=== PATIENT | female | born 1990 | race Caucasian/White ===

== ENCOUNTER 2021-12-22 11:47 | Outpatient (CLI) | payer BC, SELFPAY ==
[2021-12-22 20:16] LABS: Lab Add On Test New Spec Needed
[2021-12-23 14:28] LABS: Strep B DNA Probe NEGATIVE (Negative)
--- OUTSIDE RECORDS SUMMARY | 2021-12-29 21:56 | XMS_ITS | Encounter Summary ---
:1990 Author Organization [facility] Address [address] [place] [address] Care Team Providers Name Role Phone Unassigned, Pcp Primary Care Provider Unavailable Encounter Details Date Type Department Care Team Description 06/11/2021 Silent Schedule Department of Moni Gross Encounter For Obstetrics and E MIvory Supervision Of Other Gynecology in [address] Normal [place], [place] Unspecified Trimester [address] [address] [place], [place] [phone] (Work) [phone] Social History Tobacco Use Types Packs/Day Years Used Date Smoking Tobacco: Never Smokeless Tobacco: Never Alcohol Use Standard Drinks/Week Comments Not Currently 0 (1 standard drink = 0.6 oz pure alcoho l) Alcohol Habits Answer Date Recorded How often do you have a drink containing alcohol? Never 05/22/2021 How many drinks containing alcohol do you have on a typical Not asked day when you are drinking? How often do you have six or more drinks on one occasion? No t asked Comment: Not asked Social Isolation Answer Date Recorded In a typical week, how many times do you More than three marianne es a week 05/22/2021 talk on the phone with family, friends, or neighbors? How often do you get together with friends Twice a week 05/22/2021 or relatives? How often do you attend christian or Never 2020 druze services? Do you belong to any clubs or No 05/22/2021 organizations such as christian groups, unions, fraternal or athletic groups, or school groups? How often do you attend meetings of the Never 05/22/2021 clubs or organizations you belong to? Are you now , , , Never 05/22/2021 , never or living with a partner? Physical Activity Answer Date Recorded On average, how many days per week do you engage in moderate to 6 days 05/22/2021 strenuous exercise (like walking fast, running, jogging, dancing, swimming, biking, or other activities that cause a light or heavy sweat)? On average, how many minutes do you engage in exercise at th is 50 min 05/22/2021 level? Stress Answer Date Recorded Do you feel stress - tense, restless, nervous, or Only a lit tle 05/22/2021 anxious, or unable to sleep at night because your mind is troubled all the time - these days? Financial Resource Strain Answer Date Recorded How hard is it for you to pay for the very basics like Not h ernesto at all 05/22/2021 food, housing, medical care, and heating? Intimate Partner Violence Answer Date Recorded Within the last year, have you been afraid of your partner o r No 05/22/2021 ex-partner? Within the last year, have you been humiliated or emotionall y No 05/22/2021 abused in other ways by your partner or ex-partner? Within the last year, have you been kicked, hit, slapped, or No 05/22/2021 otherwise physically hurt by your partner or ex-partner? Within the last year, have you been raped or forced to have any No 05/22/2021 kind of sexual activity by your partner or ex-partner? Food Insecurity Answer Date Recorded Within the past 12 months, you worried that your food would Never true 05/22/2021 run out before you got money to buy more. Within the past 12 months, the food you bought just didn't N ever true 05/22/2021 last and you didn't have money to get more. Transportation Needs Answer Date Recorded In the past 12 months, has lack of transportation kept you f rom No 05/22/2021 medical appointments or from getting medications? In the past 12 months, has lack of transportation kept you f rom No 05/22/2021 meetings, work, or getting things needed for daily living? Housing Stability Answer Date Recorded In the last 12 months, was there a time when you were not ab le No 05/22/2021 to pay the mortgage or rent on time? In the last 12 months, how many places have you lived? 1 05/22/2021 In the last 12 months, was there a time when you did not hav e a No 05/22/[address] to sleep or slept in a [facility] (including now)? Education Answer Date Recorded What is the highest level of school Bachelor's degree (e.g., BA, AB, 05/22/2021 you have completed or the highest BS) degree you have received? Sex Assigned at Date Recorded Female 05/18/2021 7:19 PM OVERHEAD CRANE TECHNICIAN documented as of this encounter Plan of Treatment Not on filedocumented as of this encounter Procedures Procedure Name Priority Date/Time Associated Comments Diagnosis US OB FIRST RAD - Routine 06/11/2021 9:19 Encounter For Results fo r this TRIMESTER (most inpatients AM OVERHEAD CRANE TECHNICIAN Supervision Of procedure are in and all Other Normal the results outpatients) section. Unspecified Trimester documented in this encounter Results US OB First Trimester (06/11/2021 9:19 AM OVERHEAD CRANE TECHNICIAN) Anatomical Region Laterality Modality Body, Ultrasound OB RST LOS, Ultrasound ARZ LOS N/A Ultrasound Specimen (Source) Anatomical Collection Method Collection Time Re ceived Time Location / / Volume Laterality 06/11/2021 10:09 AM OVERHEAD CRANE TECHNICIAN Impressions 06/11/2021 10:11 AM OVERHEAD CRANE TECHNICIAN Single, viable, intrauterine with ultrasound derived estimated due date consistent with prior LMP dating. ??Subchorionic hemorrhage present. In general, it is reasonable to use the sonographically derived EDWARD if it differs from that calculated using the last menstrual period (LMP) by more than seven days in the fir st trimester and by more than 10 days in the second trimester. In the third trimester, a three-week discrepancy between LMP dating and ultra sound dating is allowed before changing EDWARD. [facility] in [place] ARMORED SERVICE TECHNICIAN Dept. [phone] Narrative 06/11/2021 10:11 AM OVERHEAD CRANE TECHNICIAN First Trimester Ultrasound EXAM: US OB FIRST TRIMESTER HEALTH CARE PROVIDER: Dr. Gross COMPARISON: N/A RELEVANT CLINICAL INFORMATION/INDICATION : dating Estimated Date of Delivery (EDWARD) by LMP: 01/20/2022. Gestational age by LMP: 8 weeks 1 day FINDINGS: Gestational Sac: single, intrauterine Yolk Sac: 3.5 mm. heart rate: 161 beats per minute. [place] Rump Length: 19 mm. Age and EDWARD by current ultrasound measur ements: ??8 weeks 3 days, EDWARD 01/18/2022. Right ovary: normal Left ovary: normal Adnexa: normal Uterus: 2.2 x 1.4 x 1.1 cm subchorionic hemorrhage Uterine position: anteverted Cul-de-sac: normal Procedure Note Neelam Wagner M.D. - 06/11/2021Form atting of this note might be different from the original. First Trimester Ultrasound EXAM: US OB FIRST TRIMESTER HEALTH CARE PROVIDER: Dr. Gross COMPARISON: N/A RELEVANT CLINICAL INFORMATION/INDICATION : dating Estimated Date of Delivery (EDWARD) by LMP: 01/20/2022. Gestational age by LMP: 8 weeks 1 day FINDINGS: Gestational Sac: single, intrauterine Yolk Sac: 3.5 mm. heart rate: 161 beats per minute. [place] Rump Length: 19 mm. Age and EDWARD by current ultrasound measur ements: 8 weeks 3 days, EDWARD 01/18/2022. Right ovary: normal Left ovary: normal Adnexa: normal Uterus: 2.2 x 1.4 x 1.1 cm subchorionic hemorrhage Uterine position: anteverted Cul-de-sac: normal IMPRESSION: Single, viable, intrauterine w ith ultrasound derived estimated due date consistent with prior LMP dating. Subchorionic hemorrhage present. In general, it is reasonable to use the sonographically derived EDWARD if it differs from that calculated using the last menstrual period (LMP) by more than seven days in the fir st trimester and by more than 10 days in the second trimester. In the third trimester, a three-week discrepancy between LMP dating and ultra sound dating is allowed before changing EDWARD. [facility] in [place] ARMORED SERVICE TECHNICIAN Dept. [phone] Moni Gross M.D. IMG OB US PROCEDURES documented in this encounter Visit Diagnoses Diagnosis Encounter For Supervision Of Other Veronica l Unspecified Trimester (HCC) documented in this encounter Additional Health Concerns Assessment Noted Time PHQ-9 Depression Total Score: 1 06/11/2021 10:22 AM CS T documented as of this encounter Care Teams Detective Chief Relationship Specialty Start Date End Date Unassigned, Pcp PCP - General Family Medicine 06/11/21 documented as of this encounter
--- OUTSIDE RECORDS SUMMARY | 2021-12-29 21:56 | XMS_ITS | Encounter Summary ---
:1990 Author Organization [facility] Address [address] [place] [address] Care Team Providers Name Role Phone Unassigned, Pcp Primary Care Provider Unavailable Encounter Details Date Type Department Care Team Description 06/11/2021 Hospital Encounter Department of Moni Gross For Laboratory Medicine Liz Barr Supervision Of Other in [place], [address] Normal [place], [place] Unspecified [address] [address] Trimester [place], [place] [phone] (Work) [phone] Social History Tobacco Use Types Packs/Day Years [...] or relatives? How often do you attend judaism or Never 2020 mormon services? Do you belong to any clubs or No 05/22/2021 organizations such as judaism groups, unions, fraternal or athletic groups, or [...] place to sleep or slept in a long-term (including now)? Education Answer Date Recorded What is the highest level of school Bachelor's degree (e.g., BA, AB, 05/22/2021 you have completed or the highest BS) degree you have received? Sex Assigned at Date Recorded Female 05/18/2021 7:19 PM HOT SAW HELPER documented as of this encounter Medications at Time of Discharge Medication Sig Dispensed Refills Start Date End Date vits96/iron Take 2 tablets by 0 fum/folic ( mouth daily. vitamin-ferrous fumarate-FA) 27 mg iron- 800 mcg per tablet documented as of this encounter Plan of Treatment Not on filedocumented as of this encounter Procedures Procedure Name Priority Date/Time Associated Diagnosis Comme nts HIV-1/-2 AG AND AB Routine 06/11/2021 9:02 AM Encounter For Re sults for this SCRN, HOT SAW HELPER Supervision Of Other proce dure are in PLASMA Normal the results Unspecified section. Trimester SYPHILIS TOTAL AB Routine 06/11/2021 9:02 AM Encounter For Res ults for this W/ REFLEX S HOT SAW HELPER Supervision Of Other procedu re are in Normal the results Unspecified section. Trimester HBS ANTIGEN Routine 06/11/2021 9:02 AM Encounter For Results for this , S HOT SAW HELPER Supervision Of Other procedu re are in Normal the results Unspecified section. Trimester ABORH, RBC Routine 06/11/2021 9:02 AM Encounter For Results for this HOT SAW HELPER Supervision Of Other procedu re are in Normal the results Unspecified section. Trimester RUBELLA ANTIBODIES, Routine 06/11/2021 9:02 AM Encounter For R esults for this IGG HOT SAW HELPER Supervision Of Other procedu re are in Normal the results Unspecified section. Trimester CBC WITHOUT Routine 06/11/2021 9:02 AM Encounter For Results for this DIFFERENTIAL, B HOT SAW HELPER Supervision Of Other proc edure are in Normal the results Unspecified section. Trimester ANTIBODY SCREEN, B Routine 06/11/2021 9:02 AM Encounter For Re sults for this HOT SAW HELPER Supervision Of Other procedu re are in Normal the results Unspecified section. Trimester documented in this encounter Results Syphilis Total Ab w/ Reflex, Serum (06/11/2021 9:02 AM HOT SAW HELPER) [facility] gist Method Time Signature Syphilis Nonreactive Nonreactive 06/14/2021 [facility] Total Ab w/ 3:47 PM HOT SAW HELPER Reflex Comment: No serologic evidence of infection with T. pallidum (syphilis). ??Repeat testing may be cons idered in patients with suspected acute or primary syphilis in 2-4 weeks. For additional information on interpreta tion of the syphilis reverse algorithm and resul ts, see: [email or web address] df Specimen Anatomical Collection Method Collection Time Receive d Time (Source) Location / / Volume Laterality Blood (Blood, 06/11/2021 9:02 AM 06/14/19 1:54 Venous) HOT SAW HELPER PM HOT SAW HELPER Moni Gross M.D. LAB BLOOD ADD-ON Performing Organization Address City/State/[facility] Phon e Number [facility] [address] [place] [address] SUPPORT CENTER [facility] [place] [address] Laboratory Medicine and Pathology [address] [place] Rubella Antibodies, IgG (06/11/2021 9:02 AM HOT SAW HELPER) athologist Signature Rubella Ab, Positive 06/12/2021 [facility] IgG, S 9:27 PM HOT SAW HELPER Comment: Results suggest response to immunization or prior exposure to the virus. ----REFERENCE VALUE---- Vaccinated: Positive (>=1.0 AI) Unvaccinated: Negative (<=0.7 AI) Rubella IgG Antibody Index 1.9 06/12/2021 9: 27 PM HOT SAW HELPER [facility] Specimen Anatomical Collection Method Collection Time Receive d Time (Source) Location / / Volume Laterality Blood (Blood, 06/11/2021 9:02 AM 06/11/19 3:36 Venous) HOT SAW HELPER PM HOT SAW HELPER Moni Gross M.D. LAB MICROBIOLOGY - BLOOD ORD ERABLES Performing Organization Address City/State/ZIP Code Phon e Number [phone] [place] [address] System [address] HIV-1/-2 Ag and Ab Scrn, Plasma (06/11/2021 9:02 AM HOT SAW HELPER) athologist Signature HIV Ag/Ab Negative Negative 06/12/2021 [facility] Scrn, 9:27 PM HOT SAW HELPER P Comment: Negative result does not rule out HIV in fection. If exposure to HIV infection occurred <14 d ays ago, contact the laboratory to request additi on of HIV-1 RNA detection / quantification test. HIV-1 p24 Ag Scrn, P Negative Negative 06/12/2021 9:27 PM HOT SAW HELPER [facility] Comment: Negative result does not rule out HIV in fection. If exposure to HIV infection occurred <14 d ays ago, contact the laboratory to request additi on of HIV-1 RNA detection / quantification test. HIV-1 Ab Scrn, P Negative Negative 06/12/2021 9:2 7 PM HOT SAW HELPER [facility] Comment: Negative result does not rule out HIV in fection. If exposure to HIV infection occurred <14 d ays ago, contact the laboratory to request additi on of HIV-1 RNA detection / quantification test. HIV-2 Ab Scrn, P Negative Negative 06/12/2021 9:2 7 PM HOT SAW HELPER [facility] Comment: Negative result does not rule out HIV in fection. If exposure to HIV infection occurred <14 d ays ago, contact the laboratory to request additi on of HIV-1 RNA detection / quantification test. Specimen Anatomical Collection Method Collection Time Receive d Time (Source) Location / / Volume Laterality Blood (Blood, 06/11/2021 9:02 AM 06/11/19 3:36 Venous) HOT SAW HELPER PM HOT SAW HELPER Moni Gross M.D. LAB MICROBIOLOGY - BLOOD ORD ERABLES Performing Organization Address City/State/ZIP Code Phon e Number [phone] [place] [address] System in [address] HBs Antigen , Serum (06/11/2021 9:02 AM HOT SAW HELPER) athologist Signature HBs Antigen Negative Negative 06/12/2021 [facility] , S 9:26 AM HOT SAW HELPER Specimen Anatomical Collection Method Collection Time Receive d Time (Source) Location / / Volume Laterality Blood (Blood, 06/11/2021 9:02 AM 06/12/19 7:17 Venous) HOT SAW HELPER AM HOT SAW HELPER Moni Gross M.D. LAB MICROBIOLOGY - BLOOD ORD ERABLES Performing Organization Address City/[facility]/ZIP Code Phon e Number [facility] [address] [place], [place] [address] SUPPORT CENTER [facility] [place] [address] Laboratory Medicine and Pathology [address] [place] CBC without Differential (06/11/2021 9:02 AM HOT SAW HELPER) P athologist Signature Hemoglobin 13.4 11.6 - 06/11/2021 [facility] 15.0 g/dL 9:11 AM HOT SAW HELPER Hematocrit 39.4 35.5 - 06/11/2021 [facility] 44.9 % 9:11 AM HOT SAW HELPER Erythrocytes 4.40 3.92 - 06/11/2021 [facility] 5.13 9:11 AM HOT SAW HELPER x10(12)/L MCV 89.5 78.2 - 06/11/2021 [facility] 97.9 fL 9:11 AM HOT SAW HELPER RBC Distrib Width 12.7 12.2 - 06/11/2021 [facility] 16.1 % 9:11 AM HOT SAW HELPER Platelet Count 163 157 - 371 06/11/2021 [facility] x10(9)/L 9:11 AM HOT SAW HELPER Leukocytes 5.7 3.4 - 9.6 06/11/2021 [facility] x10(9)/L 9:11 AM HOT SAW HELPER Specimen Anatomical Collection Method Collection Time Receive d Time (Source) Location / / Volume Laterality Blood (Blood, 06/11/2021 9:02 AM 06/11/19 9:03 Venous) HOT SAW HELPER AM HOT SAW HELPER Moni Gross M.D. LAB BLOOD ADD-ON Performing Organization Address City/State/ZIP Code Phon e Number [facility]- [address] [place] [address] [place] [address] System in [place] [address] Antibody Screen, RBC (with reflex Antibody ID) (06/11/2021 9:02 AM HOT SAW HELPER) athologist Signature Antibody Screen NEG 06/11/2021 A[facility] 6:18 PM HOT SAW HELPER Specimen Anatomical Collection Method Collection Time Receive d Time (Source) Location / / Volume Laterality Blood (Blood, 06/11/2021 9:02 AM 06/11/19 3:04 Venous) HOT SAW HELPER PM HOT SAW HELPER Moni Gross M.D. LAB BLOOD BANK TEST ORDERABL ES Performing Organization Address City/State/ZIP Code Phon e Number [facility]- [address] [place] [address] [place] [place], [place] [id number] [place] [address] ABORh, RBC (06/11/2021 9:02 AM HOT SAW HELPER) athologist Signature ABO Group A 06/11/2021 6:18 AUST PM HOT SAW HELPER Rh Type POS 06/11/2021 6:18 AUST PM HOT SAW HELPER Specimen Anatomical Collection Method Collection Time Receive d Time (Source) Location / / Volume Laterality Blood (Blood, 06/11/2021 9:02 AM 06/11/19 3:04 Venous) HOT SAW HELPER PM HOT SAW HELPER Moni Gross M.D. LAB BLOOD BANK TEST ORDERABL ES Performing Organization Address City/[facility]/ZIP Code Phon e Number [facility]- [address] [place] [address] [place] [facility] [place], [place] [id number] [place] [address] [address] [facility] documented in this encounter Visit Diagnoses Diagnosis Encounter For Supervision Of Other Veronica l Unspecified Trimester (HCC) documented in this encounter Additional Health Concerns Assessment Noted Time PHQ-9 Depression Total Score: 1 06/11/2021 10:22 AM CS T documented as of this encounter Care Teams Treater Relationship Specialty Start Date End Date Unassigned, Pcp PCP - General Family Medicine 06/11/21 documented as of this encounter
--- OUTSIDE RECORDS SUMMARY | 2021-12-29 21:56 | XMS_ITS | Encounter Summary ---
:1990 Author Organization [facility] Address [address] [place] [address] Care Team Providers Name Role Phone Unassigned, Pcp Primary Care Provider Unavailable Reason for Referral Outpatient (Routine) - Closed Specialty Diagnoses / Procedures Referred By Contact Refer red To Contact Family Medicine Moni Gross M. D. [facility] Region [address] [place] [address] Referral ID Status Reason Start Date Expiration Date Visits Requ ested Visits Authorized [id number] Closed 06/11/2021 06/11/2022 1 1 SORTER Reason for Visit Reason Comments Initial Visit Ultrasound Results Outpatient (Routine) - Closed Specialty Diagnoses / Procedures Referred By Contact Refer red To Contact Family Medicine Diagnoses Encounter For Supervision Of Other Normal Unspecified Trimester ([facility]) Moni Gross M.D. [facility] Region [address] [place] [address] Referral ID Status Reason Start Date Expiration Date Visits Requ ested Visits Authorized [id number] Closed 05/18/2021 05/18/2022 1 1 Encounter Details Date Type Department Care Team Description 06/11/2021 Routine Department of Moni Wallis For MedicineAria M.D. Supervision Of Other Clinic, in [facility] [address] [place], [place] Unspecified Trimester [address] [address] MADELYN RHODES [phone] (Work) [phone] Social History Tobacco Use Types Packs/Day Years [...] or relatives? How often do you attend yarsanism or Never 2020 judaism services? Do you belong to any clubs or No 05/22/2021 organizations such as yarsanism groups, unions, fraternal or athletic groups, or [...] place to sleep or slept in a care home (including now)? Education Answer Date Recorded What is the highest level of school Bachelor's degree (e.g., BA, AB, 05/22/2021 you have completed or the highest BS) degree you have received? Sex Assigned at Date Recorded Female 05/18/2021 7:19 PM SPUD SORTER documented as of this encounter Last Filed Vital Signs Vital Sign Reading Time Taken Comments Blood Pressure 108/70 06/11/2021 10:22 AM SPUD SORTER Pulse - - Temperature - - Respiratory Rate - - Oxygen Saturation - - Inhaled Oxygen Concentration - - Weight 80.8 kg (178 lb 2.1 oz) 06/11/2021 10:22 AM SPUD SORTER Height - - Body Mass Index - - documented in this encounter H&P Notes Moni Gross M.D. - 06/11/2021 10:15 AM CST SUBJECTIVE CHIEF COMPLAINT/REASON FOR VISIT Initial OB visit. HISTORY OF PRESENT ILLNESS Shaye Choe is a 30 y.o. female who presents to the clinic today for her first OB visit. Her last menstrual cycle was on 04/15/2021 putting her at 8w1d gestation with Estimated Date of Delivery: 01/20/22. Patient reports having nausea all day. We discussed small frequent meals. At this point, fatigue hasnot been too bad. For the most part, the patient says she is feeling ok. We went over all counseling and answered all questions. The patient has completed her lab work. I also discussed screening options. There are no concerns at this time. REVIEW OF SYSTEMS Please see HPI for pertinent positives, otherwise rest of ROS negative. CURRENT MEDICATIONS Current Outpatient Medications Medication Sig Dispense Refill ??? vits96/iron fum/folic ( vitamin-ferrous fumarate-FA) 27 mg iron- 800 mcg per tablet Take 2 tablets by mouth daily. No current facility-administered medications for this visit. ALLERGIES/CONTRAINDICATIONS Allergies Allergen Reactions ??? Neomycin-Polymyxin B-Dexameth Edema, Other (see comments) and Itching MEDICAL HISTORY Past Medical History: Diagnosis Date ??? Dysmenorrhea ??? Varicella SURGICAL HISTORY No past surgical history on file. SOCIAL HISTORY Social History Socioeconomic History ??? Marital status: Single ??? Number of children: 1 ??? Highest education level: Bachelor's degree (e.g., BA, AB, BS) Tobacco Use ??? Smoking status: Never Smoker ??? Smokeless tobacco: Never Used Vaping Use ??? Vaping Use: never used Substance and Sexual Activity ??? Alcohol use: Not Currently ??? Drug use: Never Social Determinants of Health Financial Resource Strain: Low Risk ??? Difficulty of Paying Living Expenses: Not hard at all Food Insecurity: No Food Insecurity ??? Worried About Running Out of Food in the Last Year: Never true ??? Ran Out of Food in the Last Year: Never true Transportation Needs: No Transportation Needs ??? Lack of Transportation (Medical): No ??? Lack of Transportation (Non-Medical): No Physical Activity: Sufficiently Active ??? Days of Exercise per Week: 6 days ??? Minutes of Exercise per Session: 50 min Stress: No Stress Concern Present ??? Feeling of Stress : Only a little Social Connections: Socially Isolated ??? Frequency of Communication with Friends and Family: More than three times a week ??? Frequency of Social Gatherings with Friends and Family: Twice a week ??? Attends Mandaeism Services: Never ??? Active Member of Clubs or Organizations: No ??? Attends Club or Organization Meetings: Never ??? Marital Status: Never Intimate Partner Violence: Not At Risk ??? Fear of Current or Ex-Partner: No ??? Emotionally Abused: No ??? Physically Abused: No ??? Sexually Abused: No Housing Stability: Low Risk ??? Unable to Pay for Housing in the Last Year: No ??? Number of Places Lived in the Last Year: 1 ??? Unstable Housing in the Last Year: No Social History Substance and Sexual Activity Drug Use Never Social History Substance and Sexual Activity Alcohol Use Not Currently FAMILY HISTORY Family History Problem Relation Age of Onset ??? Miscarriages / Stillbirths Mother ??? Learning disabilities Brother ??? ADD / ADHD Brother ??? Eczema Son ??? Rashes / Skin problems Son OBJECTIVE VITAL SIGNS Vitals: 06/11/21 1022 BP: 108/70 Weight: 80.8 kg There is no height or weight on file to calculate BMI. PHYSICAL EXAMINATION General: Pleasant female in no distress. HENT: TMs are normal. Mouth is moist. Pharynx is normal. Neck: Neck is supple. Heart: S1, S2 regular rate and rhythm without murmurs or rubs. Lungs: Clear to auscultation. No wheezing, rales, or rhonchi. Abdomen: Soft. I was unable to detect heart tones at this time. Pelvis: Deferred. US done for dating. Extremities: No pitting edema, clubbing, or cyanosis. Neuro: Otherwise intact. ASSESSMENT / PLAN Supervision of normal single intrauterine at 8w1d gestation Estimated Date of Delivery: 01/20/22 by LMP of 04/15/2021, Rubella immune, syphilis negative. PLAN: All labs were completed, and she has already met with Tanya Mora. Early screen was discussed. Routine counseling is given today. We reviewed her ultrasound and discussed her subchorionic hemorrhage. I explained what it was and what to be on the look out for. Patient will continue routine care. She will followup in 4 weeks for her next OB visit. She will call with any questions or concerns. This document serves as a record of services personally performed by Moni Gross M.D.. It was created on their behalf by Monique Esposito, a trained medical and scientific illustrator. The creation of this record isbased on the scribe remotely listening to the visit and the provider's statements to them. This document has been checked and approved by the attending provider. Answers for HPI/ROS submitted by the patient on 05/22/2021 Fatigue: Yes No general issues: Yes No eye issues: Yes No ENT issues: Yes No heart issues: Yes No respiratory issues: Yes Abdominal (belly) pain or cramping: Yes Constipation: Yes No muscle/bone issues: Yes No skin issues: Yes No neurologic issues: Yes No mental health issues: Yes No blood/lymph issues: Yes No urinary/reproductive issues: Yes SORTER documented in this encounter Plan of Treatment Scheduled Referrals Name Type Priority Associated Diagnoses Order S [facility] Family Medicine Outpatient Referral Routine Expec axel: office visit 07/12/2021 (clinic) (Approximate), Expires: 09/09/2022 documented as of this encounter Visit Diagnoses Diagnosis Encounter For Supervision Of Other Veronica anthony Unspecified Trimester (HCC) documented in this encounter Additional Health Concerns Assessment Noted Time PHQ-9 Depression Total Score: 1 06/11/2021 10:22 AM CS T documented as of this encounter Care Teams 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
--- OUTSIDE RECORDS SUMMARY | 2021-12-29 21:56 | XMS_ITS | Encounter Summary ---
:1990 Author Organization [facility] Address [address] [place] [address] Care Team Providers Name Role Phone Unavailable Primary Care Provider Unavailable Reason for Visit Reason Comments Nurse Visit nob ed/intake appt Encounter Details Date Type Department Care Team Description 05/26/2021 Virtual Visit Department of Moni Gross M.D. [address], [place] [address] Encounter For Obstetrics and Shanann Mora R.N. [address], [place] [address] Supervision Of Other Gynecology in Normal [place], [place] Unspecified Trimester [address] [place] [id number] Social History Tobacco Use Types Packs/Day Years [...] or relatives? How often do you attend sikhism or Never 2020 mu-ism services? Do you belong to any clubs or No 05/22/2021 organizations such as sikhism groups, unions, fraternal or athletic groups, or [...] place to sleep or slept in a jail (including now)? Education Answer Date Recorded What is the highest level of school Bachelor's degree (e.g., BA, AB, 05/22/2021 you have completed or the highest BS) degree you have received? Sex Assigned at Date Recorded Female 05/18/2021 7:19 PM SUMAC TANNER documented as of this encounter Patient Instructions Patient InstructionsShannan Mora R.N. - 05/26/2021 10:30 AM CST Review education books, brochures, handouts provided today. Be sure to let your provider know if youwould like to do the optional testing. Avoid: alcohol, drugs, smoking during . Exercise: at least 30 Minutes, 3 times per week following precautions discussed today. Follow healthy diet to maintain healthy weight gain. Discuss any medication/supplements with your provider before taking. Call or portal message your care team with any symptoms of depression. Call or portal message with any question or concerns. Material Provided Today: Beginnings: , , and [facility] brochure-[facility] C TANNER documented in this encounter Progress Notes Shannan Mora R.N. - 05/26/2021 10:30 AM CST Consult conducted via real-time audio/video technology by Shannan Mora R.N. in [facility], [place] to the patient in Patient's Home. episode opened-please see history for details. States is very active with exercise and weight lifting-has adjusted with . Advised should cause any back/abdominal discomfort or SOB. Questions about calcium requirement. Discussed and sent Source of Calcium brochure via portal. Discussed COVID 19 precautions: vaccination, good handwashing, social distance, masking. Encouraged to call with questions or concerns. C TANNER documented in this encounter Plan of Treatment Not on filedocumented as of this encounter Results (ABNORMAL) Bacterial Culture, Aerobic + Susc, Urine (06/11/2021 9:20 AM SUMAC TANNER) Analysis Performed At Patho logist Time Signature Urine Culture Mixed 06/12/2021 MKTO hilda. (A) 9:12 AM SUMAC TANNER Specimen Anatomical Collection Method Collection Time Receive d Time (Source) Location / / Volume Laterality Urine (Urine, 06/11/2021 9:20 AM 06/11/19 2:06 Midstream) SUMAC TANNER PM SUMAC TANNER Comment: Specimen Source Site: Urine Moni Gross M.D. LAB MICROBIOLOGY - GENERAL O RDERABLES Performing Organization Address City/State/ZIP Code Phon e Number [facility]- [address] [place] [address] [place] [address] System [address] (ABNORMAL) Urinalysis with Microscopic if Indicated (06/11/2021 9:20 AM SUMAC TANNER) P athologist Signature Source Urine, 06/11/2021 OWAT Urine, Clean 9:33 AM SUMAC TANNER Catch Clarity Cloudy (A) Clear 06/11/2021 OWAT 9:33 AM SUMAC TANNER Color Yellow 06/11/2021 OWAT 9:33 AM SUMAC TANNER Comment: ----REFERENCE VALUE---- Colorless Yellow Juanita Blood Negative Negative 06/11/2021 9:33 AM SUMAC TANNER [place] Nitrite Negative Negative 06/11/2021 9:33 AM SUMAC TANNER [place] Leukocyte Esterase Small (A) Negative 06/11/2021 9:33 AM CS T OW[place] Protein Negative mg/dL 06/11/2021 9:33 AM SUMAC TANNER [place] Comment: ----REFERENCE VALUE---- Negative Trace Glucose Negative Negative mg/dL 06/11/2021 9:33 AM SUMAC TANNER [place] Ketone Negative Negative mg/dL 06/11/2021 9:33 AM SUMAC TANNER OW AT Bilirubin Negative Negative 06/11/2021 9:33 AM SUMAC TANNER OW[place] pH 7.0 5.0 - 8.0 06/11/2021 9:33 AM SUMAC TANNER [place] Specific [place] 1.006 1.001 - 1.035 06/11/2021 9:33 AM SUMAC TANNER [place] Urobilinogen 0.2 0.2 - 1.0 mg/dL 06/11/2021 9:33 AM CS T OWAT Specimen Anatomical Collection Method Collection Time Receive d Time (Source) Location / / Volume Laterality Urine (Urine, 06/11/2021 9:20 AM 06/11/19 9:27 Clean Catch) SUMAC TANNER AM SUMAC TANNER Moni Gross M.D. LAB URINE ORDERABLES Performing Organization Address City/[facility] Code Phon e Number [facility]- [address] [place] [address] [facility] [place] [address] System in [place] [address] Syphilis Total Ab w/ Reflex, Serum (06/11/2021 9:02 AM SUMAC TANNER) [facility] Method Time Signature Syphilis Nonreactive Nonreactive 06/14/2021 SDSC Total Ab w/ 3:47 PM SUMAC TANNER Reflex Comment: No serologic evidence of infection with T. pallidum (syphilis). ??Repeat testing may be cons idered in patients with suspected acute or primary syphilis in 2-4 weeks. For additional information on interpreta tion of the syphilis reverse algorithm and resul ts, see: [email or web address] Specimen Anatomical Collection Method Collection Time Receive d Time (Source) Location / / Volume Laterality Blood (Blood, 06/11/2021 9:02 AM 06/14/19 1:54 Venous) SUMAC TANNER PM SUMAC TANNER Moni Gross M.D. LAB BLOOD ADD-ON Performing Organization Address City/[facility]/ZIP [facility] [place] e Number [facility] [address] [place] [address] [place] [address] [place] [address] Laboratory Medicine and Pathology [address] MADDEN Rubella Antibodies, IgG (06/11/2021 9:02 AM SUMAC TANNER) athologist Signature Rubella Ab, Positive 06/12/2021 [facility] IgG, S 9:27 PM SUMAC TANNER Comment: Results suggest response to immunization or prior exposure to the virus. ----REFERENCE VALUE---- Vaccinated: Positive (>=1.0 AI) Unvaccinated: Negative (<=0.7 AI) Rubella IgG Antibody Index 1.9 06/12/2021 9: 27 PM SUMAC TANNER [place] Specimen Anatomical Collection Method Collection Time Receive d Time (Source) Location / / Volume Laterality Blood (Blood, 06/11/2021 9:02 AM 06/11/19 3:36 Venous) SUMAC TANNER PM SUMAC TANNER Moni Gross M.D. LAB MICROBIOLOGY - BLOOD ORD ERABLES Performing Organization Address City/State/ZIP Code Phon e Number [facility]- [address] [place] [address] [place] [address] System [address] HIV-1/-2 Ag and Ab Scrn, Plasma (06/11/2021 9:02 AM SUMAC TANNER) athologist Signature HIV Ag/Ab Negative Negative 06/12/2021 [facility] Scrn, 9:27 PM SUMAC TANNER Comment: Negative result does not rule out HIV in fection. If exposure to HIV infection occurred <14 d ays ago, contact the laboratory to request additi on of HIV-1 RNA detection / quantification test. HIV-1 p24 Ag Scrn, P Negative Negative 06/12/2021 9:27 PM SUMAC TANNER CA Comment: Negative result does not rule out HIV in fection. If exposure to HIV infection occurred <14 d ays ago, contact the laboratory to request additi on of HIV-1 RNA detection / quantification test. HIV-1 Ab Scrn, P Negative Negative 06/12/2021 9:2 7 PM SUMAC TANNER [facility] Comment: Negative result does not rule out HIV in fection. If exposure to HIV infection occurred <14 d ays ago, contact the laboratory to request additi on of HIV-1 RNA detection / quantification test. HIV-2 Ab Scrn, P Negative Negative 06/12/2021 9:2 7 PM SUMAC TANNER [facility] Comment: Negative result does not rule out HIV in fection. If exposure to HIV infection occurred <14 d ays ago, contact the laboratory to request additi on of HIV-1 RNA detection / quantification test. Specimen Anatomical Collection Method Collection Time Receive d Time (Source) Location / / Volume Laterality Blood (Blood, 06/11/2021 9:02 AM 06/11/19 22 3:36 Venous) SUMAC TANNER PM SUMAC TANNER Moni Gross M.D. LAB MICROBIOLOGY - BLOOD ORD ERABLES Performing Organization Address City/[facility]/ZIP Code Phon e Number [facility]- [address] [place] [address] [place] [address] [address] HBs Antigen , Serum (06/11/2021 9:02 AM SUMAC TANNER) athologist Signature HBs Antigen Negative Negative 06/12/2021 [facility] , S 9:26 AM SUMAC TANNER Specimen Anatomical Collection Method Collection Time Receive d Time (Source) Location / / Volume Laterality Blood (Blood, 06/11/2021 9:02 AM 06/12/19 22 7:17 Venous) SUMAC TANNER AM SUMAC TANNER Moni Gross M.D. LAB MICROBIOLOGY - BLOOD ORD ERABLES Performing Organization Address City/State/ZIP Code Phon e Number [facility] [address] [place] [address] [facility] [place] [address] Laboratory Medicine and Pathology [address] MADDEN CBC without Differential (06/11/2021 9:02 AM SUMAC TANNER) athologist Signature Hemoglobin 13.4 11.6 - 06/11/2021 OWAT 15.0 g/dL 9:11 AM SUMAC TANNER Hematocrit 39.4 35.5 - 06/11/2021 OWAT 44.9 % 9:11 AM SUMAC TANNER Erythrocytes 4.40 3.92 - 06/11/2021 OW[place] 5.13 9:11 AM SUMAC TANNER x10(12)/L MCV 89.5 78.2 - 06/11/2021 OWAT 97.9 fL 9:11 AM SUMAC TANNER RBC Distrib Width 12.7 12.2 - 06/11/2021 OWAT 16.1 % 9:11 AM SUMAC TANNER Platelet Count 163 157 - 371 06/11/2021 OW[place] x10(9)/L 9:11 AM SUMAC TANNER Leukocytes 5.7 3.4 - 9.6 06/11/2021 OW[place] x10(9)/L 9:11 AM SUMAC TANNER Specimen Anatomical Collection Method Collection Time Receive d Time (Source) Location / / Volume Laterality Blood (Blood, 06/11/2021 9:02 AM 06/11/19 9:03 Venous) SUMAC TANNER AM SUMAC TANNER Moni Gross M.D. LAB BLOOD ADD-ON Performing Organization Address City/State/ZIP Code Phon e Number [facility]- [address] [place] [address] [facility] [place] [address] System in [place] [address] [facility] Antibody Screen, RBC (with reflex Antibody ID) (06/11/2021 9:02 AM SUMAC TANNER) P athologist Signature Antibody Screen NEG 06/11/2021 AUST 6:18 PM SUMAC TANNER Specimen Anatomical Collection Method Collection Time Receive d Time (Source) Location / / Volume Laterality Blood (Blood, 06/11/2021 9:02 AM 06/11/19 3:04 Venous) SUMAC TANNER PM SUMAC TANNER Moni Gross M.D. LAB BLOOD BANK TEST ORDERABL ES Performing Organization Address City/[facility]/ZIP Code Phon e Number [facility]- [address] [place] [address] [facility] [place] [address] [facility] [address] ABORh, RBC (06/11/2021 9:02 AM SUMAC TANNER) P athologist Signature ABO Group A 06/11/2021 6:18 AUST PM SUMAC TANNER Rh Type POS 06/11/2021 6:18 AUST PM SUMAC TANNER Specimen Anatomical Collection Method Collection Time Receive d Time (Source) Location / / Volume Laterality Blood (Blood, 06/11/2021 9:02 AM 06/11/19 3:04 Venous) SUMAC TANNER PM SUMAC TANNER Moni Gross M.D. LAB BLOOD BANK TEST ORDERABL ES Performing Organization Address City/State/ZIP Code Phon e Number [facility]- [address] [place] [address] [facility] [place] [address] [facility] [address] documented in this encounter Visit Diagnoses Diagnosis Encounter For Supervision Of Other Veronica l Unspecified Trimester (HCC) documented in this encounter
--- OUTSIDE RECORDS SUMMARY | 2021-12-29 21:56 | XMS_ITS | Encounter Summary ---
:1990 Author Organization [facility] Address [address] [place] [address] Care Team Providers Name Role Phone Unassigned, Pcp Primary Care Provider Unavailable Reason for Referral Outpatient (Routine) - Closed Specialty Diagnoses / Procedures Referred By Contact Refer red To Contact Moni Arias M. D. [facility] Region [address] [place] [address] Referral ID Status Reason Start Date Expiration Date Visits Requ ested Visits Authorized [id number] Closed 09/28/2021 09/28/2022 1 1 Reason for Visit Reason Comments Routine Visit No concerns Outpatient (Routine) - Closed Specialty Diagnoses / Procedures Referred By Contact Refer red To Contact Moni Arias M. D. [facility] Region [address] [place] [address] Referral ID Status Reason Start Date Expiration Date Visits Requ ested Visits Authorized [id number] Closed 09/01/2021 09/01/2022 1 1 Encounter Details Date Type Department Care Team Description 09/28/2021 Routine Department of Moni Wallis MedicineAria M.D. Other [facility] Clinic, in [place], [address] [place], [place] Trimester (HCC) [address] [address] (Primary Dx) [place], [place] [phone] [address] (Work) [phone] Social History Tobacco Use Types Packs/Day Years [...] or relatives? How often do you attend moravian or Never 2020 hinduism services? Do you belong to any clubs or No 05/22/2021 organizations such as moravian groups, unions, fraternal or athletic groups, or [...] place to sleep or slept in a penitentiary (including now)? Education Answer Date Recorded What is the highest level of school Bachelor's degree (e.g., BA, AB, 05/22/2021 you have completed or the highest BS) degree you have received? 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 - 09/28/2021 7:30 AM CDT SUBJECTIVE CHIEF COMPLAINT/REASON FOR VISIT OB check HISTORY OF PRESENT ILLNESS Shaye Choe is a 31 y.o. female who presents today for routine care at 23w5d gestation for routine care. Denies any contractions, bleeding or fluid leakage. Denies significant pain or swelling. Baby has been active. Denies headache, blurred vision or right upper quadrant pain. Denies any other concerns. History reviewed. Current Medications & Allergies reviewed. REVIEW OF SYSTEMS Please see HPI for pertinent positives, otherwise rest of ROS negative. OBJECTIVE VITAL SIGNS BP 117/73 Wt 95.7 kg LMP 04/15/2021 BMI 31.98 kg/m?? PHYSICAL EXAMINATION General: Well appearing and in no acute distress. Abdomen: Soft, nontender, gravid. heart tones were picked up at 145 bpm. Uterus measures 24 cm. Mental: Patient is alert and oriented x3. Does not appear depressed or anxious. Mood is good with appropriate affect. Speech and thought content and pattern are within normal limits. Cervix: Not evaluated. Skin: Normal color. No worrisome rashes on exposed skin. Extremities: No significant edema. ASSESSMENT / PLAN #1 visit. 31 y.o., female at 23w5d weeks??? estimated gestational age, with due date of Estimated Date of Delivery: 01/20/22 with blood type: ABO Group Date Value Ref Range Status 06/11/2021 A Final Rh Type Date Value Ref Range Status 06/11/2021 POS Final PLAN: Routine counseling is given today. Patient will continue routine care. Discussed routine instructions and signs and symptoms to warrant earlier evaluation. #2 Follow up PLAN: She will followup for her next routine visit in 4 weeks. She will call Labor & Delivery with any questions or concerns about the need to come in earlier for any new symptoms. Moni Gross M.D. documented in this encounter Plan of Treatment Scheduled Referrals Name Type Priority Associated Diagnoses Order S [facility] Medicine Outpatient Referral Routine Expec axel: office visit 10/29/2021 (clinic) (Approximate), Expires: 12/29/2022 documented as of this encounter Results Hemoglobin (10/29/2021 8:28 AM CDT) P athologist Signature Hemoglobin 13.1 11.6 - 15.0 10/29/2021 [facility] g/dL 8:48 AM CDT Specimen Anatomical Collection Method Collection Time Receive d Time (Source) Location / / Volume Laterality Blood (Blood, 10/29/2021 8:28 AM 10/30/19 8:45 Venous) CDT AM CDT Moni Gross M.D. LAB BLOOD ADD-ON Performing Organization Address City/State/ZIP Code Phon e Number [facility]- [address] [facility] [place] [address] [facility] [address] System in [place] [address] Glucose Tolerance Test, 1 hour (10/29/2021 8:28 AM CDT) P athologist Signature Glucose Rhoda, 1 79 <140 mg/dL 10/29/2021 [place] Hr, P 9:11 AM CDT Specimen Anatomical Collection Method Collection Time Receive d Time (Source) Location / / Volume Laterality Blood (Blood, 10/29/2021 8:28 AM 10/30/19 8:45 Venous) CDT AM CDT Moni Gross M.D. LAB BLOOD NON ADD-ON Performing Organization Address City/State/ZIP Code Phon e Number [facility]- [address] [place] [address] [place] [address] System in [place] [address] documented in this encounter Visit Diagnoses Diagnosis Examination Other Normal Pregna ncy Second Trimester (HCC) - Primary documented in this encounter Additional Health Concerns Assessment Noted Time PHQ-9 Depression Total Score: 1 06/11/2021 10:22 AM CS T documented as of this encounter Care Teams Speech Language Pathologist Travel Relationship Specialty Start Date End Date Unassigned, Pcp PCP - General Family Medicine 06/11/21 documented as of this encounter
--- OUTSIDE RECORDS SUMMARY | 2021-12-29 21:56 | XMS_ITS | Encounter Summary ---
:1990 Author Organization [facility] Address [address] [place] [address] Care Team Providers Name Role Phone Unavailable Primary Care Provider Unavailable Reason for Visit Reason Comments Abdominal Cramping Encounter Details Date Type Department Care Team Description 01/08/2021 - Emergency [facility] Procedure And Treatment 01/09/[address] Not Carried Out Due To MADELYN RHODES [address] Patient Leaving Prior To [phone] Being Seen By [facility] Care Provider ( Primary Dx) Social History Tobacco Use Types Packs/Day Years Used Date Smoking Tobacco: Never Assessed Alcohol Habits Answer Date Recorded How often [...] or relatives? How often do you attend quaker or Never 2020 christian services? Do you belong to any clubs or No 05/22/2021 organizations such as quaker groups, unions, fraternal or athletic groups, or [...] place to sleep or slept in a half-way (including now)? 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
--- OUTSIDE RECORDS SUMMARY | 2021-12-29 21:56 | XMS_ITS | Encounter Summary ---
:1990 Author Organization [facility] Address [address] [place] [address] Care Team Providers Name Role Phone Unavailable Primary Care Provider Unavailable Reason for Referral Outpatient (Routine) - Closed Specialty Diagnoses / Procedures Referred By Contact Refer red To Contact Family Medicine Diagnoses Encounter For Supervision Of Other Normal Unspecified Trimester (HCC) Moni Gross M.D. [facility] [address] [place] [address] Referral ID Status Reason Start Date Expiration Date Visits Requ ested Visits Authorized [id number] Closed 05/18/2021 05/18/2022 1 1 Scheduling Instructions NOB after US TIC SURGERY TECHNICIAN Specialty Diagnoses / Procedures Referred By Contact Jackie reyna To Contact Moni Gross M. D. [facility] [address] [place] [address] Referral ID Status Reason Start Date Expiration Date Visits Requ ested Visits Authorized TIC SURGERY TECHNICIAN Encounter Details Date Type Department Care Team Description 05/18/2021 Clinical Communication Department of Gino Wallis MedicineAria M.D. [facility], in [facility] [address] [place], [place] [address] [place], [place] [phone] [address] (Work) [phone] Social History Tobacco Use Types Packs/Day Years [...] or relatives? How often do you attend christianity or Never 2020 muslim services? Do you belong to any clubs or No 05/22/2021 organizations such as christianity groups, unions, fraternal or athletic groups, or [...] place to sleep or slept in a skilled nursing (including now)? Sex Assigned at Date Recorded Female 05/18/2021 7:19 PM PLASTIC SURGERY TECHNICIAN documented as of this encounter Miscellaneous Notes Telephone Encounter - Shannan Mora R.N. - 05/18/2021 10:34 AM CST ASSESSMENT Reason for call: initiate care History: LMP: 04/15/2021 Gestational Age: 4 5/7 wk gestation EDWARD: 01/20/2022 : 3 Para: 1 Miscarriage: 1 Termination: 0 Delivery History: vaginal Have you had any of the following? Previous tubal ? no Diabetes or diabetes in ? no High blood pressure or high blood pressure in ? no Previous blood clots? no Any kidney or liver disease? no Any heart problems? no Received treatment for cancer? no Chronic Illness: no Medications: PNV Seasonal Flu Shot:no COVID vaccine: Had first shot Tobacco Use: no Has had some slight nausea and sleep disturbances. Denies other concerns PLAN Bleeding/pain precautions discussed and to notify clinic during office hours and ED after hours. NOBpacket sent. Early Information sent via portal. Encouraged to call with questions or concerns. Disposition/Recommendation: Please call and assist to schedUS Dorcas and Dr Gross after 06/09.Thanks. Information/Education: patient/caller able to teach back. Caller agreeable to plan of care: yes. The following references were used: nursing clinical judgement. TIC SURGERY TECHNICIAN Telephone Encounter - Jeffrey Villaseñor - 05/18/2021 7:53 AM CST Reason for Communication: Patient calling in with a positive test. Patients LMP was 04/15/21. Patient would like for OB provider. Please call patient back. Current Can Nursing/Provider leave a detailed message?: Yes Did the patient refuse triage through Nurse line? (for symptom based concerns): Action Needed: Please call patient back Name of Medication (if relevant): Please send all scheduling replies to scheduling pool. TIC SURGERY TECHNICIAN documented in this encounter Plan of Treatment Scheduled Referrals Name Type Priority Associated Diagnoses Order S chedule Obstetrics and Outpatient Referral Routine Encounter For Expec axel: Gynecology - Nurse Supervision Of Other 1 07/19/2020 OB education visit Normal (Appr oximate), (clinic) Unspecified Expires: Trimester 08/16/2022 Family Medicine - Outpatient Referral Routine Encounter For Ex pected: Obstetrics consult Supervision Of Other 0 06/10/2021, (clinic) Normal Expires: Unspecified 08/16/2022 Trimester documented as of this encounter Results US OB First Trimester (06/11/2021 9:19 AM PLASTIC SURGERY TECHNICIAN) Anatomical Region Laterality Modality Body, Ultrasound OB RST LOS, Ultrasound ARZ LOS N/A Ultrasound Specimen (Source) Anatomical Collection Method Collection Time Re ceived Time Location / / Volume Laterality 06/11/2021 10:09 AM PLASTIC SURGERY TECHNICIAN Impressions 06/11/2021 10:11 AM PLASTIC SURGERY TECHNICIAN Single, viable, intrauterine with ultrasound derived [...] sound dating is allowed before changing EDWARD. [facility] in [place] HYPERBARIC NURSE Dept. [phone] Narrative 06/11/2021 10:11 AM PLASTIC SURGERY TECHNICIAN First Trimester Ultrasound EXAM: US OB FIRST TRIME[facility]ARE PROVIDER: Dr. Gross COMPARISON: N/A RELEVANT CLINICAL INFORMATION/INDICATION : dating Estimated Date of Delivery (EDWARD) by LMP: 01/20/2022. Gestational age by LMP: 8 weeks 1 day FINDINGS: Gestational Sac: single, intrauterine Yolk Sac: 3.5 mm. heart rate: 161 beats per minute. [place] Rump Length: 19 mm. Age and EDWARD [...] mm. heart rate: 161 beats per minute. [place] Rump Length: 19 mm. Age and EDWARD [...] sound dating is allowed before changing EDWARD. [facility] in [place] HYPERBARIC NURSE Dept. [phone] Moni Gross M.D. IMG OB US PROCEDURES documented in this encounter Visit Diagnoses Diagnosis Encounter For Supervision Of Other Veronica l Unspecified Trimester (HCC) - Primary Encounter For Supervision Of Other Veronica l Unspecified Trimester (HCC) documented in this encounter
--- OUTSIDE RECORDS SUMMARY | 2021-12-29 21:56 | XMS_ITS | Encounter Summary ---
:1990 Author Organization [facility] Address [address] [place] [address] Care Team Providers Name Role Phone Unassigned, Pcp Primary Care Provider Unavailable Reason for Visit Reason Comments Routine Visit No concerns. Outpatient (Routine) - Closed Specialty Diagnoses / Procedures Referred By Contact Refer red To Contact Family Medicine Moni Gross M. D. [facility] Region [address] [place] [address] Referral ID Status Reason Start Date Expiration Date Visits Requ ested Visits Authorized [id number] Closed 06/11/2021 06/11/2022 1 1 Encounter Details Date Type Department Care Team Description 07/13/2021 Routine Department of Moni Wallis Medicine, Aria Barr M.D. Other Normal Clinic, in [place], [address] [place], [place] Trimester (Primary [address] [address] Dx) [place], [place] [phone] [address] (Work) [phone] Social History Tobacco Use Types Packs/Day Years [...] or relatives? How often do you attend druze or Never 2020 yazidism services? Do you belong to any clubs or No 05/22/2021 organizations such as druze groups, unions, fraPictorama or athletic groups, or school groups? How [...] slept in a skilled nursing (including now)? Education Answer Date Recorded What is the highest level of school Bachelor's degree (e.g., BA, AB, 05/22/2021 you have completed or the highest BS) degree you have received? 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 - 07/13/2021 11:45 AM CST SUBJECTIVE CHIEF COMPLAINT/REASON FOR VISIT OB check HISTORY OF PRESENT ILLNESS Shaye Choe is a 31 y.o. female who presents today for routine care at 12w5d gestation for routine care. Denies any bleeding or fluid leakage. Denies significant pain or swelling. Nausea and fatigue are getting better Denies any other concerns. History reviewed. Current Medications & Allergies reviewed. REVIEW OF SYSTEMS Please see HPI for pertinent positives, otherwise rest of ROS negative. OBJECTIVE VITAL SIGNS Temp 36.4 ??C (Tympanic) Resp 17 Ht 173 cm Wt 83.6 kg LMP 04/15/2021 BMI 27.93 kg/m?? PHYSICAL EXAMINATION General: Well appearing and in no acute distress. Abdomen: heart tones detected by handheld doppler at 150 bpm. Mental: Patient is alert and oriented x3. Does not appear depressed or anxious. Mood is good with appropriate affect. Speech and thought content and pattern are within normal limits. Neuro: Grossly nonfocal. Skin: Normal color. Moist mucous membranes. No worrisome rashes on exposed skin. Extremities: No significant edema. ASSESSMENT / PLAN #1 visit. 31 y.o., female at 12w5d weeks??? estimated gestational age, with due date [...] come in earlier for any new symptoms. This document serves as a record of services personally performed by Moni Gross M.D.. It was created on their behalf by Monique Esposito, a trained medical fee clerk. The creation of this record isbased on the scribe remotely listening to the visit and the provider's statements to them. This document has been checked and approved by the attending provider. ING OPERATOR HELPER documented in this encounter Plan of Treatment Not on filedocumented as of this encounter Visit Diagnoses Diagnosis Examination Other Normal Pregna ncy Second Trimester (HCC) - Primary documented in this encounter Additional Health Concerns Assessment Noted Time PHQ-9 Depression Total Score: 1 06/11/2021 10:22 AM CS T documented as of this encounter Care Teams Cut Out Worker Relationship Specialty Start Date End Date Unassigned, Pcp PCP - General Family Medicine 06/11/21 documented as of this encounter
--- OUTSIDE RECORDS SUMMARY | 2021-12-29 21:56 | XMS_ITS | Encounter Summary ---
:1990 Author Organization [facility] Address [address] [place] [address] Care Team Providers Name Role Phone Unassigned, Pcp Primary Care Provider Unavailable Reason for Referral Outpatient (Routine) - Closed Specialty Diagnoses / Procedures Referred By Contact Refer red To Contact Moni Arias M. D. [facility] Region [address] [place] [address] Referral ID Status Reason Start Date Expiration Date Visits Requ ested Visits Authorized [id number] Closed 09/01/2021 09/01/2022 1 1 Reason for Visit Reason Comments Routine Visit Outpatient (Routine) - Closed Specialty Diagnoses / Procedures Referred By Contact Refer red To Contact Moni Arias M. D. [facility] Region [address] [place] [address] Referral ID Status Reason Start Date Expiration Date Visits Requ ested Visits Authorized [id number] Closed 08/10/2021 08/10/2022 1 1 Encounter Details Date Type Department Care Team Description 09/01/2021 Routine Department of Moni Wallis MedicineAria M.D. Other Normal Clinic, in [facility] [address] [place], [place] Trimester (Primary [address] [address] Dx) [place], [place] [phone] [address] (Work) [phone] Social History Tobacco Use Types Packs/Day Years [...] or relatives? How often do you attend roman catholic or Never 2020 jewish services? Do you belong to any clubs or No 05/22/2021 organizations such as roman catholic groups, unions, fraternal or athletic groups, or [...] place to sleep or slept in a custodial (including now)? Education Answer Date Recorded What is the highest level of school Bachelor's degree (e.g., BA, AB, 05/22/2021 you have completed or the highest BS) degree you have received? 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 - 09/01/2021 3:30 PM CDT SUBJECTIVE CHIEF COMPLAINT/REASON FOR VISIT OB check. HISTORY OF PRESENT ILLNESS Shaye Choe is a 31 y.o. female who presents today for routine care at 19w6d gestation by LMP of 04/15/2021. She states to be doing well overall. No bleeding. No contractions. We talked briefly about her weight gain. She states that she is eating healthy and exercising every day. There are no concerns at this time. MEDICATIONS, ALLERGIES, MEDICAL/SOCIAL/FAMILY HISTORY REVIEWED. REVIEW OF SYSTEMS Please see HPI for pertinent positives, otherwise rest of ROS negative. OBJECTIVE VITAL SIGNS Vitals: 09/01/21 1513 BP: (!) 108/48 Pulse: 65 Weight: 92.3 kg Body mass index is 30.84 kg/m??. PHYSICAL EXAMINATION General: Pleasant female in no acute distress. Abdomen: Soft, nontender, gravid. heart tones were picked up at 135 bpm. Uterus measures 20 cm. Extremities: No extremity edema. ASSESSMENT / PLAN #1 Supervision of normal single intrauterine at 19w6d gestation, second trimester and doing well, Estimated Date of Delivery: 01/20/22 by LMP of 04/15/2021, Blood type A positive, Rubella immune, Syphilis negative x1 PLAN: US was completed yesterday and was reviewed with the patient. Routine counseling is given today. Patient will continue routine care. She will followup in 4 weeks for her next OBvisit. The patient will call with any questions or concerns. This document serves as a record of services personally performed by Dr. Moni Gross. It was created on their behalf by Trish Montero, a trained medical driver. The creation of this record is basedon the scribe remotely listening to the visit and the provider's statements to them. This document has been checked and approved by the attending provider. documented in this encounter Plan of Treatment Scheduled Referrals Name Type Priority Associated Diagnoses Order S [facility] Family Medicine Outpatient Referral Routine Expec axel: office visit 10/01/2021 (clinic) (Approximate), Expires: 12/01/2022 documented as of this encounter Visit Diagnoses Diagnosis Examination Other Normal Pregna ncy Second Trimester (HCC) - Primary documented in this encounter Additional Health Concerns Assessment Noted Time PHQ-9 Depression Total Score: 1 06/11/2021 10:22 AM CS T documented as of this encounter Care Teams Sole Cementer Relationship Specialty Start Date End Date Unassigned, Pcp PCP - General Family Medicine 06/11/21 documented as of this encounter
--- OUTSIDE RECORDS SUMMARY | 2021-12-29 21:56 | XMS_ITS | Encounter Summary ---
:1990 Author Organization [facility] Address [address] [place] [address] Care Team Providers Name Role Phone Unavailable Primary Care Provider Unavailable Reason for Referral Specialty Diagnoses / Procedures Referred By Contact Refer red To Contact [facility] [address] [place] [address] Referral ID Status Reason Start Date Expiration Date Visits Requ ested Visits Authorized Reason for Visit Appointment Request (Routine) - Closed Specialty Diagnoses / Procedures Referred By Contact Refer maribell To Contact Family Medicine Referral ID Status Reason Start Date Expiration Date Visits Requ ested Visits Authorized [id number] Closed 08/15/2020 08/15/2021 1 1 Encounter Details Date Type Department Care Team Description 08/21/2020 Immunization Department of [facility] er For COVID-19 Medicine, [facility] Vaccine Immunization [facility] (Prim hue Dx) [address] [address] [facility] [phone] Social History Tobacco Use Types Packs/Day Years [...] or relatives? How often do you attend adventist or Never 2020 hinduism services? Do you belong to any clubs or No 05/22/2021 organizations such as adventist groups, unions, fraternal or athletic groups, or [...] or slept in a long-term (including now)? 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
--- OUTSIDE RECORDS SUMMARY | 2021-12-29 21:56 | XMS_ITS | Encounter Summary ---
:1990 Author Organization [facility] Address [address] [place] [address] Care Team Providers Name Role Phone Unassigned, Pcp Primary Care Provider Unavailable Reason for Referral Outpatient (Routine) - Closed Specialty Diagnoses / Procedures Referred By Contact Refer red To Contact Family Moni Arroyo M. D. [facility] Region [address] [place] [address] Referral ID Status Reason Start Date Expiration Date Visits Requ ested Visits Authorized [id number] Closed 08/10/2021 08/10/2022 1 1 Reason for Visit Reason Comments Routine Visit 16 5/7 weeks no concerns Appointment Request (Routine) - Closed Specialty Diagnoses / Procedures Referred By Contact Refer red To Contact Family Medicine Referral ID Status Reason Start Date Expiration Date Visits Requ ested Visits Authorized [id number] Closed 07/13/2021 07/13/2022 1 1 Encounter Details Date Type Department Care Team Description 08/10/2021 Routine Department of Moni Wallis Medicine, Aria Barr M.D. Other Normal Clinic, in [facility] [address] Second [place], [place] Trimester (Primary [address] [address] Dx) [place], [place] [phone] [address] (Work) [phone] Social History Tobacco Use Types Packs/Day Years [...] or relatives? How often do you attend taoism or Never 2020 congregational services? Do you belong to any clubs or No 05/22/2021 organizations such as taoism groups, unions, fraternal or athletic groups, or [...] place to sleep or slept in a longterm (including now)? Education Answer Date Recorded What is the highest level of school Bachelor's degree (e.g., BA, AB, 05/22/2021 you have completed or the highest BS) degree you have received? Sex Assigned at Date Recorded Female 05/18/2021 7:19 PM BLOCK HAND documented as of this encounter Last Filed Vital Signs Vital Sign Reading Time Taken Comments Blood Pressure 126/73 08/10/2021 7:36 AM CDT Pulse 61 08/10/2021 7:36 AM CDT Temperature 36.5 ??C (97.7 ??F) 08/10/2021 7:36 AM CDT Respiratory Rate - - Oxygen Saturation - - Inhaled Oxygen Concentration - - Weight 87.9 kg (193 lb 12.6 oz) 08/10/2021 7:36 AM CDT Height - - Body Mass Index 29.37 07/13/2021 11:32 AM BLOCK HAND documented in this encounter Progress Notes Moni Gross M.D. - 08/10/2021 7:45 AM CDT SUBJECTIVE CHIEF COMPLAINT/REASON FOR VISIT OB check HISTORY OF PRESENT ILLNESS Shaye Choe is a 31 y.o. female who presents today for routine care at 16w5d gestation for routine care. Denies any bleeding or fluid leakage. Denies significant pain or swelling. Denies any other concerns. History reviewed. Current Medications & Allergies reviewed. REVIEW OF SYSTEMS Please see HPI for pertinent positives, otherwise rest of ROS negative. OBJECTIVE VITAL SIGNS BP 126/73 Pulse 61 Temp 36.5 ??C (Temporal) Wt 87.9 kg LMP 04/15/2021 BMI 29.37 kg/m?? PHYSICAL EXAMINATION General: Well appearing and in no acute distress. Abdomen: heart tones detected by handheld doppler at 140 bpm. Mental: Patient is alert and oriented x3. Does not appear depressed or anxious. Mood is good with appropriate affect. Speech and thought content and pattern are within normal limits. Neuro: Grossly nonfocal. Skin: Normal color. Moist mucous membranes. No worrisome rashes on exposed skin. Extremities: No significant edema. ASSESSMENT / PLAN #1 visit. 31 y.o., female at 16w5d weeks??? estimated gestational age, with due date [...] followup for her next routine visit in 3 weeks. She will call Labor & Delivery with any questions or concerns about the need to come in earlier for any new symptoms. Moni Gross M.D. documented in this encounter Plan of Treatment Scheduled Referrals Name Type Priority Associated Diagnoses Order S [facility] Outpatient Referral Routine Expec axel: office visit 08/31/2021 (clinic) (Approximate), Expires: 11/10/2022 documented as of this encounter Results US OB Anatomy Crump (08/31/2021 8:48 AM CDT) Anatomical Region Laterality Modality Body, Ultrasound OB RST LOS, Ultrasound ARZ LOS N/A Ultrasound Specimen (Source) Anatomical Collection Method Collection Time Re ceived Time Location / / Volume Laterality 08/31/2021 12:04 PM CDT Impressions 08/31/2021 12:06 PM CDT Normal anatomic survey. Narrative 08/31/2021 12:06 PM CDT EXAM: US OB ANATOMY CRUMP Physician: ??Dr. Gross FINDINGS: Established Gestational age: 19 w 5 d, E DD: ??01/20/2022 Presentation: Variable Placenta Location: Posterior Placental Relationship to Internal Os: N ormal, no previa Amniotic Fluid: Subjectively normal in v olume Age by current ultrasound measurements: 20 w 0 d Estimated weight: 332 g. EFW %: ?? 66.4 % heart rate: 135 SURVEY: Motion: Normal. 4Chamber Heart: Normal. RVOT/LVOT: Normal. Cardiac Situs: Normal. Diaphragm: Normal. Stomach: Normal. Kidneys: Normal. Bladder: Normal. Spinal Column: Normal. Lateral Ventricles, Choroid: Normal. Cavum Septum: Normal. Cisterna Magna: Normal. Cerebellum: Normal. Nuchal Fold Thickness: Normal. Three Vessel Umbilical Cord: Normal. Cord Insertion: Normal. Placental Cord Insertion: Normal. 4 Extremities: Normal. Upper Lip and Facial Profile: Normal. 3 Vessel View (optional): Normal. Orbits (optional): Normal. BIOMETRIC PARAMETERS: ?? BPD: 19 w 6 d ??57.2 % HC: 20 w 0 d ??59.4 % AC: 20 w 2 d ??62.0 % FL: 20 w 0 d ??51.8 % HC/AC ratio: ??1.17 Uterus: No unexpected findings. Right ovary/adnexa: Ovary obscured, othe rwise clear. Left ovary/adnexa: Ovary obscured, other garcia clear. Cervix: Normal at 4.4 cm Unless otherwise indicated, the kebede rvey includes: Four-chamber heart, RVOT and LVOT, diaphragm, stomach (presence and situs), kidneys, b ladder, spine (cervical, thoracic, lumbar, and sacral spine), cerebral ventricles and choroid plexus, cavum septum pellucidum, cisterna magna, cerebellum, three vessel umbilical cord, umbilical c ord insertion, four extremities, upper lip, facial profile. Procedure Note Mikael Washington M.D. - 08/31/2021Formatt ing of this note might be different from the original. EXAM: US OB ANATOMY CRUMP Physician: Dr. Gross FINDINGS: Established Gestational age: 19 w 5 d, E Presentation: Variable Placenta Location: Posterior Placental Relationship to Internal Os: N ormal, no previa Amniotic Fluid: Subjectively normal in v olume Age by current ultrasound measurements: 20 w 0 d Estimated weight: 332 g. EFW %: 66 .4 % heart rate: 135 SURVEY: Motion: Normal. 4Chamber Heart: Normal. RVOT/LVOT: Normal. Cardiac Situs: Normal. Diaphragm: Normal. Stomach: Normal. Kidneys: Normal. Bladder: Normal. Spinal Column: Normal. Lateral Ventricles, Choroid: Normal. Cavum Septum: Normal. Cisterna Magna: Normal. Cerebellum: Normal. Nuchal Fold Thickness: Normal. Three Vessel Umbilical Cord: Normal. Cord Insertion: Normal. Placental Cord Insertion: Normal. 4 Extremities: Normal. Upper Lip and Facial Profile: Normal. 3 Vessel View (optional): Normal. Orbits (optional): Normal. BIOMETRIC PARAMETERS: BPD: 19 w 6 d 57.2 % HC: 20 w 0 d 59.4 % AC: 20 w 2 d 62.0 % FL: 20 w 0 d 51.8 % HC/AC ratio: 1.17 Uterus: No unexpected findings. Right ovary/adnexa: Ovary obscured, othe rwise clear. Left ovary/adnexa: Ovary obscured, other garcia clear. Cervix: Normal at 4.4 cm Unless otherwise indicated, the kebede rvey includes: Four-chamber heart, RVOT and LVOT, diaphragm, stomach (presence and situs), kidneys, b ladder, spine (cervical, thoracic, lumbar, and sacral spine), cerebral ventricles and choroid plexus, cavum septum pellucidum, cisterna magna, cerebellum, three vessel umbilical cord, umbilical c ord insertion, four extremities, upper lip, facial profile. IMPRESSION: Normal anatomic survey. Moni E Wallner M.D. IMG OB US PROCEDURES documented in this encounter Visit Diagnoses Diagnosis Examination Other Normal Pregna ncy Second Trimester (HCC) - Primary Examination Other Normal Pregna ncy Second Trimester (HCC) documented in this encounter Additional Health Concerns Assessment Noted Time PHQ-9 Depression Total Score: 1 06/11/2021 10:22 AM CS T documented as of this encounter Care Teams Wire Dropper Relationship Specialty Start Date End Date Unassigned, Pcp PCP - General Family Medicine 06/11/21 documented as of this encounter
--- OUTSIDE RECORDS SUMMARY | 2021-12-29 21:56 | XMS_ITS | Encounter Summary ---
:1990 Author Organization [facility] Address [address] [place] [address] Care Team Providers Name Role Phone Unassigned, Pcp Primary Care Provider Unavailable Encounter Details Date Type Department Care Team Description 06/11/2021 Hospital Encounter Department of Moni Gross For Laboratory Medicine Liz Barr Supervision Of Other in [place], [address] Normal [place], [place] Unspecified [address] [address] Trimester [place], [place] [phone] [address] (Work) [phone] Social History Tobacco Use Types Packs/Day Years [...] or relatives? How often do you attend anabaptism or Never 2020 hindu services? Do you belong to any clubs or No 05/22/2021 organizations such as anabaptism groups, unions, fraternal or athletic groups, or [...] place to sleep or slept in a retirement (including now)? Education Answer Date Recorded What is the highest level of school Bachelor's degree (e.g., BA, AB, 05/22/2021 you have completed or the highest BS) degree you have received? Sex Assigned at Date Recorded Female 05/18/2021 7:19 PM BREWERY REPRESENTATIVE documented as of this encounter Medications at Time of Discharge Medication Sig Dispensed Refills Start Date End Date vits96/iron Take 2 tablets by 0 fum/folic ( mouth daily. vitamin-ferrous fumarate-FA) 27 mg iron- 800 mcg per tablet documented as of this encounter Plan of Treatment Not on filedocumented as of this encounter Procedures Procedure Name Priority Date/Time Associated Diagnosis Comme nts URINALYSIS WITH Routine 06/11/2021 9:20 AM Encounter For Resul ts for this MICROSCOPIC IF BREWERY REPRESENTATIVE Supervision Of Other proce dure are in INDICATED, U Normal the results Unspecified section. Trimester NE URINALYSIS AUTO Routine 06/11/2021 9:20 AM Res ults for this WO MICRO BREWERY REPRESENTATIVE procedure are i n the results section. BACTERIAL CULTURE, Routine 06/11/2021 9:20 AM Encounter For Re sults for this AEROBIC + SUSC, BREWERY REPRESENTATIVE Supervision Of Other proc edure are in URINE Normal the results Unspecified section. Trimester documented in this encounter Results (ABNORMAL) Microscopic Automated (06/11/2021 9:20 AM BREWERY REPRESENTATIVE) Analysis Performed At Patho logist Time Signature White Blood 11-20 (A) /hpf 06/11/2021 [place] Cells 9:38 AM BREWERY REPRESENTATIVE Comment: ----REFERENCE VALUE---- Males: 0-3 Females: 0-10 Unknown: 0-10 Red Blood Cells 3-10 (A) 0 - 2 /hpf 06/11/2021 9:38 AM BREWERY REPRESENTATIVE [facility] Dysmorphic Red Blood Cells <=25 <=25 % 06/11/2021 9: 38 AM BREWERY REPRESENTATIVE [facility] Hyaline Casts 1-3 /lpf 06/11/2021 9:38 AM BREWERY REPRESENTATIVE OWA T Squamous Cells 11-20 /hpf 06/11/2021 9:38 AM BREWERY REPRESENTATIVE [place] Bacteria Present (A) None Seen 06/11/2021 9:38 AM BREWERY REPRESENTATIVE [facility] Specimen Anatomical Collection Method Collection Time Receive d Time (Source) Location / / Volume Laterality Urine 06/11/2021 9:20 AM 9:27 BREWERY REPRESENTATIVE AM BREWERY REPRESENTATIVE Moni Gross M.D. LAB URINE ORDERABLES Performing Organization Address City/[facility]/ZIP [facility] Ph[place] [facility]- [address] [place] [address] [facility] [address] System in [place] [address] (ABNORMAL) Bacterial Culture, Aerobic + Susc, Urine (06/11/2021 9:20 AM BREWERY REPRESENTATIVE) Analysis Performed At Patho logist Time Signature Urine Culture Mixed 06/12/2021 [facility] hilda. (A) 9:12 AM BREWERY REPRESENTATIVE Specimen Anatomical Collection Method Collection Time Receive d Time (Source) Location / / Volume Laterality Urine (Urine, 06/11/2021 9:20 AM 06/11/19 2:06 Midstream) BREWERY REPRESENTATIVE PM BREWERY REPRESENTATIVE Comment: Specimen Source Site: Urine Moni Gross M.D. LAB MICROBIOLOGY - GENERAL O RDERABLES Performing Organization Address City/[facility]/ZIP [facility] Phon [place] Number [facility]- [address] [place] [address] [place] [address] System in [address] (ABNORMAL) Urinalysis with Microscopic if Indicated (06/11/2021 9:20 AM BREWERY REPRESENTATIVE) P athologist Signature Source Urine, 06/11/2021 [place] Urine, Clean 9:33 AM BREWERY REPRESENTATIVE Catch Clarity Cloudy (A) Clear 06/11/2021 [place] 9:33 AM BREWERY REPRESENTATIVE Color Yellow 06/11/2021 [place] 9:33 AM BREWERY REPRESENTATIVE Comment: ----REFERENCE VALUE---- Colorless Yellow Juanita Blood Negative Negative 06/11/2021 9:33 AM BREWERY REPRESENTATIVE [facility] Nitrite Negative Negative 06/11/2021 9:33 AM BREWERY REPRESENTATIVE [facility] Leukocyte Esterase Small (A) Negative 06/11/2021 9:33 AM CS T [place] Protein Negative mg/dL 06/11/2021 9:33 AM BREWERY REPRESENTATIVE [facility] Comment: ----REFERENCE VALUE---- Negative Trace Glucose Negative Negative mg/dL 06/11/2021 9:33 AM BREWERY REPRESENTATIVE OW [facility] Ketone Negative Negative mg/dL 06/11/2021 9:33 AM BREWERY REPRESENTATIVE OW AT Bilirubin Negative Negative 06/11/2021 9:33 AM BREWERY REPRESENTATIVE [place] pH 7.0 5.0 - 8.0 06/11/2021 9:33 AM BREWERY REPRESENTATIVE [place] Specific [place] 1.006 1.001 - 1.035 06/11/2021 9:33 AM BREWERY REPRESENTATIVE [place] Urobilinogen 0.2 0.2 - 1.0 mg/dL 06/11/2021 9:33 AM CS T [place] Specimen Anatomical Collection Method Collection Time Receive d Time (Source) Location / / Volume Laterality Urine (Urine, 06/11/2021 9:20 AM 06/11/19 9:27 Clean Catch) BREWERY REPRESENTATIVE AM BREWERY REPRESENTATIVE Moni Gross M.D. LAB URINE ORDERABLES Performing Organization Address City/State/ZIP Code Phon e Number [facility]- [address] [place] [address] [place] [address] System in [place] [address] documented in this encounter Visit Diagnoses Diagnosis Encounter For Supervision Of Other Veronica l Unspecified Trimester (HCC) documented in this encounter Additional Health Concerns Assessment Noted Time PHQ-9 Depression Total Score: 1 06/11/2021 10:22 AM CS T documented as of this encounter Care Teams Soldering Machine Operator Automatic Relationship Specialty Start Date End Date Unassigned, Pcp PCP - General Family Medicine 06/11/21 documented as of this encounter
--- OUTSIDE RECORDS SUMMARY | 2021-12-29 21:56 | XMS_ITS | Encounter Summary ---
:1990 Author Organization [facility] Address [address] [place] [address] Care Team Providers Name Role Phone Unassigned, Pcp Primary Care Provider Unavailable Encounter Details Date Type Department Care Team Description 10/29/2021 Hospital Encounter Department of Moni Gross Laboratory Medicine Liz Barr Other Normal in [place], [address] Second [place], [place] Trimester (HCC) [address] [address] [place], [place] [phone] [address] (Work) [phone] Social History Tobacco Use Types Packs/Day Years [...] or relatives? How often do you attend buddhist or Never 2020 mormonism services? 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 vitamin-ferrous fumarate-FA) 27 mg iron- 800 mcg per tablet documented as of this encounter Plan of Treatment Not on filedocumented as of this encounter Procedures Procedure Name Priority Date/Time Associated Diagnosis Comme nts GLUCOSE RHODA, 1HR, Routine 10/29/2021 8:28 AM Examination Prena ron Results for this S/P CDT Other Normal procedure are i n Second the results Trimester (HCC) section. HEMOGLOBIN, B Routine 10/29/2021 8:28 AM Examination Results for this CDT Other Normal procedure are i n Second the results Trimester (HCC) section. documented in this encounter Results Hemoglobin (10/29/2021 8:28 AM CDT) P athologist Signature Hemoglobin 13.1 11.6 - 15.0 10/29/2021 OW[place] g/dL 8:48 AM CDT Specimen Anatomical Collection Method Collection Time Receive d Time (Source) Location / / Volume Laterality Blood (Blood, 10/29/2021 8:28 AM 10/30/19 8:45 Venous) CDT AM CDT Moni Gross M.D. LAB BLOOD ADD-ON Performing Organization Address City/State/ZIP Code Phon e Number [facility]- [address] [place] [address] [place] [address] System in [place] [address] Glucose Tolerance Test, 1 hour (10/29/2021 [...] Organization Address City/State/ZIP Code Phon e Number [facility]- [address] [place] [address] [place] [address] System in [place] [address] [facility] documented in this encounter Visit Diagnoses Diagnosis Examination Other Normal Pregna ncy Second Trimester (HCC) documented in this encounter Additional Health Concerns Assessment Noted Time PHQ-9 Depression Total Score: 1 06/11/2021 10:22 AM CS T documented as of this encounter Care Teams Customer Relationship Specialist Relationship Specialty Start Date End Date Unassigned, Pcp PCP - General Family Medicine 06/11/21 documented as of this encounter
--- OUTSIDE RECORDS SUMMARY | 2021-12-29 21:56 | XMS_ITS | Clinical Summary ---
:1990 Author Organization [facility] Address [address] [place] [address] Care Team Providers Name Role Phone Unassigned, Pcp Primary Care Provider Unavailable Source Comments Patient records contain information from all sites at [facility]. For routine questions regarding patient records, call [phone] during business hours, M-F 8:00 AM - 5:00 PM Central Time. Record requests for emergency care only can be directed to [phone] at any time.[facility] Allergies Active Allergy Reactions Severity Noted Date Comments Neomycin-Polymyxin Edema, Other (see comments), 2013 B-Dexameth Itching Medications Medication Sig Dispensed Refills Start Date End Date Status vits96/iron Take 2 tablets by 0 Active fum/folic ( mouth daily. vitamin-ferrous fumarate-FA) 27 mg iron- 800 mcg per tablet Encounters Date Type Specialty Care Team Description 10/29/2021 Routine Family Medicine Moni Gross Liz Barr Other Normal Third Trimester (HCC) (Primary Dx) 10/29/2021 Hospital Encounter Laboratory Medicine Moni Gross Liz Barr Other Normal Secon d Trimester (HCC) 09/28/2021 Routine Family Medicine Moni Gross Liz Barr Other Normal Secon d Trimester (HCC) (Primary Dx) from Last 3 Months Immunizations Name Administration Dates Next Due 4vHPV (discontinued) 07/31/2008, 03/26/2008, 01/05/2008 DTP 09/12/1997, 09/16/1993, 01/19/1993, 1992, 1992, 1992 DTP / Hib 09/16/1993, 01/19/1993, 1992 DTaP (Infanrix, Tripedia) 09/12/1997 H1N1 Inj 02/21/2020 HepA Adult 09/15/2015 HepB Pediatric/Adolescent 12/21/1996, 07/23/1996, 06/22/1996 Hib (HbOC) (discontinued) 1992, 1992 Hib (PRP-D) (discontinued) 01/19/1993, 1992, 3, 1992 IPV 09/12/1997, 06/22/1996, 1992, 1992 Influenza (IM) Preservative Free 03/05/2011 Influenza TIV (IM) 03/22/2013, 02/02/2012, 03/05/2011 Influenza, Injectable, Quadrivalent 02/21/2020 Influenza, Seasonal, Injectable 03/22/2013 MMR 06/13/2002, 09/16/1993, 1992 OPV 09/12/1997, 06/22/1993, 1992, 1992 SARS-COV-2 (COVID-19) - PFIZER (12 08/21/2020 years or older) Td Preservative Free (TENIVAC, 04/09/2015 DECAVAC) Tdap 10/29/2021, 12/29/2004 TyVi (inj) 09/15/2015 influenza vaccine quad 04/05/2018, 03/03/2015, 03/14/2014 (FLUZONE/FLUARIX) (6 months and older)(PF) Family History Medical History Relation Name Comments ADD / ADHD Brother Learning disabilities Brother Miscarriages / Stillbirths Mother Eczema Son Oliverio Rashes / Skin problems Son Oliveiro Relation Name Status Comments Brother Mother Son Oliverio Alive Social History Tobacco Use Types Packs/Day Years [...] or relatives? How often do you attend sabianist or Never 2020 confucianism services? Do you belong to any clubs or No 05/22/2021 organizations such as sabianist groups, unions, fraHazelTree or athletic groups, or school groups? How [...] place to sleep or slept in a [place] facility (including now)? Education Answer Date Recorded What is the highest level of school Bachelor's degree (e.g., BA, AB, 05/22/2021 you have completed or the highest BS) degree you have received? 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 Last Filed Vital Signs Vital Sign Reading Time Taken Comments Blood Pressure 116/74 10/29/2021 7:37 AM CDT Pulse 65 09/01/2021 3:13 PM CDT Temperature 36.5 ??C (97.7 ??F) 08/10/2021 7:36 AM CDT Respiratory Rate 73 10/29/2021 7:37 AM CDT Oxygen Saturation - - Inhaled Oxygen Concentration - - Weight 98.8 kg (217 lb 13 oz) 10/29/2021 7:37 AM CDT Height 173 cm (5' 8.11) 07/13/2021 11:32 AM CHURCH COMMUNICATIONS ADMINISTRATOR Body Mass Index 33.01 07/13/2021 11:32 AM CHURCH COMMUNICATIONS ADMINISTRATOR Plan of Treatment Health Maintenance Due Date Last Done Comments Hepatitis C Screening 1990 COVID-19 Vaccine (2 - 09/11/2020 08/21/2020 Pfizer series) Cervical Cancer Screening 02/09/2022 02/09/2019 (Performed elsewhere) Influenza Vaccine (#1) 2022 02/21/2020, 04/05/2018, 03/03/2015, Additional history exists DTaP,Tdap,and Td Vaccines 10/30/2031 10/29/2021, 04/09/2015 , (9 - Td or Tdap) 12/29/2004, Additional history exists Hepatitis B Vaccines Completed 12/21/1996, 07/23/1996, 06/22/1996 Depression Screening Completed 06/11/2021 (Annual PHQ-2) HIV Screening Completed 06/11/2021 Pneumococcal vaccine (0-64 Aged Out No lo nger eligible years) based on patient 's age to complete this topic Procedures Procedure Name Priority Date/Time Associated Diagnosis Comme nts HEMOGLOBIN, B Routine 10/29/2021 8:28 AM Examination Results for this CDT Other Normal procedure are i n Second the results Trimester (HCC) section. GLUCOSE RHODA, 1HR, Routine 10/29/2021 8:28 AM Examination Prena ron Results for this S/P CDT Other Normal procedure are i n Second the results Trimester (HCC) section. from Last 3 Months Results Glucose Tolerance Test, 1 hour (10/29/2021 8:28 AM CDT) athologist Signature Glucose Rhoda, 1 79 <140 mg/dL 10/29/2021 [place] Hr, P 9:11 AM CDT Specimen Anatomical Collection Method Collection Time Receive d Time (Source) Location / / Volume Laterality Blood (Blood, 10/29/2021 8:28 AM 10/30/19 8:45 Venous) CDT AM CDT Moni Gross M.D. LAB BLOOD NON ADD-ON Performing Organization Address City/State/ZIP Code Phon e Number [facility]- [address] [place] [address] [place] [address] System in [place] [address] Hemoglobin (10/29/2021 8:28 AM CDT) athologist Signature Hemoglobin 13.1 11.6 - 15.0 10/29/2021 [place] g/dL 8:48 AM CDT Specimen Anatomical Collection Method Collection Time Receive d Time (Source) Location / / Volume Laterality Blood (Blood, 10/29/2021 8:28 AM 10/30/19 8:45 Venous) CDT AM CDT Moni Gross M.D. LAB BLOOD ADD-ON Performing Organization Address City/State/ZIP Code Phon e Number [facility]- [address] [place] [address] [place] [address] System in [place] [address] from Last 3 Months Insurance Payer Benefit Plan / Subscriber ID Effective Dates Phone Addre ss Type Group [facility] [place] [id number] 2021-Presemi [phone] [address] [address] PPO [facility] [address] [place] [address] Care Teams Design Chief Relationship Specialty Start Date End Date Unassigned, Pcp PCP - General Family Medicine 06/11/21
--- OUTSIDE RECORDS SUMMARY | 2021-12-29 21:56 | XMS_ITS | Encounter Summary ---
:1990 Author Organization [facility] Address [address] [place] [address] Care Team Providers Name Role Phone Unassigned, Pcp Primary Care Provider Unavailable Reason for Referral Outpatient (Routine) - Authorized Specialty Diagnoses / Procedures Referred By Contact Refer red To Contact Moni Arias M. D. [facility] Region [address] [place] [address] Referral ID Status Reason Start Date Expiration Date Visits V isits Requested Authorized [id number] Authorized 10/29/2021 10/29/2022 1 1 Reason for Visit Reason Comments Routine Visit 28 wk 1 day - no concerns Outpatient (Routine) - Closed Specialty Diagnoses / Procedures Referred By Contact Refer red To Contact Moni Arias M. D. [facility] Region [address] [place] [address] Referral ID Status Reason Start Date Expiration Date Visits Requ ested Visits Authorized [id number] Closed 09/28/2021 09/28/2022 1 1 Encounter Details Date Type Department Care Team Description 10/29/2021 Routine Department of Moni Wallis Medicine, Aria Barr M.D. Other Normal Clinic, in [place], [address] [place], [place] Trimester (HCC) [address] [address] (Primary Dx) [place], [place] [phone] [address] (Work) [phone] Social History Tobacco Use Types Packs/Day Years [...] or relatives? How often do you attend catholic or Never 2020 yarsani services? Do you belong to any clubs or No 05/22/2021 organizations such as catholic groups, unions, fraternal or athletic groups, [...] at Date Recorded Female 05/18/2021 7:19 PM CASH ON DELIVERY CLERK documented as of this encounter Last Filed Vital Signs Vital Sign Reading Time Taken Comments Blood Pressure 116/74 10/29/2021 7:37 AM CDT Pulse - - Temperature - - Respiratory Rate 73 10/29/2021 7:37 AM CDT Oxygen Saturation - - Inhaled Oxygen Concentration - - Weight 98.8 kg (217 lb 13 oz) 10/29/2021 7:37 AM CDT Height - - Body Mass Index 33.01 07/13/2021 11:32 AM CASH ON DELIVERY CLERK documented in this encounter Progress Notes Moni Gross M.D. - 10/29/2021 7:45 AM CDT SUBJECTIVE CHIEF COMPLAINT/REASON FOR VISIT OB check HISTORY OF PRESENT ILLNESS Shaye Rutledge is a 31 y.o. female who presents today for routine care at 28w1d gestation for routine care. Denies any contractions, bleeding or fluid leakage. Denies significant pain or swelling. Baby has been active. Denies headache, blurred vision or right upper quadrant pain. Is having a few episodes of feeling light headed. Denies any other concerns. History reviewed. Current Medications & Allergies reviewed. REVIEW OF SYSTEMS Please see HPI for pertinent positives, otherwise rest of ROS negative. OBJECTIVE VITAL SIGNS BP 116/74 Resp (!) 73 Wt 98.8 kg LMP 04/15/2021 BMI 33.01 kg/m?? PHYSICAL EXAMINATION General: Well appearing and in no acute distress. Abdomen: Soft, nontender, gravid. heart tones were picked up at 160 bpm. Uterus measures 28.5 cm. Mental: Patient is alert and oriented x3. Does not appear depressed or anxious. Mood is good with appropriate affect. Speech and thought content and pattern are within normal limits. Cervix: Not evaluated. Skin: Normal color. No worrisome rashes on exposed skin. Extremities: No significant edema. ASSESSMENT / PLAN #1 visit. 31 y.o., female at 28w1d weeks??? estimated gestational age, with due date of Estimated Date of Delivery: 01/20/22 with blood type: ABO Group Date Value Ref Range Status 06/11/2021 A Final Rh Type Date Value Ref Range Status 06/11/2021 POS Final PLAN: Routine counseling is given today. Patient will continue routine care. Discussed routine instructions and signs and symptoms to warrant earlier evaluation. Tdap was given. Passed 1 hour glucose test. #2 Follow up PLAN: She will followup for her next routine visit in 4 weeks. She will call Labor & Delivery with any questions or concerns about the need to come in earlier for any new symptoms. Moni Gross M.D. documented in this encounter Plan of Treatment Scheduled Referrals Name Type Priority Associated Diagnoses Order S [facility] Medicine Outpatient Referral Routine Expec axel: office visit 11/28/2021 (clinic) (Approximate), Expires: 01/29/2023 documented as of this encounter Visit Diagnoses Diagnosis Examination Other Normal Pregna ncy Third Trimester (HCC) - Primary documented in this encounter Additional Health Concerns Assessment Noted Time PHQ-9 Depression Total Score: 1 06/11/2021 10:22 AM CS T documented as of this encounter Care Teams Marine Cargo Surveyor Relationship Specialty Start Date End Date Unassigned, Pcp PCP - General Family Medicine 06/11/21 documented as of this encounter
--- OUTSIDE RECORDS SUMMARY | 2021-12-29 21:56 | XMS_ITS | Encounter Summary ---
:1990 Author Organization [facility] Address [address] [place] [address] Care Team Providers Name Role Phone Unassigned, Pcp Primary Care Provider Unavailable Encounter Details Date Type Department Care Team Description 08/31/2021 Ancillary Procedure Department of Moni Gross Obstetrics and E MIvory Other Normal Gynecology in [address] [place], [place] Trimester [address] [address] [place], [place] [phone] [address] (Work) [phone] Social History Tobacco Use Types Packs/Day Years [...] or relatives? How often do you attend episcopalian or Never 2020 jew services? Do you belong to any clubs or No 05/22/2021 organizations such as episcopalian groups, unions, fraternal or athletic groups, or [...] place to sleep or slept in a fpc (including now)? Education Answer Date Recorded What is the highest level of school Bachelor's degree (e.g., BA, AB, 05/22/2021 you have completed or the highest BS) degree you have received? 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 documented in this encounter Results US OB Anatomy Crump [...] upper lip, facial profile. Procedure Note Mikael Washintgon M.D. - 08/31/2021Formatt ing of this note [...] facial profile. IMPRESSION: Normal anatomic survey. Moni Gross M.D. [facility] OB US PROCEDURES documented in this encounter Visit Diagnoses Diagnosis Examination Other Normal Pregna ncy Second Trimester (HCC) documented in this encounter Additional Health Concerns Assessment Noted Time PHQ-9 Depression Total Score: 1 06/11/2021 10:22 AM CS T documented as of this encounter Care Teams Specialty Sales Consultant Relationship Specialty Start Date End Date Unassigned, Pcp PCP - General Family Medicine 06/11/21 documented as of this encounter
== END 2021-12-22 11:48 | disposition home or self-care (01) ==
PROVIDERS: PCP Family Medicine; Visit Provider Advanced Practice Midwife
DX: Z34.83 Encounter for supervision of other normal pregnancy, third trimester (principal); Z3A.35 35 weeks gestation of pregnancy
CPT/HCPCS: 87081; 87653

== ENCOUNTER 2022-01-05 10:53 | Outpatient (CLI) | payer BC, SELFPAY ==
--- OUTSIDE RECORDS SUMMARY | 2022-01-05 10:55 | XMS_ITS | Encounter Summary ---
:1990 Author Organization [facility] Address [address] [place] [address] Care Team Providers Name Role Phone Unassigned, Pcp Primary Care Provider Unavailable Reason for Referral Outpatient (Routine) - Closed Specialty Diagnoses / Procedures Referred By Contact Refer red To Contact Moni Arias M. D. [facility] Region [address] [place] [address] Referral ID Status Reason Start Date Expiration Date Visits Requ ested Visits Authorized [id number] Closed 09/28/2021 09/28/2022 1 1 Reason for Visit Reason Comments Routine Visit No concerns Outpatient (Routine) - Closed Specialty Diagnoses / Procedures Referred By Contact Refer red To Contact Moni Arias M. D. [facility] Region [address] [place] [address] Referral ID Status Reason Start Date Expiration Date Visits Requ ested Visits Authorized [id number] Closed 09/01/2021 09/01/2022 1 1 Encounter Details Date Type Department Care Team Description 09/28/2021 Routine Department of Moni Wallis MedicineAria M.D. Other Normal Clinic, in [place], [address] [place], [place] Trimester (HCC) [address] [address] (Primary Dx) [place], [place] [phone] [address] (Work) [phone] Social History Tobacco Use Types Packs/Day Years [...] or relatives? How often do you attend zoroastrianism or Never 2020 mosque services? Do you belong to any clubs or No 05/22/2021 organizations such as zoroastrianism groups, unions, fraternal or athletic groups, or [...] place to sleep or slept in a senior care (including now)? Education Answer Date Recorded What is the highest level of school Bachelor's degree (e.g., BA, AB, 05/22/2021 you have completed or the highest BS) degree you have received? Sex Assigned at Date Recorded Female 05/18/2021 7:19 PM BRUSH AND BROOM CLIPPER documented as of this encounter Last Filed Vital Signs Vital Sign Reading Time Taken Comments Blood Pressure 117/73 09/28/2021 7:08 AM CDT Pulse - - Temperature - - Respiratory Rate - - Oxygen Saturation - - Inhaled Oxygen Concentration - - Weight 95.7 kg (210 lb 15.7 oz) 09/28/2021 7:08 AM CDT Height - - Body Mass Index 31.98 07/13/2021 11:32 AM BRUSH AND BROOM CLIPPER documented in this encounter Progress Notes Moni [...] Name Type Priority Associated Diagnoses Order S [facility] Medicine Outpatient Referral Routine Expec axel: office [...] Organization Address City/State/ZIP Code Phon e Number [facility]- [address] [place] [address] [place] [address] System in [place] [address] Glucose Tolerance Test, 1 [...] Organization Address City/State/ZIP Code Phon e Number [facility]- [address] [place] [address] [place] [address] System in [place] [address] documented in this encounter Visit Diagnoses Diagnosis Examination Other Normal Pregna ncy Second Trimester (HCC) - Primary documented in this encounter Additional Health Concerns Assessment Noted Time PHQ-9 Depression Total Score: 1 06/11/2021 10:22 AM CS T documented as of this encounter Care Teams Stripper And Printer Relationship Specialty Start Date End Date Unassigned, Pcp PCP - General Family Medicine 06/11/21 documented as of this encounter
--- OUTSIDE RECORDS SUMMARY | 2022-01-05 10:55 | XMS_ITS | Encounter Summary ---
:1990 Author Organization [facility] Address [address] [place] [address] Care Team Providers Name Role Phone Unassigned, Pcp Primary Care Provider Unavailable Encounter Details Date Type Department Care Team Description 10/29/2021 Hospital Encounter Department of Moni Gross Laboratory Medicine Liz Barr Other Normal in [place], [address] [place], [place] Trimester (HCC) [address] [address] [place], [place] [phone] (Work) [phone] Social History Tobacco Use Types Packs/Day Years [...] or relatives? How often do you attend mormonism or Never 2020 faith services? Do you belong to any clubs or No 05/22/2021 organizations such as mormonism groups, unions, fraternal or athletic groups, or [...] or slept in a half-way (including now)? Education Answer Date Recorded What is the highest level of school Bachelor's degree (e.g., BA, AB, 05/22/2021 you have completed or the highest BS) degree you have received? 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 documented as of this encounter Medications at [...] Organization Address City/State/ZIP Code Phon e Number [facility]- [address] [place] [address] [place] [address] System in [place] [address] Glucose Tolerance Test, 1 hour [...] Organization Address City/State/ZIP Code Phon e Number [facility]- [address] [place] [address] [place] [address] System in [place] [address] [facility] documented in this encounter Visit Diagnoses Diagnosis Examination Other Normal Pregna ncy Second Trimester (HCC) documented in this encounter Additional Health Concerns Assessment Noted Time PHQ-9 Depression Total Score: 1 06/11/2021 10:22 AM CS T documented as of this encounter Care Teams Campaign Developer Relationship Specialty Start Date End Date Unassigned, Pcp PCP - General Family Medicine 06/11/21 documented as of this encounter
--- OUTSIDE RECORDS SUMMARY | 2022-01-05 10:55 | XMS_ITS | Clinical Summary ---
:1990 Author Organization [facility] Address [address] [place] [address] Care Team Providers Name Role Phone Unassigned, Pcp Primary Care Provider Unavailable Source Comments Patient records contain information from all sites at [facility]. For routine questions regarding patient records, call [phone] during business hours, M-F 8:00 AM - 5:00 PM Central Time. Record requests for emergency care only can be directed to [phone] at any time.[facility] Allergies Active Allergy Reactions Severity Noted Date [...] 10/29/2021 Hospital Encounter Laboratory Medicine Moni Gross Examination Liz Barr Other Normal [place] Trimester (HCC) from Last 3 Months Immunizations Name Administration [...] Son Oliverio Rashes / Skin problems Son Oliverio Relation Name Status Comments Brother Mother Son [...] or relatives? How often do you attend confucianism or Never 2020 yazidism services? Do you belong to any clubs or No 05/22/2021 organizations such as confucianism groups, unions, fraternal or athletic groups, or [...] at Date Recorded Female 05/18/2021 7:19 PM AUTOMOTIVE CONSULTANT Last Filed Vital Signs Vital Sign Reading [...] 173 cm (5' 8.11) 07/13/2021 11:32 AM AUTOMOTIVE CONSULTANT Body Mass Index 33.01 07/13/2021 11:32 AM AUTOMOTIVE CONSULTANT Plan of Treatment Health Maintenance Due Date [...] Organization Address City/State/ZIP Code Phon e Number [facility]- [address] [place] [address] [facility] [place] [address] System in [place] [address] Hemoglobin (10/29/2021 8:28 AM CDT) P athologist Signature Hemoglobin 13.1 11.6 - 15.0 10/29/2021 [place] g/dL 8:48 AM CDT Specimen Anatomical Collection Method Collection Time Receive d Time (Source) Location / / Volume Laterality Blood (Blood, 10/29/2021 8:28 AM 10/30/19 22 8:45 Venous) CDT AM CDT Moni Gross M.D. LAB BLOOD ADD-ON Performing Organization Address City/State/ZIP Code Phon e Number [facility]- [address] [place] [address] [place] [address] System in [place] [address] from Last 3 Months Insurance Payer Benefit Plan / Subscriber ID Effective Dates Phone Addre ss Type Group [employer] [facility] [place] [id number] 2021-Presen [phone] [address] [address] PPO [facility] [address] [place] [address] Care Teams Sheet Tester Relationship Specialty Start Date End Date Unassigned, Pcp PCP - General Family Medicine 06/11/21
--- OUTSIDE RECORDS SUMMARY | 2022-01-05 10:55 | XMS_ITS | Encounter Summary ---
:1990 Author Organization [facility] Address [address] [place] [address] Care Team Providers Name Role Phone Unassigned, Pcp Primary Care Provider Unavailable Encounter Details Date Type Department Care Team Description 08/31/2021 Ancillary Procedure Department of Moni Gross Obstetrics and E MIvory Other Normal Gynecology in [address] [place], [place] Trimester [address] [address] [place], [place] [phone] (Work) [phone] Social History Tobacco Use Types Packs/Day Years [...] or relatives? How often do you attend episcopal or Never 2020 anglican services? Do you belong to any clubs or No 05/22/2021 organizations such as episcopal groups, unions, fraternal or athletic groups, or [...] at Date Recorded Female 05/18/2021 7:19 PM HOSPITALITY JOB TITLES documented as of this encounter Plan of [...] documented as of this encounter Care Teams Calculus Teacher Relationship Specialty Start Date End Date Unassigned, Pcp PCP - General Family Medicine 06/11/21 documented as of this encounter
--- OUTSIDE RECORDS SUMMARY | 2022-01-05 10:55 | XMS_ITS | Encounter Summary ---
:1990 Author Organization [facility] Address [address] [place] [address] Care Team Providers Name Role Phone Unassigned, Pcp Primary Care Provider Unavailable Reason for Referral Outpatient (Routine) - Authorized Specialty Diagnoses / Procedures Referred By Contact Refer red To Contact Moni Arias M. D. [facility] Region [address] [place] [address] Referral ID Status Reason Start Date Expiration Date Visits V isits Requested Authorized [id number] Authorized 10/29/2021 10/29/2022 1 1 Reason for Visit Reason Comments Routine Visit 28 wk 1 day - no concerns Outpatient (Routine) - Closed Specialty Diagnoses / Procedures Referred By Contact Refer red To Contact Moni Arias M. D. [facility] Region [address] [place] [address] Referral ID Status Reason Start Date Expiration Date Visits Requ ested Visits Authorized [id number] Closed 09/28/2021 09/28/2022 1 1 Encounter Details Date Type Department Care Team Description 10/29/2021 Routine Department of Moni Wallis Medicine, Aria Barr M.D. Other Normal Clinic, in [place], [address] [place], [place] Trimester (HCC) [address] [address] (Primary Dx) [place], [place] [phone] [phone] (Work) [phone] Social History Tobacco Use Types Packs/Day Years [...] do you attend sikhism or Never 2020 yazidism services? Do you [...] place to sleep or slept in a correction (including now)? Education Answer Date Recorded What is the highest level of school Bachelor's degree (e.g., BA, AB, 05/22/2021 you have completed or the highest BS) degree you have received? 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 documented as of this encounter Last Filed [...] Body Mass Index 33.01 07/13/2021 11:32 AM MINI BAR ATTENDANT documented in this encounter Progress Notes Moni [...] Name Type Priority Associated Diagnoses Order S [facility] Medicine Outpatient Referral Routine Expec axel: office visit 11/28/2021 (clinic) (Approximate), Expires: 01/29/2023 documented as of this encounter Visit Diagnoses Diagnosis Examination Other Normal Pregna ncy Third Trimester (HCC) - Primary documented in this encounter Additional Health Concerns Assessment Noted Time PHQ-9 Depression Total Score: 1 06/11/2021 10:22 AM CS T documented as of this encounter Care Teams Customer Relations Coordinator Relationship Specialty Start Date End Date Unassigned, Pcp PCP - General Family Medicine 06/11/21 documented as of this encounter
--- OUTSIDE RECORDS SUMMARY | 2022-01-05 10:55 | XMS_ITS | Encounter Summary ---
:1990 Author Organization [facility] Address [address] [place] [address] Care Team Providers Name Role Phone Unassigned, Pcp Primary Care Provider Unavailable Reason for Referral Outpatient (Routine) - Closed Specialty Diagnoses / Procedures Referred By Contact Refer red To Contact Moni Arias M. D. [facility] Region [address] [place] [address] Referral ID Status Reason Start Date Expiration Date Visits Requ ested Visits Authorized [id number] Closed 09/01/2021 09/01/2022 1 1 Reason for Visit Reason Comments Routine Visit Outpatient (Routine) - Closed Specialty Diagnoses / Procedures Referred By Contact Refer red To Contact Moni Arias M. D. [facility] Region [address] [place] [address] Referral ID Status Reason Start Date Expiration Date Visits Requ ested Visits Authorized [id number] Closed 08/10/2021 08/10/2022 1 1 Encounter Details Date Type Department Care Team Description 09/01/2021 Routine Department of Moni Wallis MedicineAria M.D. Other Normal Clinic, in [facility] [address] [place], [place] Trimester (Primary [address] [address] Dx) [place], [place] [phone] (Work) [phone] Social History Tobacco Use Types Packs/Day Years [...] or relatives? How often do you attend sabianism or Never 2020 confucianist services? Do you belong to any clubs or No 05/22/2021 organizations such as sabianism groups, unions, fraternal or athletic groups, or [...] at Date Recorded Female 05/18/2021 7:19 PM FAMILY PRACTICE MD documented as of this encounter Last Filed [...] Body Mass Index 30.84 07/13/2021 11:32 AM FAMILY PRACTICE MD documented in this encounter Progress Notes Moni [...] behalf by Trish Montero, a trained medical coder. The creation of this record is basedon the scribe remotely listening to the visit and the provider's statements to them. This document has been checked and approved by the attending provider. documented in this encounter Plan of Treatment Scheduled Referrals Name Type Priority Associated Diagnoses Order S [facility] Family Medicine Outpatient Referral Routine Expec axel: office visit 10/01/2021 (clinic) (Approximate), Expires: 12/01/2022 documented as of this encounter Visit Diagnoses Diagnosis Examination Other Normal Pregna ncy Second Trimester (HCC) - Primary documented in this encounter Additional Health Concerns Assessment Noted Time PHQ-9 Depression Total Score: 1 06/11/2021 10:22 AM CS T documented as of this encounter Care Teams Robotics Specialist Relationship Specialty Start Date End Date Unassigned, Pcp PCP - General Family Medicine 06/11/21 documented as of this encounter
--- OUTSIDE RECORDS SUMMARY | 2022-01-05 10:55 | XMS_ITS | Encounter Summary ---
:1990 Author Organization [facility] Address [address] [place] [address] Care Team Providers Name Role Phone Unassigned, Pcp Primary Care Provider Unavailable Reason for Referral Outpatient (Routine) - Closed Specialty Diagnoses / Procedures Referred By Contact Refer red To Contact Family Moni Arroyo M. D. [facility] Region [address] [place] [address] Referral ID Status Reason Start Date Expiration Date Visits Requ ested Visits Authorized [id number] Closed 08/10/2021 08/10/2022 1 1 Reason for Visit Reason Comments Routine Visit 16 5/7 weeks no concerns Appointment Request (Routine) - Closed Specialty Diagnoses / Procedures Referred By Contact Refer red To Contact Family Medicine Referral ID Status Reason Start Date Expiration Date Visits Requ ested Visits Authorized [id number] Closed 07/13/2021 07/13/2022 1 1 Encounter Details Date Type Department Care Team Description 08/10/2021 Routine Department of Moni Wallis Medicine, Aria Barr M.D. Other Normal Clinic, in [facility] [address] [place], [place] Trimester (Primary [address] [address] Dx) [place], [place] [phone] [phone] (Work) [phone] Social History Tobacco Use Types Packs/Day Years [...] or relatives? How often do you attend synagogue or Never 2020 hinduism services? Do you belong to any clubs or No 05/22/2021 organizations such as synagogue groups, unions, fraternal or athletic groups, or [...] place to sleep or slept in a long term (including now)? Education Answer Date Recorded What is the highest level of school Bachelor's degree (e.g., BA, AB, 05/22/2021 you have completed or the highest BS) degree you have received? 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
--- OUTSIDE RECORDS SUMMARY | 2022-01-05 10:55 | XMS_ITS | Encounter Summary ---
:1990 Author Organization [facility] Address [address] [place] [address] Care Team Providers Name Role Phone Unassigned, Pcp Primary Care Provider Unavailable Encounter Details Date Type Department Care Team Description 06/11/2021 Silent Schedule Department of Moni Gross Encounter For Obstetrics and E MIvory Supervision Of Other Gynecology in [address] Normal [place], [place] Unspecified Trimester [address] [address] [place], [place] [phone] (Work) [phone] Social History Tobacco Use Types Packs/Day Years [...] or relatives? How often do you attend congregation or Never 2020 muslim services? Do you belong to any clubs or No 05/22/2021 organizations such as congregation groups, unions, fraternal or athletic groups, or [...] at Date Recorded Female 05/18/2021 7:19 PM BOARD MIXER TENDER documented as of this encounter Plan of Treatment Not on filedocumented as of this encounter Procedures Procedure Name Priority Date/Time Associated Comments Diagnosis US OB FIRST RAD - Routine 06/11/2021 9:19 Encounter For Results fo r this TRIMESTER (most inpatients AM BOARD MIXER TENDER Supervision Of procedure are in and all Other Normal the results outpatients) section. Unspecified Trimester documented in this encounter Results US OB First Trimester (06/11/2021 9:19 AM BOARD MIXER TENDER) Anatomical Region Laterality Modality Body, Ultrasound OB RST LOS, Ultrasound ARZ LOS N/A Ultrasound Specimen (Source) Anatomical Collection Method Collection Time Re ceived Time Location / / Volume Laterality 06/11/2021 10:09 AM BOARD MIXER TENDER Impressions 06/11/2021 10:11 AM BOARD MIXER TENDER Single, viable, intrauterine with ultrasound derived estimated [...] sound dating is allowed before changing EDWARD. [facility] in [place] TELEVISION ACTOR Dept. [phone] Narrative 06/11/2021 10:11 AM BOARD MIXER TENDER First Trimester Ultrasound EXAM: US OB FIRST TRIMESTER HEALTH CARE PROVIDER: Dr. Gross COMPARISON: N/A RELEVANT CLINICAL INFORMATION/INDICATION : dating Estimated Date of Delivery (EDWARD) by LMP: 01/20/2022. Gestational age by LMP: 8 weeks 1 day FINDINGS: Gestational Sac: single, intrauterine Yolk Sac: 3.5 mm. heart rate: 161 beats per minute. [place] Rump Length: 19 mm. Age and EDWARD [...] mm. heart rate: 161 beats per minute. [place] Rump Length: 19 mm. Age and EDWARD [...] sound dating is allowed before changing EDWARD. [facility] in [place] TELEVISION ACTOR Dept. [phone] Moni Gross M.D. IMG OB US PROCEDURES documented in this encounter Visit Diagnoses Diagnosis Encounter For Supervision Of Other Veronica l Unspecified Trimester (HCC) documented in this encounter Additional Health Concerns Assessment Noted Time PHQ-9 Depression Total Score: 1 06/11/2021 10:22 AM CS T documented as of this encounter Care Teams Physical Design Engineer Relationship Specialty Start Date End Date Unassigned, Pcp PCP - General Family Medicine 06/11/21 documented as of this encounter
--- OUTSIDE RECORDS SUMMARY | 2022-01-05 10:55 | XMS_ITS | Encounter Summary ---
:1990 Author Organization [facility] Address [address] [place] [address] Care Team Providers Name Role Phone Unassigned, Pcp Primary Care Provider Unavailable Reason for Visit Reason Comments Routine Visit No concerns. Outpatient (Routine) - Closed Specialty Diagnoses / Procedures Referred By Contact Refer red To Contact Family Medicine Moni Gross M. D. [facility] Region [address] [place] [address] Referral ID Status Reason Start Date Expiration Date Visits Requ ested Visits Authorized [id number] Closed 06/11/2021 06/11/2022 1 1 Encounter Details Date Type Department Care Team Description 07/13/2021 Routine Department of Moni Wallis Medicine, Aria Barr M.D. Other Normal Clinic, in [place], [address] Second [place], [place] Trimester (Primary [address] [address] Dx) [place], [place] [phone] (Work) [phone] Social History Tobacco Use Types Packs/Day Years [...] or relatives? How often do you attend holiness or Never 2020 yarsani services? Do you belong to any clubs or No 05/22/2021 organizations such as holiness groups, unions, fraPepperdata or athletic groups, or school groups? How [...] place to sleep or slept in a mcc (including now)? Education Answer Date Recorded What is the highest level of school Bachelor's degree (e.g., BA, AB, 05/22/2021 you have completed or the highest BS) degree you have received? Sex Assigned at Date Recorded Female 05/18/2021 7:19 PM CONVENTIONAL MORTGAGE UNDERWRITER documented as of this encounter Last Filed Vital Signs Vital Sign Reading Time Taken Comments Blood Pressure - - Pulse - - Temperature 36.4 ??C (97.6 ??F) 07/13/2021 11:32 AM CONVENTIONAL MORTGAGE UNDERWRITER Respiratory Rate 17 07/13/2021 11:32 AM CONVENTIONAL MORTGAGE UNDERWRITER Oxygen Saturation - - Inhaled Oxygen Concentration - - Weight 83.6 kg (184 lb 4.9 oz) 07/13/2021 11:32 AM CONVENTIONAL MORTGAGE UNDERWRITER Height 173 cm (5' 8.11) 07/13/2021 11:32 AM CONVENTIONAL MORTGAGE UNDERWRITER Body Mass Index 27.93 07/13/2021 11:32 AM CONVENTIONAL MORTGAGE UNDERWRITER documented in this encounter Progress Notes Moni [...] behalf by Monique Esposito, a trained medical research scientist. The creation of this record isbased on the scribe remotely listening to the visit and the provider's statements to them. This document has been checked and approved by the attending provider. ENTIONAL MORTGAGE UNDERWRITER documented in this encounter Plan of Treatment Not on filedocumented as of this encounter Visit Diagnoses Diagnosis Examination Other Normal Pregna ncy Second Trimester (HCC) - Primary documented in this encounter Additional Health Concerns Assessment Noted Time PHQ-9 Depression Total Score: 1 06/11/2021 10:22 AM CS T documented as of this encounter Care Teams Visitor Services Information Assistant Relationship Specialty Start Date End Date Unassigned, Pcp PCP - General Family Medicine 06/11/21 documented as of this encounter
--- OUTSIDE RECORDS SUMMARY | 2022-01-05 10:55 | XMS_ITS | Encounter Summary ---
:1990 Author Organization [facility] Address [address] [place] [address] Care Team Providers Name Role Phone Unassigned, Pcp Primary Care Provider Unavailable Encounter Details Date Type Department Care Team Description 06/11/2021 Hospital Encounter Department of Moni Gross For Laboratory Medicine Liz Barr Supervision Of Other in [place], [address] Normal [place], [place] Unspecified [address] [address] Trimester [place], [place] [phone] (Work) [phone] Social History Tobacco Use Types Packs/Day Years [...] or relatives? How often do you attend tenriism or Never 2020 yazidi services? Do you belong to any clubs or No 05/22/2021 organizations such as tenriism groups, unions, fraternal or athletic groups, or [...] at Date Recorded Female 05/18/2021 7:19 PM LOG CHECK SCALER documented as of this encounter Medications at [...] For Resul ts for this MICROSCOPIC IF LOG CHECK SCALER Supervision Of Other proce dure are in INDICATED, U Normal the results Unspecified section. Trimester AL URINALYSIS AUTO Routine 06/11/2021 9:20 AM Res ults for this WO MICRO LOG CHECK SCALER procedure are i n the results section. BACTERIAL CULTURE, Routine 06/11/2021 9:20 AM Encounter For Re sults for this AEROBIC + SUSC, LOG CHECK SCALER Supervision Of Other proc edure are in URINE Normal the results Unspecified section. Trimester documented in this encounter Results (ABNORMAL) Microscopic Automated (06/11/2021 9:20 AM LOG CHECK SCALER) Analysis Performed At Patho logist Time Signature White Blood 11-20 (A) /hpf 06/11/2021 [place] Cells 9:38 AM LOG CHECK SCALER Comment: ----REFERENCE VALUE---- Males: 0-3 Females: 0-10 Unknown: 0-10 Red Blood Cells 3-10 (A) 0 - 2 /hpf 06/11/2021 9:38 AM LOG CHECK SCALER [facility] Dysmorphic Red Blood Cells <=25 <=25 % 06/11/2021 9: 38 AM LOG CHECK SCALER [facility] Hyaline Casts 1-3 /lpf 06/11/2021 9:38 AM LOG CHECK SCALER OWA T Squamous Cells 11-20 /hpf 06/11/2021 9:38 AM LOG CHECK SCALER [place] Bacteria Present (A) None Seen 06/11/2021 9:38 AM LOG CHECK SCALER [place] Specimen Anatomical Collection Method Collection Time Receive d Time (Source) Location / / Volume Laterality Urine 06/11/2021 9:20 AM 9:27 LOG CHECK SCALER AM LOG CHECK SCALER Moni Gross M.D. LAB URINE ORDERABLES Performing Organization Address City/[facility]/ZIP [facility] [place] Number [facility]- [address] [place] [address] [facility] [place] [place] [address] System in [place] [address] (ABNORMAL) Bacterial Culture, Aerobic + Susc, Urine (06/11/2021 9:20 AM LOG CHECK SCALER) Analysis Performed At Patho logist Time Signature Urine Culture Mixed 06/12/2021 [facility] hilda. (A) 9:12 AM LOG CHECK SCALER Specimen Anatomical Collection Method Collection Time Receive d Time (Source) Location / / Volume Laterality Urine (Urine, 06/11/2021 9:20 AM 06/11/19 2:06 Midstream) LOG CHECK SCALER PM LOG CHECK SCALER Comment: Specimen Source Site: Urine Moni Gross M.D. LAB MICROBIOLOGY - GENERAL O RDERABLES Performing Organization Address City/[facility]/ZIP [facility] [place] [facility]- [address] [place] [id number] [place] [address] [address] (ABNORMAL) Urinalysis with Microscopic if Indicated (06/11/2021 9:20 AM LOG CHECK SCALER) P athologist Signature Source Urine, 06/11/2021 [place] Urine, Clean 9:33 AM LOG CHECK SCALER Catch Clarity Cloudy (A) Clear 06/11/2021 [facility] 9:33 AM LOG CHECK SCALER Color Yellow 06/11/2021 [place] 9:33 AM LOG CHECK SCALER Comment: ----REFERENCE VALUE---- Colorless Yellow Juanita Blood Negative Negative 06/11/2021 9:33 AM LOG CHECK SCALER [facility] Nitrite Negative Negative 06/11/2021 9:33 AM LOG CHECK SCALER [facility] Leukocyte Esterase Small (A) Negative 06/11/2021 9:33 AM CS T [facility] Protein Negative mg/dL 06/11/2021 9:33 AM LOG CHECK SCALER [place] Comment: ----REFERENCE VALUE---- Negative Trace Glucose Negative Negative mg/dL 06/11/2021 9:33 AM LOG CHECK SCALER [place] [facility] Ketone Negative Negative mg/dL 06/11/2021 9:33 AM LOG CHECK SCALER OW [facility] Bilirubin Negative Negative 06/11/2021 9:33 AM LOG CHECK SCALER [facility] pH 7.0 5.0 - 8.0 06/11/2021 9:33 AM LOG CHECK SCALER [facility] Specific [place] 1.006 1.001 - 1.035 06/11/2021 9:33 AM LOG CHECK SCALER [facility] Urobilinogen 0.2 0.2 - 1.0 mg/dL 06/11/2021 9:33 AM CS T [facility] Specimen Anatomical Collection Method Collection Time Receive d Time (Source) Location / / Volume Laterality Urine (Urine, 06/11/2021 9:20 AM 06/11/19 9:27 Clean Catch) LOG CHECK SCALER AM LOG CHECK SCALER Moni Gross M.D. LAB URINE ORDERABLES Performing Organization Address City/State/ZIP Code Phon e Number [facility]- [address] [place] [address] [facility] [place] [address] System in [place] [address] documented in this encounter Visit Diagnoses Diagnosis Encounter For Supervision Of Other Veronica l Unspecified Trimester (HCC) documented in this encounter Additional Health Concerns Assessment Noted Time PHQ-9 Depression Total Score: 1 06/11/2021 10:22 AM CS T documented as of this encounter Care Teams General Manager [employer] Relationship Specialty Start Date End Date Unassigned, Pcp PCP - General Family Medicine 06/11/21 documented as of this encounter
--- OUTSIDE RECORDS SUMMARY | 2022-01-05 10:55 | XMS_ITS | Encounter Summary ---
:1990 Author Organization [facility] Address [address] [place] [address] Care Team Providers Name Role Phone Unassigned, Pcp Primary Care Provider Unavailable Encounter Details Date Type Department Care Team Description 06/11/2021 Hospital Encounter Department of Moni Gross For Laboratory Medicine Liz Barr Supervision Of Other in [place], [address] Normal [place], [place] Unspecified [address] [address] Trimester [place], [place] [phone] (Work) [phone] Social History Tobacco Use Types Packs/Day Years [...] or relatives? How often do you attend evangelical or Never 2020 baptist services? Do you belong to any clubs or No 05/22/2021 organizations such as evangelical groups, unions, fraternal or athletic groups, or [...] at Date Recorded Female 05/18/2021 7:19 PM AUTOMOBILE UPHOLSTERER documented as of this encounter Medications at [...] Encounter For Re sults for this SCRN, AUTOMOBILE UPHOLSTERER Supervision Of Other proce dure are in PLASMA Normal the results Unspecified section. Trimester SYPHILIS TOTAL AB Routine 06/11/2021 9:02 AM Encounter For Res ults for this W/ REFLEX S AUTOMOBILE UPHOLSTERER Supervision Of Other procedu re are in Normal the results Unspecified section. Trimester HBS ANTIGEN Routine 06/11/2021 9:02 AM Encounter For Results for this , S AUTOMOBILE UPHOLSTERER Supervision Of Other procedu re are in Normal the results Unspecified section. Trimester ABORH, RBC Routine 06/11/2021 9:02 AM Encounter For Results for this AUTOMOBILE UPHOLSTERER Supervision Of Other procedu re are in Normal the results Unspecified section. Trimester RUBELLA ANTIBODIES, Routine 06/11/2021 9:02 AM Encounter For R esults for this IGG AUTOMOBILE UPHOLSTERER Supervision Of Other procedu re are in Normal the results Unspecified section. Trimester CBC WITHOUT Routine 06/11/2021 9:02 AM Encounter For Results for this DIFFERENTIAL, B AUTOMOBILE UPHOLSTERER Supervision Of Other proc edure are in Normal the results Unspecified section. Trimester ANTIBODY SCREEN, B Routine 06/11/2021 9:02 AM Encounter For Re sults for this AUTOMOBILE UPHOLSTERER Supervision Of Other procedu re are in Normal the results Unspecified section. Trimester documented in this encounter Results Syphilis Total Ab w/ Reflex, Serum (06/11/2021 9:02 AM AUTOMOBILE UPHOLSTERER) [facility] gist Method Time Signature Syphilis Nonreactive Nonreactive 06/14/2021 [facility] Total Ab w/ 3:47 PM AUTOMOBILE UPHOLSTERER Reflex Comment: No serologic evidence of infection with T. pallidum (syphilis). ??Repeat testing may be cons idered in patients with suspected acute or primary syphilis in 2-4 weeks. For additional information on interpreta tion of the syphilis reverse algorithm and resul ts, see: [email or web address]-[email or web address]_[email or web address].[email or web address] df Specimen Anatomical Collection Method Collection Time Receive d Time (Source) Location / / Volume Laterality Blood (Blood, 06/11/2021 9:02 AM 06/14/19 1:54 Venous) AUTOMOBILE UPHOLSTERER PM AUTOMOBILE UPHOLSTERER Moni Gross M.D. LAB BLOOD ADD-ON Performing Organization Address City/State/[facility] Phon e Number [facility] [address] [place] [address] SUPPORT CENTER [facility] [place] [address] Laboratory Medicine and Pathology [address] [place] Rubella Antibodies, IgG (06/11/2021 9:02 AM AUTOMOBILE UPHOLSTERER) athologist Signature Rubella Ab, Positive 06/12/2021 [facility] IgG, S 9:27 PM AUTOMOBILE UPHOLSTERER Comment: Results suggest response to immunization or prior exposure to the virus. ----REFERENCE VALUE---- Vaccinated: Positive (>=1.0 AI) Unvaccinated: Negative (<=0.7 AI) Rubella IgG Antibody Index 1.9 06/12/2021 9: 27 PM AUTOMOBILE UPHOLSTERER [facility] Specimen Anatomical Collection Method Collection Time Receive d Time (Source) Location / / Volume Laterality Blood (Blood, 06/11/2021 9:02 AM 06/11/19 3:36 Venous) AUTOMOBILE UPHOLSTERER PM AUTOMOBILE UPHOLSTERER Moni Gross M.D. LAB MICROBIOLOGY - BLOOD ORD ERABLES Performing Organization Address City/State/ZIP Code Phon e Number [address] [phone] [place] [address] HIV-1/-2 Ag and Ab Scrn, Plasma (06/11/2021 9:02 AM AUTOMOBILE UPHOLSTERER) athologist Signature HIV Ag/Ab Negative Negative 06/12/2021 [facility] Scrn, 9:27 PM AUTOMOBILE UPHOLSTERER P Comment: Negative result does not rule out HIV in fection. If exposure to HIV infection occurred <14 d ays ago, contact the laboratory to request additi on of HIV-1 RNA detection / quantification test. HIV-1 p24 Ag Scrn, P Negative Negative 06/12/2021 9:27 PM AUTOMOBILE UPHOLSTERER [facility] Comment: Negative result does not rule out HIV in fection. If exposure to HIV infection occurred <14 d ays ago, contact the laboratory to request additi on of HIV-1 RNA detection / quantification test. HIV-1 Ab Scrn, P Negative Negative 06/12/2021 9:2 7 PM AUTOMOBILE UPHOLSTERER [facility] Comment: Negative result does not rule out HIV in fection. If exposure to HIV infection occurred <14 d ays ago, contact the laboratory to request additi on of HIV-1 RNA detection / quantification test. HIV-2 Ab Scrn, P Negative Negative 06/12/2021 9:2 7 PM AUTOMOBILE UPHOLSTERER [facility] Comment: Negative result does not rule out HIV in fection. If exposure to HIV infection occurred <14 d ays ago, contact the laboratory to request additi on of HIV-1 RNA detection / quantification test. Specimen Anatomical Collection Method Collection Time Receive d Time (Source) Location / / Volume Laterality Blood (Blood, 06/11/2021 9:02 AM 06/11/19 3:36 Venous) AUTOMOBILE UPHOLSTERER PM AUTOMOBILE UPHOLSTERER Moni Gross M.D. LAB MICROBIOLOGY - BLOOD ORD ERABLES Performing Organization Address City/State/ZIP Code Phon e Number [address] [phone] [place] [address] System [address] HBs Antigen , Serum (06/11/2021 9:02 AM AUTOMOBILE UPHOLSTERER) athologist Signature HBs Antigen Negative Negative 06/12/2021 [facility] , S 9:26 AM AUTOMOBILE UPHOLSTERER Specimen Anatomical Collection Method Collection Time Receive d Time (Source) Location / / Volume Laterality Blood (Blood, 06/11/2021 9:02 AM 06/12/19 7:17 Venous) AUTOMOBILE UPHOLSTERER AM AUTOMOBILE UPHOLSTERER Moni Gross M.D. LAB MICROBIOLOGY - BLOOD ORD ERABLES Performing Organization Address City/[facility]/ZIP Code Phon e Number [facility] [address] [place], [place] [address] SUPPORT CENTER [facility] [place] [address] Laboratory Medicine and Pathology [address] [place] CBC without Differential (06/11/2021 9:02 AM AUTOMOBILE UPHOLSTERER) P athologist Signature Hemoglobin 13.4 11.6 - 06/11/2021 [place] 15.0 g/dL 9:11 AM AUTOMOBILE UPHOLSTERER Hematocrit 39.4 35.5 - 06/11/2021 [place] 44.9 % 9:11 AM AUTOMOBILE UPHOLSTERER Erythrocytes 4.40 3.92 - 06/11/2021 [place] 5.13 9:11 AM AUTOMOBILE UPHOLSTERER x10(12)/L MCV 89.5 78.2 - 06/11/2021 [place] 97.9 fL 9:11 AM AUTOMOBILE UPHOLSTERER RBC Distrib Width 12.7 12.2 - 06/11/2021 [place] 16.1 % 9:11 AM AUTOMOBILE UPHOLSTERER Platelet Count 163 157 - 371 06/11/2021 [place] x10(9)/L 9:11 AM AUTOMOBILE UPHOLSTERER Leukocytes 5.7 3.4 - 9.6 06/11/2021 [place] x10(9)/L 9:11 AM AUTOMOBILE UPHOLSTERER Specimen Anatomical Collection Method Collection Time Receive d Time (Source) Location / / Volume Laterality Blood (Blood, 06/11/2021 9:02 AM 06/11/19 9:03 Venous) AUTOMOBILE UPHOLSTERER AM AUTOMOBILE UPHOLSTERER Moni Gross M.D. LAB BLOOD ADD-ON Performing Organization Address City/State/ZIP Code Phon e Number [facility]- [address] [place] [address] [place] [address] System in [place] [address] Antibody Screen, RBC (with reflex Antibody ID) (06/11/2021 9:02 AM AUTOMOBILE UPHOLSTERER) athologist Signature Antibody Screen NEG 06/11/2021 AUST 6:18 PM AUTOMOBILE UPHOLSTERER Specimen Anatomical Collection Method Collection Time Receive d Time (Source) Location / / Volume Laterality Blood (Blood, 06/11/2021 9:02 AM 06/11/19 3:04 Venous) AUTOMOBILE UPHOLSTERER PM AUTOMOBILE UPHOLSTERER Moni Gross M.D. LAB BLOOD BANK TEST ORDERABL ES Performing Organization Address City/State/ZIP Code Phon e Number [facility]- [address] [place] [address] [place] [place], [place] [id number] [place] [address] ABORh, RBC (06/11/2021 9:02 AM AUTOMOBILE UPHOLSTERER) athologist Signature ABO Group A 06/11/2021 6:18 AUST PM AUTOMOBILE UPHOLSTERER Rh Type POS 06/11/2021 6:18 AUST PM AUTOMOBILE UPHOLSTERER Specimen Anatomical Collection Method Collection Time Receive d Time (Source) Location / / Volume Laterality Blood (Blood, 06/11/2021 9:02 AM 06/11/19 3:04 Venous) AUTOMOBILE UPHOLSTERER PM AUTOMOBILE UPHOLSTERER Moni Gross M.D. LAB BLOOD BANK TEST ORDERABL ES Performing Organization Address City/[facility]/ZIP Code Phon e Number [facility]- [address] [place] [address] [place] [facility] [place], [place] [id number] [place] [address] [address] [facility] documented in this encounter Visit Diagnoses Diagnosis Encounter For Supervision Of Other Veronica l Unspecified Trimester (HCC) documented in this encounter Additional Health Concerns Assessment Noted Time PHQ-9 Depression Total Score: 1 06/11/2021 10:22 AM CS T documented as of this encounter Care Teams Youth Leader Relationship Specialty Start Date End Date Unassigned, Pcp PCP - General Family Medicine 06/11/21 documented as of this encounter
--- OUTSIDE RECORDS SUMMARY | 2022-01-05 10:56 | XMS_ITS | Encounter Summary ---
:1990 Author Organization [facility] Address [address] [place] [address] Care Team Providers Name Role Phone Unavailable Primary Care Provider Unavailable Reason for Visit Reason Comments Abdominal Cramping Encounter Details Date Type Department Care Team Description 01/08/2021 - Emergency [facility] Procedure And Treatment 01/09/[address] Not Carried Out Due To MADELYN RHODES [phone] Patient Leaving Prior To [phone] Being Seen By [facility] Care Provider ( Primary Dx) Social History [...] do you attend quaker or Never 2020 yarsanism services? Do you belong to any clubs [...] place to sleep or slept in a chcf (including now)? Sex Assigned at Date Recorded Female 05/18/2021 7:19 PM CLAIMS CORRESPONDENCE CLERK documented as of this encounter Plan of Treatment Not on filedocumented as of this encounter Visit Diagnoses Diagnosis Procedure And Treatment Not Carried Out Due To Patient Leaving Prior To Being Seen By Health Care Provider - Primary documented in this encounter
--- OUTSIDE RECORDS SUMMARY | 2022-01-05 10:56 | XMS_ITS | Encounter Summary ---
:1990 Author Organization [facility] Address [address] [place] [address] Care Team Providers Name Role Phone Unavailable Primary Care Provider Unavailable Reason for Visit Reason Comments Nurse Visit nob ed/intake appt Encounter Details Date Type Department Care Team Description 05/26/2021 Virtual Visit Department of Moni Gross M.D. [address], [place] [address] Encounter For Obstetrics and Shannan Mora R.N. [address], [place] [address] Supervision Of Other Gynecology in Normal [place], [place] Unspecified Trimester [address] [place] [address] Social History Tobacco Use Types Packs/Day [...] or relatives? How often do you attend oriental orthodox or Never 2020 yazdanism services? Do you belong to any clubs or No 05/22/2021 organizations such as oriental orthodox groups, unions, fraternal or athletic groups, or [...] at Date Recorded Female 05/18/2021 7:19 PM DISTANCE LEARNING TECHNICIAN documented as of this encounter Patient Instructions [...] Provided Today: Beginnings: , , and [facility] brochure-[facility] ANCE LEARNING TECHNICIAN documented in this encounter Progress Notes Shannan Mora R.N. - 05/26/2021 10:30 AM CST Consult conducted via real-time audio/video technology by Shannan Mora R.N. in [facility], Wall to the patient in Patient's Home. episode opened-please see history for details. States is very active with exercise and weight lifting-has adjusted with . Advised should cause any back/abdominal discomfort or SOB. Questions about calcium requirement. Discussed and sent Source of Calcium brochure via portal. Discussed COVID 19 precautions: vaccination, good handwashing, social distance, masking. Encouraged to call with questions or concerns. ANCE LEARNING TECHNICIAN documented in this encounter Plan of Treatment Not on filedocumented as of this encounter Results (ABNORMAL) Bacterial Culture, Aerobic + Susc, Urine (06/11/2021 9:20 AM DISTANCE LEARNING TECHNICIAN) Analysis Performed At Patho logist Time Signature Urine Culture Mixed 06/12/2021 MKTO hilda. (A) 9:12 AM DISTANCE LEARNING TECHNICIAN Specimen Anatomical Collection Method Collection Time Receive d Time (Source) Location / / Volume Laterality Urine (Urine, 06/11/2021 9:20 AM 06/11/19 2:06 Midstream) DISTANCE LEARNING TECHNICIAN PM DISTANCE LEARNING TECHNICIAN Comment: Specimen Source Site: Urine Moni Gross M.D. LAB MICROBIOLOGY - GENERAL O RDERABLES Performing Organization Address City/State/ZIP Code Phon e Number [facility]- [address] [place] [address] [place] [address] [address] (ABNORMAL) Urinalysis with Microscopic if Indicated (06/11/2021 9:20 AM DISTANCE LEARNING TECHNICIAN) P athologist Signature Source Urine, 06/11/2021 [place] Urine, Clean 9:33 AM DISTANCE LEARNING TECHNICIAN Catch Clarity Cloudy (A) Clear 06/11/2021 [place] 9:33 AM DISTANCE LEARNING TECHNICIAN Color Yellow 06/11/2021 OW[place] 9:33 AM DISTANCE LEARNING TECHNICIAN Comment: ----REFERENCE VALUE---- Colorless Yellow Juanita Blood Negative Negative 06/11/2021 9:33 AM DISTANCE LEARNING TECHNICIAN [place] Nitrite Negative Negative 06/11/2021 9:33 AM DISTANCE LEARNING TECHNICIAN [place] Leukocyte Esterase Small (A) Negative 06/11/2021 9:33 AM CS T OW[place] Protein Negative mg/dL 06/11/2021 9:33 AM DISTANCE LEARNING TECHNICIAN OW[place] Comment: ----REFERENCE VALUE---- Negative Trace Glucose Negative Negative mg/dL 06/11/2021 9:33 AM DISTANCE LEARNING TECHNICIAN OW AT Ketone Negative Negative mg/dL 06/11/2021 9:33 AM DISTANCE LEARNING TECHNICIAN OW AT Bilirubin Negative Negative 06/11/2021 9:33 AM DISTANCE LEARNING TECHNICIAN OW[place] pH 7.0 5.0 - 8.0 06/11/2021 9:33 AM DISTANCE LEARNING TECHNICIAN OW[place] Specific [place] 1.006 1.001 - 1.035 06/11/2021 9:33 AM DISTANCE LEARNING TECHNICIAN [place] Urobilinogen 0.2 0.2 - 1.0 mg/dL 06/11/2021 9:33 AM CS T OW[place] Specimen Anatomical Collection Method Collection Time Receive d Time (Source) Location / / Volume Laterality Urine (Urine, 06/11/2021 9:20 AM 06/11/19 9:27 Clean Catch) DISTANCE LEARNING TECHNICIAN AM DISTANCE LEARNING TECHNICIAN Moni Gross M.D. LAB URINE ORDERABLES Performing Organization Address City/[facility] Code Phon e Number [facility]- [address] [place] [address] [facility] [place] [address] System in [place] [address] Syphilis Total Ab w/ Reflex, Serum (06/11/2021 9:02 AM DISTANCE LEARNING TECHNICIAN) [facility] Method Time Signature Syphilis Nonreactive Nonreactive 06/14/2021 SDSC Total Ab w/ 3:47 PM DISTANCE LEARNING TECHNICIAN Reflex Comment: No serologic evidence of infection with T. pallidum (syphilis). ??Repeat testing may be cons idered in patients with suspected acute or primary syphilis in 2-4 weeks. For additional information on interpreta tion of the syphilis reverse algorithm and resul ts, see: [email or web address] df Specimen Anatomical Collection Method Collection Time Receive d Time (Source) Location / / Volume Laterality Blood (Blood, 06/11/2021 9:02 AM 06/14/19 1:54 Venous) DISTANCE LEARNING TECHNICIAN PM DISTANCE LEARNING TECHNICIAN Moni Gross M.D. LAB BLOOD ADD-ON Performing Organization Address City/[facility]/ZIP [facility] [place] [facility]on e [address] [facility] [address] [place] [address] [place] [address] [place] [address] Laboratory Medicine and Pathology [address] MADDEN Rubella Antibodies, IgG (06/11/2021 9:02 AM DISTANCE LEARNING TECHNICIAN) athologist Signature Rubella Ab, Positive 06/12/2021 [facility] IgG, S 9:27 PM DISTANCE LEARNING TECHNICIAN Comment: Results suggest response to immunization or prior exposure to the virus. ----REFERENCE VALUE---- Vaccinated: Positive (>=1.0 AI) Unvaccinated: Negative (<=0.7 AI) Rubella IgG Antibody Index 1.9 06/12/2021 9: 27 PM DISTANCE LEARNING TECHNICIAN CA Specimen Anatomical Collection Method Collection Time Receive d Time (Source) Location / / Volume Laterality Blood (Blood, 06/11/2021 9:02 AM 06/11/19 3:36 Venous) DISTANCE LEARNING TECHNICIAN PM DISTANCE LEARNING TECHNICIAN Moni Gross M.D. LAB MICROBIOLOGY - BLOOD ORD ERABLES Performing Organization Address City/State/ZIP Code Phon e Number [facility]- [address] [place] [address] [place] [address] HIV-1/-2 Ag and Ab Scrn, Plasma (06/11/2021 9:02 AM DISTANCE LEARNING TECHNICIAN) athologist Signature HIV Ag/Ab Negative Negative 06/12/2021 [facility] Scrn, 9:27 PM DISTANCE LEARNING TECHNICIAN Comment: Negative result does not rule out HIV in fection. If exposure to HIV infection occurred <14 d ays ago, contact the laboratory to request additi on of HIV-1 RNA detection / quantification test. HIV-1 p24 Ag Scrn, P Negative Negative 06/12/2021 9:27 PM DISTANCE LEARNING TECHNICIAN CA Comment: Negative result does not rule out HIV in fection. If exposure to HIV infection occurred <14 d ays ago, contact the laboratory to request additi on of HIV-1 RNA detection / quantification test. HIV-1 Ab Scrn, P Negative Negative 06/12/2021 9:2 7 PM DISTANCE LEARNING TECHNICIAN [facility] Comment: Negative result does not rule out HIV in fection. If exposure to HIV infection occurred <14 d ays ago, contact the laboratory to request additi on of HIV-1 RNA detection / quantification test. HIV-2 Ab Scrn, P Negative Negative 06/12/2021 9:2 7 PM DISTANCE LEARNING TECHNICIAN [facility] Comment: Negative result does not rule out HIV in fection. If exposure to HIV infection occurred <14 d ays ago, contact the laboratory to request additi on of HIV-1 RNA detection / quantification test. Specimen Anatomical Collection Method Collection Time Receive d Time (Source) Location / / Volume Laterality Blood (Blood, 06/11/2021 9:02 AM 06/11/19 22 3:36 Venous) DISTANCE LEARNING TECHNICIAN PM DISTANCE LEARNING TECHNICIAN Moni Gross M.D. LAB MICROBIOLOGY - BLOOD ORD ERABLES Performing Organization Address City/[facility]/ZIP Code Phon e Number [facility]- [address] [place] [address] [place] [address] HBs Antigen , Serum (06/11/2021 9:02 AM DISTANCE LEARNING TECHNICIAN) athologist Signature HBs Antigen Negative Negative 06/12/2021 [facility] , S 9:26 AM DISTANCE LEARNING TECHNICIAN Specimen Anatomical Collection Method Collection Time Receive d Time (Source) Location / / Volume Laterality Blood (Blood, 06/11/2021 9:02 AM 06/12/19 22 7:17 Venous) DISTANCE LEARNING TECHNICIAN AM DISTANCE LEARNING TECHNICIAN Moni Gross M.D. LAB MICROBIOLOGY - BLOOD ORD ERABLES Performing Organization Address City/State/ZIP Code Phon e Number [facility] [address] [place] [address] [facility] [place] [address] Laboratory Medicine and Pathology [address] MADDEN CBC without Differential (06/11/2021 9:02 AM DISTANCE LEARNING TECHNICIAN) athologist Signature Hemoglobin 13.4 11.6 - 06/11/2021 [place] 15.0 g/dL 9:11 AM DISTANCE LEARNING TECHNICIAN Hematocrit 39.4 35.5 - 06/11/2021 [place] 44.9 % 9:11 AM DISTANCE LEARNING TECHNICIAN Erythrocytes 4.40 3.92 - 06/11/2021 [place] 5.13 9:11 AM DISTANCE LEARNING TECHNICIAN x10(12)/L MCV 89.5 78.2 - 06/11/2021 [place] 97.9 fL 9:11 AM DISTANCE LEARNING TECHNICIAN RBC Distrib Width 12.7 12.2 - 06/11/2021 [place] 16.1 % 9:11 AM DISTANCE LEARNING TECHNICIAN Platelet Count 163 157 - 371 06/11/2021 [place] x10(9)/L 9:11 AM DISTANCE LEARNING TECHNICIAN Leukocytes 5.7 3.4 - 9.6 06/11/2021 [place] x10(9)/L 9:11 AM DISTANCE LEARNING TECHNICIAN Specimen Anatomical Collection Method Collection Time Receive d Time (Source) Location / / Volume Laterality Blood (Blood, 06/11/2021 9:02 AM 06/11/19 9:03 Venous) DISTANCE LEARNING TECHNICIAN AM DISTANCE LEARNING TECHNICIAN Moni Gross M.D. LAB BLOOD ADD-ON Performing Organization Address City/State/ZIP Code Phon e Number [facility]- [address] [place] [address] [facility] [place] [address] System in [place] [address] [facility] Antibody Screen, RBC (with reflex Antibody ID) (06/11/2021 9:02 AM DISTANCE LEARNING TECHNICIAN) P athologist Signature Antibody Screen NEG 06/11/2021 AUST 6:18 PM DISTANCE LEARNING TECHNICIAN Specimen Anatomical Collection Method Collection Time Receive d Time (Source) Location / / Volume Laterality Blood (Blood, 06/11/2021 9:02 AM 06/11/19 3:04 Venous) DISTANCE LEARNING TECHNICIAN PM DISTANCE LEARNING TECHNICIAN Moni Gross M.D. LAB BLOOD BANK TEST ORDERABL ES Performing Organization Address City/[facility]/ZIP Code Phon e Number [facility]- [address] [place] [address] [facility] [place] [address] [facility] [address] ABORh, RBC (06/11/2021 9:02 AM DISTANCE LEARNING TECHNICIAN) P athologist Signature ABO Group A 06/11/2021 6:18 AUST PM DISTANCE LEARNING TECHNICIAN Rh Type POS 06/11/2021 6:18 AUST PM DISTANCE LEARNING TECHNICIAN Specimen Anatomical Collection Method Collection Time Receive d Time (Source) Location / / Volume Laterality Blood (Blood, 06/11/2021 9:02 AM 06/11/19 3:04 Venous) DISTANCE LEARNING TECHNICIAN PM DISTANCE LEARNING TECHNICIAN Moni Gross M.D. LAB BLOOD BANK TEST ORDERABL ES Performing Organization Address City/State/ZIP Code Phon e Number [facility]- [address] [place] [address] [facility] [place] [address] [facility] [address] documented in this encounter Visit Diagnoses Diagnosis Encounter For Supervision Of Other Veronica l Unspecified Trimester (HCC) documented in this encounter
--- OUTSIDE RECORDS SUMMARY | 2022-01-05 10:56 | XMS_ITS | Encounter Summary ---
:1990 Author Organization [facility] Address [address] [place] [address] Care Team Providers Name Role Phone Unavailable Primary Care Provider Unavailable Reason for Referral Specialty Diagnoses / Procedures Referred By Contact Refer red To Contact [facility] [address] [place] [address] Referral ID Status Reason Start Date Expiration Date Visits Requ ested Visits Authorized Reason for Visit Appointment Request (Routine) - Closed Specialty Diagnoses / Procedures Referred By Contact Refer maribell To Contact Family Medicine Referral ID Status Reason Start Date Expiration Date Visits Requ ested Visits Authorized [id number] Closed 08/15/2020 08/15/2021 1 1 Encounter Details Date Type Department Care Team Description 08/21/2020 Immunization [facility] of [facility] For COVID-19 Medicine, [facility] Vaccine Immunization [facility], [facility] (Prim hue Dx) [address] [address] [facility] [phone] Social History Tobacco Use Types Packs/Day Years [...] or relatives? How often do you attend hindu or Never 2020 presybeterian services? Do you belong to any clubs or No 05/22/2021 organizations such as hindu groups, unions, fraternal or athletic groups, or [...] to sleep or slept in a senior living (including now)? Sex Assigned at Date Recorded Female 05/18/2021 7:19 PM CANVAS SHRINKER documented as of this encounter Plan of [...]
--- OUTSIDE RECORDS SUMMARY | 2022-01-05 10:56 | XMS_ITS | Encounter Summary ---
:1990 Author Organization [facility] Address [address] [place] [address] Care Team Providers Name Role Phone Unavailable Primary Care Provider Unavailable Reason for Referral Outpatient (Routine) - Closed Specialty Diagnoses / Procedures Referred By Contact Refer red To Contact Family Medicine Diagnoses Encounter For Supervision Of Other Normal Unspecified Trimester (HCC) Moni Gross M.D. [facility] [address] [place] [address] Referral ID Status Reason Start Date Expiration Date Visits Requ ested Visits Authorized [id number] Closed 05/18/2021 05/18/2022 1 1 Scheduling Instructions NOB after US ER PRODUCTION LINE ARC Specialty Diagnoses / Procedures Referred By Contact Jackie reyna To Contact Moni Gross M. D. [facility] [address] [place] [address] Referral ID Status Reason Start Date Expiration Date Visits Requ ested Visits Authorized ER PRODUCTION LINE ARC Encounter Details Date Type Department Care Team Description 05/18/2021 Clinical Communication Department of Gino Wallis MedicineAria M.D. [facility], in [facility] [address] [place], [place] [address] [place], [place] [phone] [address] (Work) [phone] Social History Tobacco Use Types Packs/Day Years [...] do you attend taoism or Never 2020 confucianist services? Do you [...] or slept in a fpc (including now)? Sex Assigned at Date Recorded Female 05/18/2021 7:19 PM WELDER PRODUCTION LINE ARC documented as of this encounter Miscellaneous Notes [...] following references were used: nursing clinical judgement. ER PRODUCTION LINE ARC Telephone Encounter - Jeffrey Villaseñor - 05/18/2021 [...] send all scheduling replies to scheduling pool. ER PRODUCTION LINE ARC documented in this encounter Plan of Treatment [...] US OB First Trimester (06/11/2021 9:19 AM WELDER PRODUCTION LINE ARC) Anatomical Region Laterality Modality Body, Ultrasound OB RST LOS, Ultrasound ARZ LOS N/A Ultrasound Specimen (Source) Anatomical Collection Method Collection Time Re ceived Time Location / / Volume Laterality 06/11/2021 10:09 AM WELDER PRODUCTION LINE ARC Impressions 06/11/2021 10:11 AM WELDER PRODUCTION LINE ARC Single, viable, intrauterine with ultrasound derived estimated [...] sound dating is allowed before changing EDWARD. [facility] in [place] MANAGER ERP Dept. [phone] Narrative 06/11/2021 10:11 AM WELDER PRODUCTION LINE ARC First Trimester Ultrasound EXAM: US OB FIRST TRIME[facility] PROVIDER: Dr. Gross COMPARISON: N/A RELEVANT CLINICAL INFORMATION/INDICATION : dating Estimated Date of Delivery (EDWARD) by LMP: 01/20/2022. Gestational age by LMP: 8 weeks 1 day FINDINGS: Gestational Sac: single, intrauterine Yolk Sac: 3.5 mm. heart rate: 161 beats per minute. Old [place] Rump Length: 19 mm. Age and EDWARD [...] mm. heart rate: 161 beats per minute. Old [place] Rump Length: 19 mm. Age and EDWARD [...] sound dating is allowed before changing EDWARD. [facility] in [place] MANAGER ERP Dept. [phone] Moni Gross M.D. IMG OB US PROCEDURES documented in this encounter Visit Diagnoses Diagnosis Encounter For Supervision Of Other Veronica l Unspecified Trimester (HCC) - Primary Encounter For Supervision Of Other Veronica l Unspecified Trimester (HCC) documented in this encounter
--- OUTSIDE RECORDS SUMMARY | 2022-01-05 10:56 | XMS_ITS | Encounter Summary ---
:1990 Author Organization [facility] Address [address] [place] [address] Care Team Providers Name Role Phone Unassigned, Pcp Primary Care Provider Unavailable Reason for Referral Outpatient (Routine) - Closed Specialty Diagnoses / Procedures Referred By Contact Refer red To Contact Family Medicine Moni Gross M. D. [facility] [address] [place] [address] Referral ID Status Reason Start Date Expiration Date Visits Requ ested Visits Authorized [id number] Closed 06/11/2021 06/11/2022 1 1 CARRIER INSPECTOR Reason for Visit Reason Comments Initial Visit Ultrasound Results Outpatient (Routine) - Closed Specialty Diagnoses / Procedures Referred By Contact Refer red To Contact Family Medicine Diagnoses Encounter For Supervision Of Other Normal Unspecified Trimester ([facility]) Moni Gross M.D. [facility] Region [address] [place] [address] Referral ID Status Reason Start Date Expiration Date Visits Requ ested Visits Authorized [id number] Closed 05/18/2021 05/18/2022 1 1 Encounter Details Date Type Department Care Team Description 06/11/2021 Routine Department of Moni Wallis For MedicineAria M.D. Supervision Of Other Clinic, in [facility] [address] Normal [place], [place] Unspecified Trimester [address] [address] MADELYN RHODES [phone] [address] (Work) [phone] Social History Tobacco Use Types Packs/Day Years [...] or relatives? How often do you attend mandaen or Never 2020 anabaptism services? Do you belong to any clubs or No 05/22/2021 organizations such as mandaen groups, unions, fraternal or athletic groups, or [...] place to sleep or slept in a halfway (including now)? Education Answer Date Recorded What is the highest level of school Bachelor's degree (e.g., BA, AB, 05/22/2021 you have completed or the highest BS) degree you have received? Sex Assigned at Date Recorded Female 05/18/2021 7:19 PM AIR CARRIER INSPECTOR documented as of this encounter Last Filed Vital Signs Vital Sign Reading Time Taken Comments Blood Pressure 108/70 06/11/2021 10:22 AM AIR CARRIER INSPECTOR Pulse - - Temperature - - Respiratory Rate - - Oxygen Saturation - - Inhaled Oxygen Concentration - - Weight 80.8 kg (178 lb 2.1 oz) 06/11/2021 10:22 AM AIR CARRIER INSPECTOR Height - - Body Mass Index - [...] and Family: Twice a week ??? Attends Pentecostalism Services: Never ??? Active Member of Clubs [...] behalf by Monique Esposito, a trained medical numerical control operator. The creation of this record isbased on [...] blood/lymph issues: Yes No urinary/reproductive issues: Yes CARRIER INSPECTOR documented in this encounter Plan of Treatment Scheduled Referrals Name Type Priority Associated Diagnoses Order S [facility] Family Medicine Outpatient Referral Routine Expec axel: office visit 07/12/2021 (clinic) (Approximate), Expires: 09/09/2022 documented as of this encounter Visit Diagnoses Diagnosis Encounter For Supervision Of Other Veronica anthony Unspecified Trimester (HCC) documented in this encounter Additional Health Concerns Assessment Noted Time PHQ-9 Depression Total Score: 1 06/11/2021 10:22 AM CS T documented as of this encounter Care Teams Enterprise Resource Planner Relationship Specialty Start Date End Date Unassigned, Pcp PCP - General Family Medicine 06/11/21 documented as of this encounter
[2022-01-05 13:22] LABS: Hepatitis C Virus Antibody* Negative (Negative)
== END 2022-01-05 10:54 | disposition home or self-care (01) ==
LOC: NFLDREF 10:53
PROVIDERS: PCP Family Medicine; Visit Provider Advanced Practice Midwife
DX: Z34.93 Encounter for supervision of normal pregnancy, unspecified, third trimester (principal); Z3A.38 38 weeks gestation of pregnancy
CPT/HCPCS: 86803

== ENCOUNTER 2022-01-17 16:48 | Inpatient (IN) | payer BC, SELFPAY ==
[2022-01-17] VITALS (8 sets, daily range): BP systolic 124–132; BP diastolic 81–85; PULSE 73–86; RESP 16–20; TEMP 36.8–37.2; O2SAT 98; BMI 35.8
--- OUTSIDE RECORDS SUMMARY | 2022-01-17 14:40 | XMS_ITS | Encounter Summary ---
:1990 Author Organization [facility] Address [address] [place] [address] Care Team Providers Name Role Phone Unassigned, Pcp Primary Care Provider Unavailable Reason for Referral Outpatient (Routine) - Closed Specialty Diagnoses / Procedures Referred By Contact Refer red To Contact Family Medicine Moni Gross M. D. [facility] Region [address] [place] [address] Referral ID Status Reason Start Date Expiration Date Visits Requ ested Visits Authorized [id number] Closed 08/10/2021 08/10/2022 1 1 Reason for Visit Reason Comments Routine Visit 16 5/7 weeks no concerns Appointment Request (Routine) - Closed Specialty Diagnoses / Procedures Referred By Contact Refer maribell To Contact Family Medicine Referral ID Status Reason Start Date Expiration Date Visits Requ ested Visits Authorized [id number] Closed 07/13/2021 07/13/2022 1 1 Encounter Details Date Type Department Care Team Description 08/10/2021 Routine Department of Moni Wallis Medicine, Aria Barr M.D. Other Normal Clinic, in [place], [address] [place], [place] Trimester (Primary [address] [address] Dx) [place], [place] [phone] [address] (Work) [phone] Social History Tobacco Use Types Packs/Day Years [...] or relatives? How often do you attend pentecostalism or Never 2020 alevism services? Do you belong to any clubs or No 05/22/2021 organizations such as pentecostalism groups, unions, fraternal or athletic groups, or [...] at Date Recorded Female 05/18/2021 7:19 PM HIGH REACH OPERATOR documented as of this encounter Last Filed [...] Body Mass Index 29.37 07/13/2021 11:32 AM HIGH REACH OPERATOR documented in this encounter Progress Notes Moni [...] Name Type Priority Associated Diagnoses Order S [facility] Outpatient Referral Routine Expec axel: office visit [...] IMPRESSION: Normal anatomic survey. Moni Gross M.D. IMG OB US PROCEDURES documented in this encounter Visit Diagnoses Diagnosis Examination Other Normal Pregna ncy Second Trimester (HCC) - Primary Examination Other Normal Pregna ncy Second Trimester (HCC) documented in this encounter Additional Health Concerns Assessment Noted Time PHQ-9 Depression Total Score: 1 06/11/2021 10:22 AM CS T documented as of this encounter Care Teams Top Stop Attacher Relationship Specialty Start Date End Date Unassigned, Pcp PCP - General Family Medicine 06/11/21 documented as of this encounter
--- OUTSIDE RECORDS SUMMARY | 2022-01-17 14:40 | XMS_ITS | Encounter Summary ---
:1990 Author Organization [facility] Address [address] [place] [address] Care Team Providers Name Role Phone Unassigned, Pcp Primary Care Provider Unavailable Encounter Details Date Type Department Care Team Description 06/11/2021 Hospital Encounter Department of Moni Gross For Laboratory Medicine Liz Barr Supervision Of Other in [place], [address] Normal [place], [place] Unspecified [address] [address] Trimester [place], [place] [phone] (Work) [phone] Social History Tobacco Use Types Packs/Day Years [...] do you attend moravian or Never 2020 synagogue services? Do you belong to any clubs [...] place to sleep or slept in a fdc (including now)? Education Answer Date Recorded What is the highest level of school Bachelor's degree (e.g., BA, AB, 05/22/2021 you have completed or the highest BS) degree you have received? Sex Assigned at Date Recorded Female 05/18/2021 7:19 PM STOCK SORTER documented as of this encounter Medications at [...] For Resul ts for this MICROSCOPIC IF STOCK SORTER Supervision Of Other proce dure are in INDICATED, U Normal the results Unspecified section. Trimester GA URINALYSIS AUTO Routine 06/11/2021 9:20 AM Res ults for this WO MICRO STOCK SORTER procedure are i n the results section. BACTERIAL CULTURE, Routine 06/11/2021 9:20 AM Encounter For Re sults for this AEROBIC + SUSC, STOCK SORTER Supervision Of Other proc edure are in URINE Normal the results Unspecified section. Trimester documented in this encounter Results (ABNORMAL) Microscopic Automated (06/11/2021 9:20 AM STOCK SORTER) Analysis Performed At Patho logist Time Signature White Blood 11-20 (A) /hpf 06/11/2021 OWAT Cells 9:38 AM STOCK SORTER Comment: ----REFERENCE VALUE---- Males: 0-3 Females: 0-10 Unknown: 0-10 Red Blood Cells 3-10 (A) 0 - 2 /hpf 06/11/2021 9:38 AM STOCK SORTER OWAT Dysmorphic Red Blood Cells <=25 <=25 % 06/11/2021 9: 38 AM STOCK SORTER OWAT Hyaline Casts 1-3 /lpf 06/11/2021 9:38 AM STOCK SORTER OWA T Squamous Cells 11-20 /hpf 06/11/2021 9:38 AM STOCK SORTER OW AT Bacteria Present (A) None Seen 06/11/2021 9:38 AM STOCK SORTER OWAT Specimen Anatomical Collection Method Collection Time Receive d Time (Source) Location / / Volume Laterality Urine 06/11/2021 9:20 AM 9:27 STOCK SORTER AM STOCK SORTER Moni Gross M.D. LAB URINE ORDERABLES Performing Organization Address City/[facility]/ZIP [facility] [place] [facility]- [address] [place] [address] [facility] [place] [address] System in [place] [address] [facility] (ABNORMAL) Bacterial Culture, Aerobic + Susc, Urine (06/11/2021 9:20 AM STOCK SORTER) [facility] Time Signature Urine Culture Mixed 06/12/2021 TO hilda. (A) 9:12 AM STOCK SORTER Specimen Anatomical Collection Method Collection Time Receive d Time (Source) Location / / Volume Laterality Urine (Urine, 06/11/2021 9:20 AM 06/11/19 2:06 Midstream) STOCK SORTER PM STOCK SORTER Comment: Specimen Source Site: Urine Moni Gross M.D. LAB MICROBIOLOGY - GENERAL O RDERABLES Performing Organization Address City/[facility]/ZIP Code Phon e Number [facility]- [address] [place] [id number] [place] [address] (ABNORMAL) Urinalysis with Microscopic if Indicated (06/11/2021 9:20 AM STOCK SORTER) P athologist Signature Source Urine, 06/11/2021 OWAT Urine, Clean 9:33 AM STOCK SORTER Catch Clarity Cloudy (A) Clear 06/11/2021 OWAT 9:33 AM STOCK SORTER Color Yellow 06/11/2021 OWAT 9:33 AM STOCK SORTER Comment: ----REFERENCE VALUE---- Colorless Yellow Juanita Blood Negative Negative 06/11/2021 9:33 AM STOCK SORTER OWAT Nitrite Negative Negative 06/11/2021 9:33 AM STOCK SORTER OWAT Leukocyte Esterase Small (A) Negative 06/11/2021 9:33 AM CS T OWAT Protein Negative mg/dL 06/11/2021 9:33 AM STOCK SORTER OWAT Comment: ----REFERENCE VALUE---- Negative Trace Glucose Negative Negative mg/dL 06/11/2021 9:33 AM STOCK SORTER OW AT Ketone Negative Negative mg/dL 06/11/2021 9:33 AM STOCK SORTER OW AT Bilirubin Negative Negative 06/11/2021 9:33 AM STOCK SORTER OWAT pH 7.0 5.0 - 8.0 06/11/2021 9:33 AM STOCK SORTER OW[place] Specific [place] 1.006 1.001 - 1.035 06/11/2021 9:33 AM STOCK SORTER OWAT Urobilinogen 0.2 0.2 - 1.0 mg/dL 06/11/2021 9:33 AM CS T OWAT Specimen Anatomical Collection Method Collection Time Receive d Time (Source) Location / / Volume Laterality Urine (Urine, 06/11/2021 9:20 AM 06/11/19 9:27 Clean Catch) STOCK SORTER AM STOCK SORTER Moni Gross M.D. LAB URINE ORDERABLES Performing Organization Address City/State/ZIP Code Phon e Number [facility]- [address] [place] [address] [facility] [place] [address] System in [place] [address] documented in this encounter Visit Diagnoses Diagnosis Encounter For Supervision Of Other Veronica l Unspecified Trimester (HCC) documented in this encounter Additional Health Concerns Assessment Noted Time PHQ-9 Depression Total Score: 1 06/11/2021 10:22 AM CS T documented as of this encounter Care Teams Stock Clipper Relationship Specialty Start Date End Date Unassigned, Pcp PCP - General Family Medicine 06/11/21 documented as of this encounter
--- OUTSIDE RECORDS SUMMARY | 2022-01-17 14:40 | XMS_ITS | Encounter Summary ---
:1990 Author Organization [facility] Address [address] [place] [address] Care Team Providers Name Role Phone Unassigned, Pcp Primary Care Provider Unavailable Encounter Details Date Type Department Care Team Description 08/31/2021 Ancillary Procedure Department of Moni Gross [facility] Obstetrics and E, MIvory Other Normal Gynecology in [address] [place], [place] Trimester [address] [address] [place], [place] [phone] [phone] (Work) [phone] Social History Tobacco Use Types Packs/Day Years [...] place to sleep or slept in a group home (including now)? Education Answer Date Recorded What is the highest level of school Bachelor's degree (e.g., BA, AB, 05/22/2021 you have completed or the highest BS) degree you have received? Sex Assigned at Date Recorded Female 05/18/2021 7:19 PM FRICTION SAW OPERATOR documented as of this encounter Plan of [...] documented as of this encounter Care Teams Hotel Engineer Relationship Specialty Start Date End Date Unassigned, Pcp PCP - General Family Medicine 06/11/21 documented as of this encounter
--- OUTSIDE RECORDS SUMMARY | 2022-01-17 14:40 | XMS_ITS | Encounter Summary ---
:1990 Author Organization [facility] Address [address] [place] [address] Care Team Providers Name Role Phone Unassigned, Pcp Primary Care Provider Unavailable Reason for Referral Outpatient (Routine) - Closed Specialty Diagnoses / Procedures Referred By Contact Refer red To Contact Moni Arias M. D[facility] [address] [place] [address] Referral ID Status Reason Start Date Expiration Date Visits Requ ested Visits Authorized [id number] Closed 09/01/2021 09/01/2022 1 1 Reason for Visit Reason Comments Routine Visit Outpatient (Routine) - Closed Specialty Diagnoses / Procedures Referred By Contact Refer red To Contact Moni Arias M. D[facility] [address] [place] [address] Referral ID Status Reason Start Date Expiration Date Visits Requ ested Visits Authorized [id number] Closed 08/10/2021 08/10/2022 1 1 Encounter Details Date Type Department Care Team Description 09/01/2021 Routine Department of Moni Wallis MedicineAria M.D. Other Normal Clinic, in [facility] [address] [place], [place] Trimester (Primary [address] [address] Dx) MADELYN RHODES [phone] (Work) [phone] Social History Tobacco Use Types Packs/Day Years [...] many times do you More than three mraianne es a week 05/22/2021 talk on the phone with family, friends, or neighbors? How often do you get together with friends Twice a week 05/22/2021 or relatives? How often do you attend roman catholic or Never 2020 confucianist services? Do you [...] at Date Recorded Female 05/18/2021 7:19 PM CABLE SWAGER documented as of this encounter Last Filed [...] Body Mass Index 30.84 07/13/2021 11:32 AM CABLE SWAGER documented in this encounter Progress Notes Moni [...] behalf by Trish Montero, a trained medical radiation therapist. The creation of this record is basedon the scribe remotely listening to the visit and the provider's statements to them. This document has been checked and approved by the attending provider. documented in this encounter Plan of Treatment Scheduled Referrals Name Type Priority Associated Diagnoses Order S [facility] Family Medicine Outpatient Referral Routine Expec axel: office visit 10/01/2021 (clinic) (Approximate), Expires: 12/01/2022 documented as of this encounter Visit Diagnoses Diagnosis Examination Other Normal Pregna ncy Second Trimester (HCC) - Primary documented in this encounter Additional Health Concerns Assessment Noted Time PHQ-9 Depression Total Score: 1 06/11/2021 10:22 AM CS T documented as of this encounter Care Teams Faucets Assembler Relationship Specialty Start Date End Date Unassigned, Pcp PCP - General Family Medicine 06/11/21 documented as of this encounter
--- OUTSIDE RECORDS SUMMARY | 2022-01-17 14:40 | XMS_ITS | Encounter Summary ---
:1990 Author Organization [facility] Address [address] [place] [address] Care Team Providers Name Role Phone Unavailable Primary Care Provider Unavailable Reason for Visit Reason Comments Abdominal Cramping Encounter Details Date Type Department Care Team Description 01/08/2021 - Emergency [facility] Procedure And Treatment 01/09/2021 [address] [facility] Not Carried Out Due To MADELYN RHODES [phone] Patient Leaving Prior To [phone] Being Seen By [facility] Care Provider ( Primary Dx) Social History [...] or relatives? How often do you attend yarsani or Never 2020 presybeterian services? Do you belong to any clubs or No 05/22/2021 organizations such as yarsani groups, unions, fraternal or athletic groups, or [...] or slept in a jail (including now)? Sex Assigned at Date Recorded Female 05/18/2021 7:19 PM COMIC BOOK DESIGNER documented as of this encounter Plan of Treatment Not on filedocumented as of this encounter Visit Diagnoses Diagnosis Procedure And Treatment Not Carried Out Due To Patient Leaving Prior To Being Seen By Health Care Provider - Primary documented in this encounter
--- OUTSIDE RECORDS SUMMARY | 2022-01-17 14:40 | XMS_ITS | Encounter Summary ---
:1990 Author Organization [facility] Address [address] [place] [address] Care Team Providers Name Role Phone Unavailable Primary Care Provider Unavailable Reason for Referral Outpatient (Routine) - Closed Specialty Diagnoses / Procedures Referred By Contact Refer red To Contact Family Medicine Diagnoses Encounter For Supervision Of Other Normal Unspecified Trimester (HCC) Moni Gross M.D. [facility] Region [address] [place] [address] Referral ID Status Reason Start Date Expiration Date Visits Requ ested Visits Authorized [id number] Closed 05/18/2021 05/18/2022 1 1 Scheduling Instructions NOB after US OSITION CLERK Specialty Diagnoses / Procedures Referred By Contact Refer red To Contact Moni Gross M. D. [facility] Region [address] [place] [address] Referral ID Status Reason Start Date Expiration Date Visits Requ ested Visits Authorized OSITION CLERK Encounter Details Date Type Department Care Team Description 05/18/2021 Clinical Communication Department of Gino Wallis MedicineAria M.D. [facility], in [facility] [address] [place], [place] [address] [address] MADELYN RHODES [phone] (Work) [phone] Social History Tobacco Use Types Packs/Day Years [...] do you attend synagogue or Never 2020 latter-day services? Do you belong to any clubs [...] slept in a group home (including now)? Sex Assigned at Date Recorded Female 05/18/2021 7:19 PM DISPOSITION CLERK documented as of this encounter Miscellaneous Notes [...] following references were used: nursing clinical judgement. OSITION CLERK Telephone Encounter - Jeffrey Villaseñor - 05/18/2021 [...] send all scheduling replies to scheduling pool. OSITION CLERK documented in this encounter Plan of Treatment [...] US OB First Trimester (06/11/2021 9:19 AM DISPOSITION CLERK) Anatomical Region Laterality Modality Body, Ultrasound OB RST LOS, Ultrasound ARZ LOS N/A Ultrasound Specimen (Source) Anatomical Collection Method Collection Time Re ceived Time Location / / Volume Laterality 06/11/2021 10:09 AM DISPOSITION CLERK Impressions 06/11/2021 10:11 AM DISPOSITION CLERK Single, viable, intrauterine with ultrasound derived estimated [...] sound dating is allowed before changing EDWARD. [facility] [place] UTILITY SALES AND SERVICE MANAGER Dept. [phone] [facility] 06/11/2021 10:11 AM DISPOSITION CLERK First Trimester Ultrasound EXAM: US OB FIRST TRIMESTER HEALTH CARE PROVIDER: Dr. Gross COMPARISON: N/A RELEVANT CLINICAL INFORMATION/INDICATION : dating Estimated Date of Delivery (EDWARD) by LMP: 01/20/2022. Gestational age by LMP: 8 weeks 1 day FINDINGS: Gestational Sac: single, intrauterine Yolk Sac: 3.5 mm. heart rate: 161 beats per minute. [place] Rump Length: 19 mm. Age and EDWARD [...] mm. heart rate: 161 beats per minute. [place] Rump Length: 19 mm. Age and EDWARD [...] sound dating is allowed before changing EDWARD. [facility] in [place] UTILITY SALES AND SERVICE MANAGER Dept. [phone] Moni Gross M.D. IMG OB US PROCEDURES documented in this encounter Visit Diagnoses Diagnosis Encounter For Supervision Of Other Veronica l Unspecified Trimester (HCC) - Primary Encounter For Supervision Of Other Veronica l Unspecified Trimester (HCC) documented in this encounter
--- OUTSIDE RECORDS SUMMARY | 2022-01-17 14:40 | XMS_ITS | Encounter Summary ---
:1990 Author Organization [facility] Address [address] [place] [address] Care Team Providers Name Role Phone Unassigned, Pcp Primary Care Provider Unavailable Encounter Details Date Type Department Care Team Description 01/14/2022 Abstract [facility] Provider, Historical Social History Tobacco Use Types Packs/Day Years [...] do you attend evangelical or Never 2020 yazidi services? Do you [...] at Date Recorded Female 05/18/2021 7:19 PM INTRANET SUPPORT documented as of this encounter Plan of Treatment Not on filedocumented as of this encounter Visit Diagnoses Not on filedocumented in this encounter Additional Health Concerns Assessment Noted Time PHQ-9 Depression Total Score: 1 06/11/2021 10:22 AM CS T documented as of this encounter Care Teams Helicopter Repairer Relationship Specialty Start Date End Date Unassigned, Pcp PCP - General Family Medicine 06/11/21 documented as of this encounter
--- OUTSIDE RECORDS SUMMARY | 2022-01-17 14:40 | XMS_ITS | Encounter Summary ---
:1990 Author Organization [facility] Address [address] [place] [address] Care Team Providers Name Role Phone Unassigned, Pcp Primary Care Provider Unavailable Reason for Referral Outpatient (Routine) - Authorized Specialty Diagnoses / Procedures Referred By Contact Refer red To Contact Family Moni Ar[facility] [address] [address] Referral ID Status Reason Start Date Expiration Date Visits V isits Requested Authorized [id number] Authorized 10/29/2021 10/29/2022 1 1 Reason for Visit Reason Comments Routine Visit 28 wk 1 day - no concerns Outpatient (Routine) - Closed Specialty Diagnoses / Procedures Referred By Contact Jackie reyna To Contact Moni Arias M. [facility]. [facility] [address] [place] [address] Referral ID Status Reason Start Date Expiration Date Visits Requ ested Visits Authorized [id number] Closed 09/28/2021 09/28/2022 1 1 Encounter Details Date Type Department Care Team Description 10/29/2021 Routine Department of Moni Wallis MedicineAria M.D. Other Normal Clinic, in [facility] [address] [place], [place] Trimester (HCC) [address] [address] (Primary Dx) MADELYN RHODES [phone] (Work) [phone] Social History Tobacco Use Types Packs/Day Years [...] or relatives? How often do you attend scientologist or Never 2020 amish services? Do you belong to any clubs or No 05/22/2021 organizations such as scientologist groups, unions, fraternal or athletic groups, or [...] place to sleep or slept in a usp (including now)? Education Answer Date Recorded What is the highest level of school Bachelor's degree (e.g., BA, AB, 05/22/2021 you have completed or the highest BS) degree you have received? Sex Assigned at Date Recorded Female 05/18/2021 7:19 PM KINDERGARTEN TUTOR documented as of this encounter Last Filed [...] Body Mass Index 33.01 07/13/2021 11:32 AM KINDERGARTEN TUTOR documented in this encounter Progress Notes Moni [...] Name Type Priority Associated Diagnoses Order S [facility] Medicine Outpatient Referral Routine Expec axel: office visit 11/28/2021 (clinic) (Approximate), Expires: 01/29/2023 documented as of this encounter Visit Diagnoses Diagnosis Examination Other Normal Pregna ncy Third Trimester (HCC) - Primary documented in this encounter Additional Health Concerns Assessment Noted Time PHQ-9 Depression Total Score: 1 06/11/2021 10:22 AM CS T documented as of this encounter Care Teams Raised Printer Relationship Specialty Start Date End Date Unassigned, Pcp PCP - General Family Medicine 06/11/21 documented as of this encounter
--- OUTSIDE RECORDS SUMMARY | 2022-01-17 14:40 | XMS_ITS | Encounter Summary ---
:1990 Author Organization [facility] Address [address] [place] [address] Care Team Providers Name Role Phone Unassigned, Pcp Primary Care Provider Unavailable Encounter Details Date Type Department Care Team Description 10/29/2021 Hospital Encounter Department of Moni Gross Laboratory Medicine Liz Barr Other Normal in [place], [address] [place], [place] Trimester (HCC) [address] [address] [place], [place] [phone] (Work) [phone] Social History Tobacco Use Types Packs/Day Years [...] or relatives? How often do you attend baptist or Never 2020 denominational services? Do you belong to any clubs or No 05/22/2021 organizations such as baptist groups, unions, fraternal or athletic groups, or [...] at Date Recorded Female 05/18/2021 7:19 PM SHIP CLEANER documented as of this encounter Medications at [...] Address City/State/ZIP Code Phon e Number [facility]- [address] [place] [address] [place] [address] System in [place] [address] [facility] Glucose Tolerance Test, 1 hour (10/29/2021 8:28 [...] Address City/State/ZIP Code Phon e Number [facility]- [address] [place] [address] [place] [address] System in [place] [address] [facility] documented in this encounter Visit Diagnoses Diagnosis Examination Other Normal Pregna ncy Second Trimester (HCC) documented in this encounter Additional Health Concerns Assessment Noted Time PHQ-9 Depression Total Score: 1 06/11/2021 10:22 AM CS T documented as of this encounter Care Teams Tape Librarian Relationship Specialty Start Date End Date Unassigned, Pcp PCP - General Family Medicine 06/11/21 documented as of this encounter
--- OUTSIDE RECORDS SUMMARY | 2022-01-17 14:40 | XMS_ITS | Encounter Summary ---
:1990 Author Organization [facility] Address [address] [place] [address] Care Team Providers Name Role Phone Unassigned, Pcp Primary Care Provider Unavailable Encounter Details Date Type Department Care Team Description 06/11/2021 Silent Schedule Department of Moni Gross Encounter For Obstetrics and E, MIvory Supervision Of Other Gynecology in [address] [place], [place] Unspecified Trimester [address] [address] [place], [place] [phone] (Work) [phone] Social History Tobacco Use Types Packs/Day Years [...] or relatives? How often do you attend hoahaoism or Never 2020 alevism services? Do you belong to any clubs or No 05/22/2021 organizations such as hoahaoism groups, unions, fraternal or athletic groups, or [...] at Date Recorded Female 05/18/2021 7:19 PM PLASTICS FABRICATION SUPERVISOR documented as of this encounter Plan of Treatment Not on filedocumented as of this encounter Procedures Procedure Name Priority Date/Time Associated Comments Diagnosis US OB FIRST RAD - Routine 06/11/2021 9:19 Encounter For Results fo r this TRIMESTER (most inpatients AM PLASTICS FABRICATION SUPERVISOR Supervision Of procedure are in and all Other Normal the results outpatients) section. Unspecified Trimester documented in this encounter Results US OB First Trimester (06/11/2021 9:19 AM PLASTICS FABRICATION SUPERVISOR) Anatomical Region Laterality Modality Body, Ultrasound OB RST LOS, Ultrasound ARZ LOS N/A Ultrasound Specimen (Source) Anatomical Collection Method Collection Time Re ceived Time Location / / Volume Laterality 06/11/2021 10:09 AM PLASTICS FABRICATION SUPERVISOR Impressions 06/11/2021 10:11 AM PLASTICS FABRICATION SUPERVISOR Single, viable, intrauterine with ultrasound derived estimated [...] sound dating is allowed before changing EDWARD. [facility] in [place] PLANT OPERATIONS COORDINATOR Dept. [phone] Narrative 06/11/2021 10:11 AM PLASTICS FABRICATION SUPERVISOR First Trimester Ultrasound EXAM: US OB FIRST TRIMESTER HEALTH CARE PROVIDER: Dr. Gross COMPARISON: N/A RELEVANT CLINICAL INFORMATION/INDICATION : dating Estimated Date of Delivery (EDWARD) by LMP: 01/20/2022. Gestational age by LMP: 8 weeks 1 day FINDINGS: Gestational Sac: single, intrauterine Yolk Sac: 3.5 mm. heart rate: [address] [place] Rump Length: 19 mm. Age and EDWARD [...] mm. heart rate: [address] [place] Rump Length: 19 mm. Age and EDWARD [...] sound dating is allowed before changing EDWARD. [facility] in [place] PLANT OPERATIONS COORDINATOR Dept. [phone] Moni Gross M.D. IMG OB US PROCEDURES documented in this encounter Visit Diagnoses Diagnosis Encounter For Supervision Of Other Veronica l Unspecified Trimester (HCC) documented in this encounter Additional Health Concerns Assessment Noted Time PHQ-9 Depression Total Score: 1 06/11/2021 10:22 AM CS T documented as of this encounter Care Teams Industrial Psychology Professor Relationship Specialty Start Date End Date Unassigned, Pcp PCP - General Family Medicine 06/11/21 documented as of this encounter
--- OUTSIDE RECORDS SUMMARY | 2022-01-17 14:40 | XMS_ITS | Clinical Summary ---
:1990 Author Organization [facility] Address [address] [place] [address] Care Team Providers Name Role Phone Unassigned, Pcp Primary Care Provider Unavailable Source Comments Patient records contain information from all sites at [facility]. For routine questions regarding patient records, call [phone] during business hours, M-F 8:00 AM - 5:00 PM Central Time. Record requests for emergency care only can be directed to [phone] at any time.[facility] Allergies Active Allergy Reactions Severity Noted Date Comments Neomycin-Polymyxin Edema, Other (see comments), 2013 B-Dexameth Itching Medications Medication Sig Dispensed Refills Start Date End Date Status vits96/iron Take 2 tablets by 0 Active fum/folic ( mouth daily. vitamin-ferrous fumarate-FA) 27 mg iron- 800 mcg per tablet Encounters Date Type Specialty Care Team Description 01/14/2022 Abstract Family Medicine Provider, Historical 10/29/2021 Routine Family Medicine Moni Gross Exa mination M.D. Other Normal Pregnanc y Third Trimester (HCC) (Primary Dx) 10/29/2021 Hospital Encounter Laboratory Medicine Moni Gross Examination M.D. Other Normal Pregnanc y Second Trimeste r (HCC) from Last 3 Months Immunizations Name [...] or relatives? How often do you attend yazidi or Never 2020 voodoo services? Do you belong to any clubs or No 05/22/2021 organizations such as yazidi groups, unions, [employer] or athletic groups, or school groups? How [...] place to sleep or slept in a assisted (including now)? Education Answer Date Recorded What is the highest level of school Bachelor's degree (e.g., BA, AB, 05/22/2021 you have completed or the highest BS) degree you have received? 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 Last Filed Vital Signs Vital Sign Reading [...] 173 cm (5' 8.11) 07/13/2021 11:32 AM RICE FARMER Body Mass Index 33.01 07/13/2021 11:32 AM RICE FARMER Plan of Treatment Health Maintenance Due Date [...] Phon e Number [facility]- [address] [place] [address] [place] [address] System in [place] [address] Hemoglobin (10/29/2021 8:28 [...] Phon e Number [facility]- [address] [place] [address] [place] [address] System in [place] [address] from Last 3 Months Insurance Payer Benefit Plan / Subscriber ID Effective Dates Phone Addre ss Type Group [employer] [place] [id number] 2021-Presen [phone] [address] [address] PPO BLUE SHIELD t [address] [place] [address] Advance Directives For more information, please contact: [phone] Documents on File Type Date Recorded Patient [employer] Dean Explanati on Advance Directives 01/12/2022 11:30 AM Caleb Choe HCPOA/ADVOCATE/AGENT/REP RESENTATIVE/SURR OGATE Healthcare Agents on File Name Relationship Healthcare Agent Relationship Co mmunication Caleb Rutledge Spouse Health Care Agent [email or web address] Tanya Дмитрий Mother [facility] Health Care Agent Care Teams Labor Relations Specialist Relationship Specialty Start Date End Date Unassigned, Pcp PCP - General Family Medicine 06/11/21
--- OUTSIDE RECORDS SUMMARY | 2022-01-17 14:40 | XMS_ITS | Encounter Summary ---
:1990 Author Organization [facility] Address [address] [place] [address] Care Team Providers Name Role Phone Unassigned, Pcp Primary Care Provider Unavailable Reason for Referral Outpatient (Routine) - Closed Specialty Diagnoses / Procedures Referred By Contact Refer red To Contact Family Medicine Moni Gross M. D. [facility] [address] [address] Referral ID Status Reason Start Date Expiration Date Visits Requ ested Visits Authorized [id number] Closed 06/11/2021 06/11/2022 1 1 MENT SETTER Reason for Visit Reason Comments Initial Visit Ultrasound Results Outpatient (Routine) - Closed Specialty Diagnoses / Procedures Referred By Contact Refer red To Contact Family Medicine Diagnoses Encounter For Supervision Of Other Normal Unspecified Trimester (HCC) Moni Gross M.D. [facility] [address] [place] [address] Referral ID Status Reason Start Date Expiration Date Visits Requ ested Visits Authorized [id number] Closed 05/18/2021 05/18/2022 1 1 Encounter Details Date Type Department Care Team Description 06/11/2021 Routine Department of [facility] For MedicineAria M.D. Supervision Of Other Clinic, in [place], [address] Normal [place] MADELYN Rhodes Unspecified Trimester [address] [address] MADELYN RHODES [phone] (Work) [phone] Social History Tobacco Use Types Packs/Day Years [...] or relatives? How often do you attend voodoo or Never 2020 taoist services? Do you belong to any clubs or No 05/22/2021 organizations such as voodoo groups, unions, fraternal or athletic groups, or [...] place to sleep or slept in a fci (including now)? Education Answer Date Recorded What is the highest level of school Bachelor's degree (e.g., BA, AB, 05/22/2021 you have completed or the highest BS) degree you have received? Sex Assigned at Date Recorded Female 05/18/2021 7:19 PM ORNAMENT SETTER documented as of this encounter Last Filed Vital Signs Vital Sign Reading Time Taken Comments Blood Pressure 108/70 06/11/2021 10:22 AM ORNAMENT SETTER Pulse - - Temperature - - Respiratory Rate - - Oxygen Saturation - - Inhaled Oxygen Concentration - - Weight 80.8 kg (178 lb 2.1 oz) 06/11/2021 10:22 AM ORNAMENT SETTER Height - - Body Mass Index - [...] and Family: Twice a week ??? Attends Mormonism Services: Never ??? Active Member of Clubs [...] behalf by Monique Esposito, a trained medical laboratory manager. The creation of this record isbased on [...] blood/lymph issues: Yes No urinary/reproductive issues: Yes MENT SETTER documented in this encounter Plan of Treatment Scheduled Referrals Name Type Priority Associated Diagnoses Order S [facility] Medicine Outpatient Referral Routine Expec axel: office visit 07/12/2021 (clinic) (Approximate), Expires: 09/09/2022 documented as of this encounter Visit Diagnoses Diagnosis Encounter For Supervision Of Other Veronica anthony Unspecified Trimester (HCC) documented in this encounter Additional Health Concerns Assessment Noted Time PHQ-9 Depression Total Score: 1 06/11/2021 10:22 AM CS T documented as of this encounter Care Teams Fishing Reel Assembler Relationship Specialty Start Date End Date Unassigned, Pcp PCP - General Family Medicine 06/11/21 documented as of this encounter
--- OUTSIDE RECORDS SUMMARY | 2022-01-17 14:40 | XMS_ITS | Encounter Summary ---
:1990 Author Organization [facility] Address [address] [place] [address] Care Team Providers Name Role Phone Unassigned, Pcp Primary Care Provider Unavailable Encounter Details Date Type Department Care Team Description 06/11/2021 Hospital Encounter Department of Moni Gross For Laboratory Medicine Liz Barr Supervision Of Other in [place], [address] Normal [place], [place] Unspecified [address] [address] Trimester [place], [place] [phone] (Work) [phone] Social History Tobacco Use Types Packs/Day Years [...] or relatives? How often do you attend latter-day or Never 2020 muslim services? Do you belong to any clubs or No 05/22/2021 organizations such as latter-day groups, unions, fraternal or athletic groups, or [...] at Date Recorded Female 05/18/2021 7:19 PM STUDIO HAND documented as of this encounter Medications at [...] Encounter For Re sults for this SCRN, STUDIO HAND Supervision Of Other proce dure are in PLASMA Normal the results Unspecified section. Trimester SYPHILIS TOTAL AB Routine 06/11/2021 9:02 AM Encounter For Res ults for this W/ REFLEX S STUDIO HAND Supervision Of Other procedu re are in Normal the results Unspecified section. Trimester HBS ANTIGEN Routine 06/11/2021 9:02 AM Encounter For Results for this , S STUDIO HAND Supervision Of Other procedu re are in Normal the results Unspecified section. Trimester ABORH, RBC Routine 06/11/2021 9:02 AM Encounter For Results for this STUDIO HAND Supervision Of Other procedu re are in Normal the results Unspecified section. Trimester RUBELLA ANTIBODIES, Routine 06/11/2021 9:02 AM Encounter For R esults for this IGG STUDIO HAND Supervision Of Other procedu re are in Normal the results Unspecified section. Trimester CBC WITHOUT Routine 06/11/2021 9:02 AM Encounter For Results for this DIFFERENTIAL, B STUDIO HAND Supervision Of Other proc edure are in Normal the results Unspecified section. Trimester ANTIBODY SCREEN, B Routine 06/11/2021 9:02 AM Encounter For Re sults for this STUDIO HAND Supervision Of Other procedu re are in Normal the results Unspecified section. Trimester documented in this encounter Results Syphilis Total Ab w/ Reflex, Serum (06/11/2021 9:02 AM STUDIO HAND) [facility] Signature Syphilis Nonreactive Nonreactive 06/14/2021 [facility] Total Ab w/ 3:47 PM STUDIO HAND Reflex Comment: No serologic evidence of infection with T. pallidum (syphilis). ??Repeat testing may be cons idered in patients with suspected acute or primary syphilis in 2-4 weeks. For additional information on interpreta tion of the syphilis reverse algorithm and resul ts, see: [email or web address] beachEko India [email or web address] it-mmfiles/Syphilis_Serology_Algorithm.p df Specimen Anatomical Collection Method Collection Time Receive d Time (Source) Location / / Volume Laterality Blood (Blood, 06/11/2021 9:02 AM 06/14/19 1:54 Venous) STUDIO HAND PM STUDIO HAND Moni Gross M.D. LAB BLOOD ADD-ON Performing Organization Address City/State/ZIP Code Phon e Number [facility] [address] [place], [place] [address] [facility] [place] [address] Laboratory Medicine and Pathology [address] [place] Rubella Antibodies, IgG (06/11/2021 9:02 AM STUDIO HAND) athologist Signature Rubella Ab, Positive 06/12/2021 [facility] IgG, S 9:27 PM STUDIO HAND Comment: Results suggest response to immunization or prior exposure to the virus. ----REFERENCE VALUE---- Vaccinated: Positive (>=1.0 AI) Unvaccinated: Negative (<=0.7 AI) Rubella IgG Antibody Index 1.9 06/12/2021 9: 27 PM STUDIO HAND [facility] Specimen Anatomical Collection Method Collection Time Receive d Time (Source) Location / / Volume Laterality Blood (Blood, 06/11/2021 9:02 AM 06/11/19 22 3:36 Venous) STUDIO HAND PM STUDIO HAND Moni Gross M.D. LAB MICROBIOLOGY - BLOOD ORD ERABLES Performing Organization Address City/[facility]/ZIP Code Phon e Number [address] [phone] [place] [address] HIV-1/-2 Ag and Ab Scrn, Plasma (06/11/2021 9:02 AM STUDIO HAND) P athologist Signature HIV Ag/Ab Negative Negative 06/12/2021 [facility] Scrn, 9:27 PM STUDIO HAND P Comment: Negative result does not rule out HIV in fection. If exposure to HIV infection occurred <14 d ays ago, contact the laboratory to request additi on of HIV-1 RNA detection / quantification test. HIV-1 p24 Ag Scrn, P Negative Negative 06/12/2021 9:27 PM STUDIO HAND [facility] Comment: Negative result does not rule out HIV in fection. If exposure to HIV infection occurred <14 d ays ago, contact the laboratory to request additi on of HIV-1 RNA detection / quantification test. HIV-1 Ab Scrn, P Negative Negative 06/12/2021 9:2 7 PM STUDIO HAND [facility] Comment: Negative result does not rule out HIV in fection. If exposure to HIV infection occurred <14 d ays ago, contact the laboratory to request additi on of HIV-1 RNA detection / quantification test. HIV-2 Ab Scrn, P Negative Negative 06/12/2021 9:2 7 PM STUDIO HAND [facility] Comment: Negative result does not rule out HIV in fection. If exposure to HIV infection occurred <14 d ays ago, contact the laboratory to request additi on of HIV-1 RNA detection / quantification test. Specimen Anatomical Collection Method Collection Time Receive d Time (Source) Location / / Volume Laterality Blood (Blood, 06/11/2021 9:02 AM 06/11/19 22 3:36 Venous) STUDIO HAND PM STUDIO HAND Moni Gross M.D. LAB MICROBIOLOGY - BLOOD ORD ERABLES Performing Organization Address City/State/ZIP Code Phon e Number [address] [place], [place] [address] [place] [address] [address] HBs Antigen , Serum (06/11/2021 9:02 AM STUDIO HAND) P athologist Signature HBs Antigen Negative Negative 06/12/2021 [facility] , S 9:26 AM STUDIO HAND Specimen Anatomical Collection Method Collection Time Receive d Time (Source) Location / / Volume Laterality Blood (Blood, 06/11/2021 9:02 AM 06/12/19 7:17 Venous) STUDIO HAND AM STUDIO HAND Moni Gross M.D. LAB MICROBIOLOGY - BLOOD ORD ERABLES Performing Organization Address City/State/ZIP Code Phon e Number [facility] [place], [place] [address] [facility] [place] [address] Laboratory Medicine and Pathology [address] [place] CBC without Differential (06/11/2021 9:02 AM STUDIO HAND) athologist Signature Hemoglobin 13.4 11.6 - 06/11/2021 [facility] 15.0 g/dL 9:11 AM STUDIO HAND Hematocrit 39.4 35.5 - 06/11/2021 [facility] 44.9 % 9:11 AM STUDIO HAND Erythrocytes 4.40 3.92 - 06/11/2021 [facility] 5.13 9:11 AM STUDIO HAND x10(12)/L MCV 89.5 78.2 - 06/11/2021 [facility] 97.9 fL 9:11 AM STUDIO HAND RBC Distrib Width 12.7 12.2 - 06/11/2021 [facility] 16.1 % 9:11 AM STUDIO HAND Platelet Count 163 157 - 371 06/11/2021 [facility] x10(9)/L 9:11 AM STUDIO HAND Leukocytes 5.7 3.4 - 9.6 06/11/2021 [facility] x10(9)/L 9:11 AM STUDIO HAND Specimen Anatomical Collection Method Collection Time Receive d Time (Source) Location / / Volume Laterality Blood (Blood, 06/11/2021 9:02 AM 06/11/19 9:03 Venous) STUDIO HAND AM STUDIO HAND Moni Gross M.D. LAB BLOOD ADD-ON Performing Organization Address City/State/ZIP Code Phon e Number [facility]- [address] [place] [address] [place] [address] System in [place] [address] Antibody Screen, RBC (with reflex Antibody ID) (06/11/2021 9:02 AM STUDIO HAND) athologist Signature Antibody Screen NEG 06/11/2021 [facility] 6:18 PM STUDIO HAND Specimen Anatomical Collection Method Collection Time Receive d Time (Source) Location / / Volume Laterality Blood (Blood, 06/11/2021 9:02 AM 06/11/19 3:04 Venous) STUDIO HAND PM STUDIO HAND Moni Gross M.D. LAB BLOOD BANK TEST ORDERABL ES Performing Organization Address City/State/ZIP Code Phon e Number [facility]- [address] [place] [address] [facility] [place], [place] [id number] [place] [address] ABORh, RBC (06/11/2021 9:02 AM STUDIO HAND) athologist Signature ABO Group A 06/11/2021 6:18 AUST PM STUDIO HAND Rh Type POS 06/11/2021 6:18 AUST PM STUDIO HAND Specimen Anatomical Collection Method Collection Time Receive d Time (Source) Location / / Volume Laterality Blood (Blood, 06/11/2021 9:02 AM 06/11/19 3:04 Venous) STUDIO HAND PM STUDIO HAND Moni Gross M.D. LAB BLOOD BANK TEST ORDERABL ES Performing Organization Address City/[facility]/ZIP Code Phon e Number [facility]- [address] [place] [address] [facility] [place], [place] [address] [place] [address] documented in this encounter Visit Diagnoses Diagnosis Encounter For Supervision Of Other Veronica anthony Unspecified Trimester (HCC) documented in this encounter Additional Health Concerns Assessment Noted Time PHQ-9 Depression Total Score: 1 06/11/2021 10:22 AM CS T documented as of this encounter Care Teams Protective Signal Repairer Relationship Specialty Start Date End Date Unassigned, Pcp PCP - General Family Medicine 06/11/21 documented as of this encounter
--- OUTSIDE RECORDS SUMMARY | 2022-01-17 14:40 | XMS_ITS | Encounter Summary ---
:1990 Author Organization [facility] Address [address] [place] [address] Care Team Providers Name Role Phone Unavailable Primary Care Provider Unavailable Reason for Visit Reason Comments Nurse Visit nob ed/intake appt Encounter Details Date Type Department Care Team Description 05/26/2021 Virtual Visit Department of Moni Gross M.D. [address] [place] [address] Encounter For Obstetrics and Shannan Mora R.N. [address] [place] [address] Supervision Of Other Gynecology in Normal [place], [place] Unspecified Trimester [address], [place] [address] Social History Tobacco Use Types Packs/Day [...] or relatives? How often do you attend restorationist or Never 2020 uatsdin services? Do you belong to any clubs or No 05/22/2021 organizations such as restorationist groups, unions, fraternal or athletic groups, or [...] at Date Recorded Female 05/18/2021 7:19 PM PERMIT TECHNICIAN documented as of this encounter Patient [...] Material Provided Today: Beginnings: , , and BeTKendall [facility] brochure-[facility] IT TECHNICIAN documented in this encounter Progress Notes Shannan Mora R.N. - 05/26/2021 10:30 AM CST Consult conducted via real-time audio/video technology by Shannan Mora R.N. in [facility] to the patient in Patient's Home. episode opened-please see history for details. States is very active with exercise and weight lifting-has adjusted with . Advised should cause any back/abdominal discomfort or SOB. Questions about calcium requirement. Discussed and sent Source of Calcium brochure via portal. Discussed COVID 19 precautions: vaccination, good handwashing, social distance, masking. Encouraged to call with questions or concerns. IT TECHNICIAN documented in this encounter Plan of Treatment Not on filedocumented as of this encounter Results (ABNORMAL) Bacterial Culture, Aerobic + Susc, Urine (06/11/2021 9:20 AM PERMIT TECHNICIAN) Analysis Performed At Patho logist Time Signature Urine Culture Mixed 06/12/2021 [facility] hilda. (A) 9:12 AM PERMIT TECHNICIAN Specimen Anatomical Collection Method Collection Time Receive d Time (Source) Location / / Volume Laterality Urine (Urine, 06/11/2021 9:20 AM 06/11/19 2:06 Midstream) PERMIT TECHNICIAN PM PERMIT TECHNICIAN Comment: Specimen Source Site: Urine Moni Gross M.D. LAB MICROBIOLOGY - GENERAL O RDERABLES Performing Organization Address City/State/ZIP Code Phon e Number [facility]- [address] [place] [address] [place] [address] System [address] (ABNORMAL) Urinalysis with Microscopic if Indicated (06/11/2021 9:20 AM PERMIT TECHNICIAN) P athologist Signature Source Urine, 06/11/2021 [place] Urine, Clean 9:33 AM PERMIT TECHNICIAN Catch Clarity Cloudy (A) Clear 06/11/2021 [place] 9:33 AM PERMIT TECHNICIAN Color Yellow 06/11/2021 [place] 9:33 AM PERMIT TECHNICIAN Comment: ----REFERENCE VALUE---- Colorless Yellow Juanita Blood Negative Negative 06/11/2021 9:33 AM PERMIT TECHNICIAN [place] Nitrite Negative Negative 06/11/2021 9:33 AM PERMIT TECHNICIAN [place] Leukocyte Esterase Small (A) Negative 06/11/2021 9:33 AM CS T [place] Protein Negative mg/dL 06/11/2021 9:33 AM PERMIT TECHNICIAN [place] Comment: ----REFERENCE VALUE---- Negative Trace Glucose Negative Negative mg/dL 06/11/2021 9:33 AM PERMIT TECHNICIAN [place] Ketone Negative Negative mg/dL 06/11/2021 9:33 AM PERMIT TECHNICIAN OW AT Bilirubin Negative Negative 06/11/2021 9:33 AM PERMIT TECHNICIAN [facility] pH 7.0 5.0 - 8.0 06/11/2021 9:33 AM PERMIT TECHNICIAN [place] Specific [place] 1.006 1.001 - 1.035 06/11/2021 9:33 AM PERMIT TECHNICIAN [place] Urobilinogen 0.2 0.2 - 1.0 mg/dL 06/11/2021 9:33 AM CS T [place] Specimen Anatomical Collection Method Collection Time Receive d Time (Source) Location / / Volume Laterality Urine (Urine, 06/11/2021 9:20 AM 06/11/19 9:27 Clean Catch) PERMIT TECHNICIAN AM PERMIT TECHNICIAN Moni Gross M.D. LAB URINE ORDERABLES Performing Organization Address City/State/ZIP Code Phon e Number [facility]- [address] [place] [address] [place] [address] System in [place] [address] [place] [address] Syphilis Total Ab w/ Reflex, Serum (06/11/2021 9:02 AM PERMIT TECHNICIAN) [facility] g[facility] Method Time Signature Syphilis Nonreactive Nonreactive 06/14/2021 [facility] Total Ab w/ 3:47 PM PERMIT TECHNICIAN Reflex Comment: No serologic evidence of infection with T. pallidum (syphilis). ??Repeat testing may be cons idered in patients with suspected acute or primary syphilis in 2-4 weeks. For additional information on interpreta tion of the syphilis reverse algorithm and resul ts, see: [email or web address] df Specimen Anatomical Collection Method Collection Time Receive d Time (Source) Location / / Volume Laterality Blood (Blood, 06/11/2021 9:02 AM 06/14/19 1:54 Venous) PERMIT TECHNICIAN PM PERMIT TECHNICIAN Moni Gross M.D. LAB BLOOD ADD-ON Performing Organization Address City/[facility]/ZIP Code Phon e Number [facility] [address] [place], [place] [address] [place] [address] [place] [address] Laboratory Medicine and Pathology [address] MADDEN Rubella Antibodies, IgG (06/11/2021 9:02 AM PERMIT TECHNICIAN) athologist Signature Rubella Ab, Positive 06/12/2021 [facility] IgG, S 9:27 PM PERMIT TECHNICIAN Comment: Results suggest response to immunization or prior exposure to the virus. ----REFERENCE VALUE---- Vaccinated: Positive (>=1.0 AI) Unvaccinated: Negative (<=0.7 AI) Rubella IgG Antibody Index 1.9 06/12/2021 9: 27 PM PERMIT TECHNICIAN [facility] Specimen Anatomical Collection Method Collection Time Receive d Time (Source) Location / / Volume Laterality Blood (Blood, 06/11/2021 9:02 AM 06/11/19 3:36 Venous) PERMIT TECHNICIAN PM PERMIT TECHNICIAN Moni Gross M.D. LAB MICROBIOLOGY - BLOOD ORD ERABLES Performing Organization Address City/[facility] Phon e Number [facility]- [address] [place] [address] LAB [place] [phone] System in [address] HIV-1/-2 Ag and Ab Scrn, Plasma (06/11/2021 9:02 AM PERMIT TECHNICIAN) athologist Signature HIV Ag/Ab Negative Negative 06/12/2021 [facility] Scrn, 9:27 PM PERMIT TECHNICIAN P Comment: Negative result does not rule out HIV in fection. If exposure to HIV infection occurred <14 d ays ago, contact the laboratory to request additi on of HIV-1 RNA detection / quantification test. HIV-1 p24 Ag Scrn, P Negative Negative 06/12/2021 9:27 PM PERMIT TECHNICIAN [facility] Comment: Negative result does not rule out HIV in fection. If exposure to HIV infection occurred <14 d ays ago, contact the laboratory to request additi on of HIV-1 RNA detection / quantification test. HIV-1 Ab Scrn, P Negative Negative 06/12/2021 9:2 7 PM PERMIT TECHNICIAN [facility] Comment: Negative result does not rule out HIV in fection. If exposure to HIV infection occurred <14 d ays ago, contact the laboratory to request additi on of HIV-1 RNA detection / quantification test. HIV-2 Ab Scrn, P Negative Negative 06/12/2021 9:2 7 PM PERMIT TECHNICIAN [facility] Comment: Negative result does not rule out HIV in fection. If exposure to HIV infection occurred <14 d ays ago, contact the laboratory to request additi on of HIV-1 RNA detection / quantification test. Specimen Anatomical Collection Method Collection Time Receive d Time (Source) Location / / Volume Laterality Blood (Blood, 06/11/2021 9:02 AM 06/11/19 22 3:36 Venous) PERMIT TECHNICIAN PM PERMIT TECHNICIAN Moni Gross M.D. LAB MICROBIOLOGY - BLOOD ORD ERABLES Performing Organization Address City/[facility] Phon e Number [address] [phone] [place] [address] System in [address] HBs Antigen , Serum (06/11/2021 9:02 AM PERMIT TECHNICIAN) athologist Signature HBs Antigen Negative Negative 06/12/[address] [facility] , S 9:26 AM PERMIT TECHNICIAN Specimen Anatomical Collection Method Collection Time Receive d Time (Source) Location / / Volume Laterality Blood (Blood, 06/11/2021 9:02 AM 06/12/19 22 7:17 Venous) PERMIT TECHNICIAN AM PERMIT TECHNICIAN Moni Gross M.D. LAB MICROBIOLOGY - BLOOD ORD ERABLES Performing Organization Address City/State/ZIP Code Phon e Number [facility] [address] [place] [address] [facility] [place] [address] Laboratory Medicine and Pathology [address] MADDEN CBC without Differential (06/11/2021 9:02 AM PERMIT TECHNICIAN) athologist Signature Hemoglobin 13.4 11.6 - 06/11/2021 [place] 15.0 g/dL 9:11 AM PERMIT TECHNICIAN Hematocrit 39.4 35.5 - 06/11/2021 [place] 44.9 % 9:11 AM PERMIT TECHNICIAN Erythrocytes 4.40 3.92 - 06/11/2021 [place] 5.13 9:11 AM PERMIT TECHNICIAN x10(12)/L MCV 89.5 78.2 - 06/11/2021 [place] 97.9 fL 9:11 AM PERMIT TECHNICIAN RBC Distrib Width 12.7 12.2 - 06/11/2021 [place] 16.1 % 9:11 AM PERMIT TECHNICIAN Platelet Count 163 157 - 371 06/11/2021 [place] x10(9)/L 9:11 AM PERMIT TECHNICIAN Leukocytes 5.7 3.4 - 9.6 06/11/2021 [place] x10(9)/L 9:11 AM PERMIT TECHNICIAN Specimen Anatomical Collection Method Collection Time Receive d Time (Source) Location / / Volume Laterality Blood (Blood, 06/11/2021 9:02 AM 06/11/19 9:03 Venous) PERMIT TECHNICIAN AM PERMIT TECHNICIAN Moni Gross M.D. LAB BLOOD ADD-ON Performing Organization Address City/State/ZIP Code Phon e Number [facility]- [address] [place] [address] [facility] [place] [address] System in [place] [address] Antibody Screen, RBC (with reflex Antibody ID) (06/11/2021 9:02 AM PERMIT TECHNICIAN) athologist Signature Antibody Screen NEG 06/11/2021 AUST 6:18 PM PERMIT TECHNICIAN Specimen Anatomical Collection Method Collection Time Receive d Time (Source) Location / / Volume Laterality Blood (Blood, 06/11/2021 9:02 AM 06/11/19 3:04 Venous) PERMIT TECHNICIAN PM PERMIT TECHNICIAN Moni Gross M.D. LAB BLOOD BANK TEST ORDERABL ES Performing Organization Address City/State/ZIP Code Phon e Number [facility]- [address] [place] [address] [facility] [place] [address] [facility] [address] ABORh, RBC (06/11/2021 9:02 AM PERMIT TECHNICIAN) P athologist Signature ABO Group A 06/11/2021 6:18 AUST PM PERMIT TECHNICIAN Rh Type POS 06/11/2021 6:18 AUST PM PERMIT TECHNICIAN Specimen Anatomical Collection Method Collection Time Receive d Time (Source) Location / / Volume Laterality Blood (Blood, 06/11/2021 9:02 AM 06/11/19 22 3:04 Venous) PERMIT TECHNICIAN PM PERMIT TECHNICIAN Moni Gross M.D. LAB BLOOD BANK TEST ORDERABL ES Performing Organization Address City/State/ZIP Code Phon e Number [facility]- [address] [place] [address] [facility] [place] [address] [facility] [address] documented in this encounter Visit Diagnoses Diagnosis Encounter For Supervision Of Other Veronica l Unspecified Trimester (HCC) documented in this encounter
--- OUTSIDE RECORDS SUMMARY | 2022-01-17 14:40 | XMS_ITS | Clinical Summary ---
:1990 Author Organization [facility] [place] [address] Care Team Providers Name Role Phone Fanta Sarmiento MD Primary Care Provider Allergies Active Allergy Reactions Severity Noted Date Comments Neomycin-Polymyxin B-Dexameth Edema, Erythema 07/05/19 14 Medications No known medications Active Problems Problem Noted Date Family planning 04/09/2015 Myopia 08/24/2012 Comments Yes Resolved Problems Problem Noted Date Resolved Date Supervision of normal first 07/23/2011 Overview: Boy by US GBS neg Major depression, single episode 03/06/2009 012 Immunizations Name Administration Dates Next Due DTP 09/12/1997, 09/16/1993, 01/19/1993, 1992, 1992, 1992 DTP-HIB 09/16/1993, 01/19/1993, 1992 DTaP 09/12/1997 HIB HbOC (HibTITER) 1992, 1992 HIB PRP-D (ProHIBIT) 01/19/1993, 1992, 1992, 1992 Hepatitis A (Adult) 09/15/2015 Hepatitis B (Peds) 12/21/1996, 07/23/1996, 06/22/1996 Human Papilloma Virus Vaccine 07/31/2008, 03/26/2008, 2007 Inactivated Polio Vaccine 09/12/1997, 06/22/1996, 1992 , 1992 Influenza A (H1N1), Inactivated (Age 1002/21/2020 >=3 Years) Influenza, IIV3 (Age 6-35 mos) 03/05/2011 Influenza, IIV3 (Age >=3 years) 03/22/2013, 02/02/2012, 02/20 Influenza, IIV4 04/05/2018, 03/03/2015, 03/14/2014 MMR 06/13/2002, 09/16/1993, 1992 Oral Polio Vaccine 09/12/1997, 06/22/1993, 1992, 1992 Td, Preservative Free (age >= 7 04/09/2015 Years) Tdap 12/29/2004 Typhoid (injectable) 09/15/2015 Family History Medical History Relation Name Comments Good Health Brother 2 Good Health Father Pulmonary fibrosis Maternal Grandmother oxygen Good Health Mother Leukemia Paternal Grandfather Good Health Sister 2 Relation Name Status Comments Brother 1 Alive Brother 2 Father Alive Maternal Grandmother Mother Alive Paternal Grandfather Sister 1 Alive Sister 2 Son Alive Social History Tobacco Use Types Packs/Day Years Used Date Never Smoker Smokeless Tobacco: Never Used Tobacco Cessation: Counseling Given: Yes Alcohol Use Standard Drinks/Week Comments Not Currently 0 (1 standard drink = 0.6 oz pure alcoho l) occasional Comments Yes Sex Assigned at Date Recorded Not on file Obstetrics History Para Term AB IAB SAB Ectopic Multiple Living Live Births 3 1 1 0 1 0 1 0 0 1 1 Date Outcome GA Total Labor/2nd/3rd Weight Sex Delivery Anes PTL Ariane A 1 A5 Name Clin Labor 03/07 Term 38w 18h 00m/ 3.35 kg M Vag Rosalba Ca rs 0d (7 lb 6 ng n oz) Comments: System Generated. Please review and update details. 06/24/2014 SAB Comments: System Generated. Please review and update details. Current OB Episode Summary Episode Dates Estimated Date of Pregravid Weight TWG (As of ) Delivery 10/12/2021 - Present Unknown (01/17/2022) Last Filed Vital Signs Vital Sign Reading Time Taken Comments Blood Pressure 102/68 06/09/2020 3:27 PM SHELL FREEZING MACHINE OPERATOR Pulse 72 06/09/2020 3:27 PM SHELL FREEZING MACHINE OPERATOR Temperature 36.1 ??C (97 ??F) 04/05/2018 11:33 AM SHELL FREEZING MACHINE OPERATOR Respiratory Rate 12 08/01/2015 9:31 AM SHELL FREEZING MACHINE OPERATOR Oxygen Saturation 100% 04/05/2018 11:33 AM SHELL FREEZING MACHINE OPERATOR Inhaled Oxygen Concentration - - Weight 78.1 kg (172 lb 3.2 oz) 06/09/2020 3:27 PM SHELL FREEZING MACHINE OPERATOR Height 170.2 cm (5' 7) 06/09/2020 3:27 PM SHELL FREEZING MACHINE OPERATOR Body Mass Index 26.97 06/09/2020 3:27 PM SHELL FREEZING MACHINE OPERATOR Plan of Treatment Upcoming Encounters Date Type Specialty Care Team Description 01/20/2022 Hospital Encounter Andrzej Gross MD [address] [place], [place] [address] (Wo rk) Health Maintenance Due Date Last Done Comments Hepatitis C screening for age 0106/21/2010 18-79 COVID-19 vaccine series (2 - 09/11/2020 08/21/2020 Pfizer series) BMI (ht and wt on same day) for 06/09/2021 06/09/2020, 01/22, age 18+ 04/05/2018, Additional history exists Depression screening for age 12+ 06/09/2021 06/09/2020, , 08/01/2015 Influenza for age 9-49 01/21/2022 02/21/2020, 04/05/2018, 03/03/2015, Additional history exists Pap test for age 21-65 02/14/2022 02/14/2019, 08/22/2013, 08/28/2009 Tetanus booster 04/09/2025 04/09/2015, 12/29/2004 Tdap Completed 12/29/2004 Results Not on filefrom Last 3 Months Insurance Payer Benefit Plan / Subscriber ID Effective Dates Phone Addre ss Type Group MEDICA MEDICA ESSENTIAL [id number] 2013-Present [address] [address] [place] [address] Дмитрий,Shaye L Personal/Famil Self 1990 [address] (Home) [place] [id number] Care Teams Straddle Truck Operator Relationship Specialty Start Date End Date Fanta Sarmiento MD PCP - General 12/19/07 [address] [place] [address]
--- OUTSIDE RECORDS SUMMARY | 2022-01-17 14:40 | XMS_ITS | Encounter Summary ---
:1990 Author Organization [facility] Address [address] [place] [address] Care Team Providers Name Role Phone Unassigned, Pcp Primary Care Provider Unavailable Reason for Visit Reason Comments Routine Visit No concerns. Outpatient (Routine) - Closed Specialty Diagnoses / Procedures Referred By Contact Refer red To Contact Family Medicine Moni Gross M. D. [facility] Region [address] [place] [address] Referral ID Status Reason Start Date Expiration Date Visits Requ ested Visits Authorized [id number] Closed 06/11/2021 06/11/2022 1 1 Encounter Details Date Type Department Care Team Description 07/13/2021 Routine Department of Moni Wallis Medicine, Aria Barr M.D. Other Normal Clinic, in [facility] [address] [place], [place] Trimester (Primary [address] [address] Dx) [place], [place] [phone] [address] (Work) [phone] Social History Tobacco Use Types Packs/Day Years [...] or relatives? How often do you attend scientology or Never 2020 anglican services? Do you belong to any clubs or No 05/22/2021 organizations such as scientology groups, unions, fraExacter or athletic groups, or school groups? How [...] or slept in a chcf (including now)? Education Answer Date Recorded What is the highest level of school Bachelor's degree (e.g., BA, AB, 05/22/2021 you have completed or the highest BS) degree you have received? Sex Assigned at Date Recorded Female 05/18/2021 7:19 PM STILL PUMP OPERATOR documented as of this encounter Last Filed Vital Signs Vital Sign Reading Time Taken Comments Blood Pressure - - Pulse - - Temperature 36.4 ??C (97.6 ??F) 07/13/2021 11:32 AM STILL PUMP OPERATOR Respiratory Rate 17 07/13/2021 11:32 AM STILL PUMP OPERATOR Oxygen Saturation - - Inhaled Oxygen Concentration - - Weight 83.6 kg (184 lb 4.9 oz) 07/13/2021 11:32 AM STILL PUMP OPERATOR Height 173 cm (5' 8.11) 07/13/2021 11:32 AM STILL PUMP OPERATOR Body Mass Index 27.93 07/13/2021 11:32 AM STILL PUMP OPERATOR documented in this encounter Progress Notes [...] behalf by Monique Esposito, a trained medical safety director. The creation of this record isbased on the scribe remotely listening to the visit and the provider's statements to them. This document has been checked and approved by the attending provider. L PUMP OPERATOR documented in this encounter Plan of Treatment Not on filedocumented as of this encounter Visit Diagnoses Diagnosis Examination Other Normal Pregna ncy Second Trimester (HCC) - Primary documented in this encounter Additional Health Concerns Assessment Noted Time PHQ-9 Depression Total Score: 1 06/11/2021 10:22 AM CS T documented as of this encounter Care Teams Gauge And Instrument Inspector Relationship Specialty Start Date End Date Unassigned, Pcp PCP - General Family Medicine 06/11/21 documented as of this encounter
--- OUTSIDE RECORDS SUMMARY | 2022-01-17 14:40 | XMS_ITS | Encounter Summary ---
:1990 Author Organization [facility] Address [address] [place] [address] Care Team Providers Name Role Phone Unassigned, Pcp Primary Care Provider Unavailable Reason for Referral Outpatient (Routine) - Closed Specialty Diagnoses / Procedures Referred By Contact Refer red To Contact Family Moni Arroyo M. D. [facility] [address] [address] Referral ID Status Reason Start Date Expiration Date Visits Requ ested Visits Authorized [id number] Closed 09/28/2021 09/28/2022 1 1 Reason for Visit Reason Comments Routine Visit No concerns Outpatient (Routine) - Closed Specialty Diagnoses / Procedures Referred By Contact Refer red To Contact Moni Arias M. D. [facility] [address] [place] [address] Referral ID Status Reason Start Date Expiration Date Visits Requ ested Visits Authorized [id number] Closed 09/01/2021 09/01/2022 1 1 Encounter Details Date Type Department Care Team Description 09/28/2021 Routine Department of Moni Wallis MedicineAria M.D. Other Normal Clinic, in [facility] [address] [place], [place] Trimester (HCC) [address] [address] (Primary Dx) [place] [phone] [address] (Work) [phone] Social History Tobacco Use Types Packs/Day Years [...] do you attend taoism or Never 2020 catholic services? Do you belong to any clubs [...] place to sleep or slept in a prison (including now)? Education Answer Date Recorded What is the highest level of school Bachelor's degree (e.g., BA, AB, 05/22/2021 you have completed or the highest BS) degree you have received? Sex Assigned at Date Recorded Female 05/18/2021 7:19 PM VIDEO OPERATOR documented as of this encounter Last Filed Vital Signs Vital Sign Reading Time Taken Comments Blood Pressure 117/73 09/28/2021 7:08 AM CDT Pulse - - Temperature - - Respiratory Rate - - Oxygen Saturation - - Inhaled Oxygen Concentration - - Weight 95.7 kg (210 lb 15.7 oz) 09/28/2021 7:08 AM CDT Height - - Body Mass Index 31.98 07/13/2021 11:32 AM VIDEO OPERATOR documented in this encounter Progress Notes [...] Name Type Priority Associated Diagnoses Order S [facility] Medicine Outpatient Referral Routine Expec axel: office visit 10/29/2021 (clinic) (Approximate), Expires: 12/29/2022 documented as of this encounter Results Hemoglobin (10/29/2021 8:28 AM CDT) athologist Signature Hemoglobin 13.1 11.6 - 15.0 10/29/2021 [place] g/dL 8:48 AM CDT Specimen Anatomical Collection Method Collection Time Receive d Time (Source) Location / / Volume Laterality Blood (Blood, 10/29/2021 8:28 AM 10/30/19 8:45 Venous) CDT AM CDT Moni Gross M.D. LAB BLOOD ADD-ON Performing Organization Address City/State/ZIP Code Phon e Number [facility]- [address] [place] [address] [place] [address] System in [place] [address] Glucose Tolerance Test, 1 hour (10/29/2021 8:28 [...] Organization Address City/State/ZIP Code Phon e Number [facility]- [address] [place] [address] [place] [address] System in [place] [address] documented in this encounter Visit Diagnoses Diagnosis Examination Other Normal Pregna ncy Second Trimester (HCC) - Primary documented in this encounter Additional Health Concerns Assessment Noted Time PHQ-9 Depression Total Score: 1 06/11/2021 10:22 AM CS T documented as of this encounter Care Teams Mailroom Supervisor Relationship Specialty Start Date End Date Unassigned, Pcp PCP - General Family Medicine 06/11/21 documented as of this encounter
--- OUTSIDE RECORDS SUMMARY | 2022-01-17 14:41 | XMS_ITS | Encounter Summary ---
:1990 Author Organization [facility] Address [address] [place] [address] Care Team Providers Name Role Phone Unavailable Primary Care Provider Unavailable Reason for Referral Specialty Diagnoses / Procedures Referred By Contact Refer red To Contact [address] [address] Referral ID Status Reason Start Date Expiration Date Visits Requ ested Visits Authorized Reason for Visit Appointment Request (Routine) - Closed Specialty Diagnoses / Procedures Referred By Contact Refer red To Contact Family Medicine Referral ID Status Reason Start Date Expiration Date Visits Requ ested Visits Authorized [id number] Closed 08/15/2020 08/15/2021 1 1 Encounter Details Date Type Department Care Team Description 08/21/[address] [facility] er For COVID-19 Medicine, [facility] Vaccine Immunization [facility] (Prim hue Dx) [address] [address] Social History Tobacco Use Types Packs/Day Years [...] do you attend moravian or Never 2020 confucianism services? Do you [...] or slept in a custodial (including now)? Sex Assigned at Date Recorded Female 05/18/2021 7:19 PM CHARGE NURSE documented as of this encounter Plan of Treatment Scheduled Referrals Name Type Priority Associated Diagnoses Order S tiffany Covid immunization Outpatient Referral Routine Encounter For E xpected: office visit COVID-19 Vaccine 09/11/2020, Subsequent; 21 days Immunization Expires: 08/22/2023 documented as of this encounter Visit Diagnoses Diagnosis Encounter For COVID-19 Vaccine Immunizat ion - Primary documented in this encounter
--- OUTSIDE RECORDS SUMMARY | 2022-01-17 15:55 | XMS_ITS | Clinical Summary ---
:1990 Author Organization [email or web address] [facility] [place] [address] Care Team Providers Name Role Phone Fanta [...] Comments Blood Pressure 102/68 06/09/2020 3:27 PM EMERGENCY PLANNING AND RESPONSE MANAGER Pulse 72 06/09/2020 3:27 PM EMERGENCY PLANNING AND RESPONSE MANAGER Temperature 36.1 ??C (97 ??F) 04/05/2018 11:33 AM EMERGENCY PLANNING AND RESPONSE MANAGER Respiratory Rate 12 08/01/2015 9:31 AM EMERGENCY PLANNING AND RESPONSE MANAGER Oxygen Saturation 100% 04/05/2018 11:33 AM EMERGENCY PLANNING AND RESPONSE MANAGER Inhaled Oxygen Concentration - - Weight 78.1 kg (172 lb 3.2 oz) 06/09/2020 3:27 PM EMERGENCY PLANNING AND RESPONSE MANAGER Height 170.2 cm (5' 7) 06/09/2020 3:27 PM EMERGENCY PLANNING AND RESPONSE MANAGER Body Mass Index 26.97 06/09/2020 3:27 PM EMERGENCY PLANNING AND RESPONSE MANAGER Plan of Treatment Upcoming Encounters Date Type Specialty Care Team Description 01/20/2022 Hospital Encounter Andrzej Gross MD [address] [place], [place] [phone] (Wo rk) Health Maintenance [...] Addre ss Type Group MEDICA MEDICA ESSENTIAL [id number] 2013-Present [address] [address] [place] [address] Дмитрий,Shaye L Personal/Famil Self 1990 [address] (Home) [place]NDEZ [address] Care Teams Elementary Principal Relationship Specialty Start Date End Date Fanta Sarmiento MD PCP - General 12/19/07 [address] [place] [address]
--- OUTSIDE RECORDS SUMMARY | 2022-01-17 15:55 | XMS_ITS | Clinical Summary ---
:1990 Author Organization [facility] Address [address] [place] [address] Care Team Providers Name Role Phone Unassigned, Pcp Primary Care Provider Unavailable Source Comments Patient records contain information from all sites at [facility]. For routine questions regarding patient records, call [phone] during business hours, M-F 8:00 AM - 5:00 PM Central Time. Record requests for emergency care only can be directed to [phone] at any time.[facility] Allergies Active Allergy Reactions Severity Noted Date [...] Relation Name Status Comments Brother Mother Son Olivreio Alive Social History Tobacco Use Types Packs/Day [...] or relatives? How often do you attend sikh or Never 2020 samaritan services? Do you belong to any clubs or No 05/22/2021 organizations such as sikh groups, unions, [employer] Corp or athletic groups, or school groups? How [...] at Date Recorded Female 05/18/2021 7:19 PM GERMAN TEACHER Last Filed Vital Signs Vital Sign Reading [...] 173 cm (5' 8.11) 07/13/2021 11:32 AM GERMAN TEACHER Body Mass Index 33.01 07/13/2021 11:32 AM GERMAN TEACHER Plan of Treatment Health Maintenance Due Date [...] Organization Address City/State/ZIP Code Phon e Number [facility]- [address] [place] [address] [place] [address] System in [place] [address] Hemoglobin (10/29/2021 8:28 AM CDT) athologist Signature Hemoglobin 13.1 11.6 - 15.0 10/29/2021 [place] g/dL 8:48 AM CDT Specimen Anatomical Collection Method Collection Time Receive d Time (Source) Location / / Volume Laterality Blood (Blood, 10/29/2021 8:28 AM 10/30/19 8:45 Venous) CDT AM CDT Moni Gross M.D. LAB BLOOD ADD-ON Performing Organization Address City/State/ZIP Code Phon e Number [facility]- [address] [place] [address] [place] [address] System in [place] [address] from Last 3 Months Insurance Payer Benefit Plan / Subscriber ID Effective Dates Phone Addre ss Type Group [employer] [place] [id number] 2021-Presen [phone] [address] [address] PPO BLUE SHIELD t [address] [place] [address] Advance Directives For more information, please contact: [phone] Documents on File Type Date Recorded Patient Esthetician Explanati on Advance Directives 01/12/2022 11:30 AM Caleb Choe HCPOA/ADVOCATE/AGENT/REP RESENTATIVE/SURR OGATE Healthcare Agents on File Name Relationship Healthcare Agent Relationship Co mmunication Caleb Rutledge Spouse Health Care Agent [email or web address] Tanya Дмитрий Mother [facility] Health Care Agent Care Teams Eco Industrial Development Consultant Relationship Specialty Start Date End Date Unassigned, Pcp PCP - General Family Medicine 06/11/21
--- OUTSIDE RECORDS SUMMARY | 2022-01-17 15:56 | XMS_ITS | Encounter Summary ---
:1990 Author Organization [facility] Address [address] [place] [address] Care Team Providers Name Role Phone Unassigned, Pcp Primary Care Provider Unavailable Reason for Referral Outpatient (Routine) - Closed Specialty Diagnoses / Procedures Referred By Contact Refer red To Contact Family Moni Arroyo M. D. [facility] [address] [address] Referral ID Status Reason Start Date Expiration Date Visits Requ ested Visits Authorized [id number] Closed 09/28/2021 09/28/2022 1 1 Reason for Visit Reason Comments Routine Visit No concerns Outpatient (Routine) - Closed Specialty Diagnoses / Procedures Referred By Contact Refer red To Contact Moni Arias M. D. [facility] [address] [place] [address] Referral ID Status Reason Start Date Expiration Date Visits Requ ested Visits Authorized [id number] Closed 09/01/2021 09/01/2022 1 1 Encounter Details Date Type Department Care Team Description 09/28/2021 Routine Department of Moni Wallis MedicineAria M.D. Other Normal Clinic, in [facility] [address] [place], [place] Trimester (HCC) [address] [address] (Primary Dx) MADELYN RHODES [phone] [address] (Work) [phone] Social History Tobacco Use Types Packs/Day Years [...] or relatives? How often do you attend jehovah's witness or Never 2020 synagogue services? Do you belong to any clubs or No 05/22/2021 organizations such as jehovah's witness groups, unions, fraternal or athletic groups, or [...] at Date Recorded Female 05/18/2021 7:19 PM STAGE DIRECTOR documented as of this encounter Last Filed Vital Signs Vital Sign Reading Time Taken Comments Blood Pressure 117/73 09/28/2021 7:08 AM CDT Pulse - - Temperature - - Respiratory Rate - - Oxygen Saturation - - Inhaled Oxygen Concentration - - Weight 95.7 kg (210 lb 15.7 oz) 09/28/2021 7:08 AM CDT Height - - Body Mass Index 31.98 07/13/2021 11:32 AM STAGE DIRECTOR documented in this encounter Progress Notes Moni [...] Organization Address City/State/ZIP Code Phon e Number [facility]- [address] [place] [address] [place] [address] System in [place] [address] Glucose Tolerance Test, 1 [...] Organization Address City/State/ZIP Code Phon e Number [facility]- [address] [place] [address] [place] [address] System in [place] [address] documented in this encounter Visit Diagnoses Diagnosis Examination Other Normal Pregna ncy Second Trimester (HCC) - Primary documented in this encounter Additional Health Concerns Assessment Noted Time PHQ-9 Depression Total Score: 1 06/11/2021 10:22 AM CS T documented as of this encounter Care Teams Polarity Tester Relationship Specialty Start Date End Date Unassigned, Pcp PCP - General Family Medicine 06/11/21 documented as of this encounter
--- OUTSIDE RECORDS SUMMARY | 2022-01-17 15:56 | XMS_ITS | Encounter Summary ---
:1990 Author Organization [facility] Address [address] [place] [address] Care Team Providers Name Role Phone Unassigned, [...] do you attend christian or Never 2020 hindu services? 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
--- OUTSIDE RECORDS SUMMARY | 2022-01-17 15:56 | XMS_ITS | Encounter Summary ---
:1990 Author Organization [facility] Address [address] [place] [address] Care Team Providers Name Role Phone Unassigned, Pcp Primary Care Provider Unavailable Reason for Visit Reason Comments Routine Visit No concerns. Outpatient (Routine) - Closed Specialty Diagnoses / Procedures Referred By Contact Refer red To Contact Family Medicine Moni Gross M. D. [facility] Region [address] [place] [address] Referral ID Status Reason Start Date Expiration Date Visits Requ ested Visits Authorized [id number] Closed 06/11/2021 06/11/2022 1 1 Encounter Details Date Type Department Care Team Description 07/13/2021 Routine Department of Moni Wallis Medicine, Aria Barr M.D. Other Normal Clinic, in [facility] [address] [place], [place] Trimester (Primary [address] [address] Dx) [place], [place] [phone] [address] (Work) [phone] Social History Tobacco Use Types Packs/Day Years [...] or relatives? How often do you attend jew or Never 2020 latter-day services? Do you belong to any clubs or No 05/22/2021 organizations such as jew groups, unions, fraBass Manager or athletic groups, or school groups? How [...] place to sleep or slept in a snf (including now)? Education Answer Date Recorded What is the highest level of school Bachelor's degree (e.g., BA, AB, 05/22/2021 you have completed or the highest BS) degree you have received? Sex Assigned at Date Recorded Female 05/18/2021 7:19 PM SILK SCREEN PRINTER MACHINE documented as of this encounter Last Filed Vital Signs Vital Sign Reading Time Taken Comments Blood Pressure - - Pulse - - Temperature 36.4 ??C (97.6 ??F) 07/13/2021 11:32 AM SILK SCREEN PRINTER MACHINE Respiratory Rate 17 07/13/2021 11:32 AM SILK SCREEN PRINTER MACHINE Oxygen Saturation - - Inhaled Oxygen Concentration - - Weight 83.6 kg (184 lb 4.9 oz) 07/13/2021 11:32 AM SILK SCREEN PRINTER MACHINE Height 173 cm (5' 8.11) 07/13/2021 11:32 AM SILK SCREEN PRINTER MACHINE Body Mass Index 27.93 07/13/2021 11:32 AM SILK SCREEN PRINTER MACHINE documented in this encounter Progress Notes Moni [...] their behalf by Monique Esposito, a trained program medical director. The creation of this record isbased on the scribe remotely listening to the visit and the provider's statements to them. This document has been checked and approved by the attending provider. SCREEN PRINTER MACHINE documented in this encounter Plan of Treatment Not on filedocumented as of this encounter Visit Diagnoses Diagnosis Examination Other Normal Pregna ncy Second Trimester (HCC) - Primary documented in this encounter Additional Health Concerns Assessment Noted Time PHQ-9 Depression Total Score: 1 06/11/2021 10:22 AM CS T documented as of this encounter Care Teams Getter Filler Relationship Specialty Start Date End Date Unassigned, Pcp PCP - General Family Medicine 06/11/21 documented as of this encounter
--- OUTSIDE RECORDS SUMMARY | 2022-01-17 15:56 | XMS_ITS | Encounter Summary ---
:1990 Author Organization [facility] Address [address] [place] [address] Care Team Providers Name Role Phone Unassigned, Pcp Primary Care Provider Unavailable Encounter Details Date Type Department Care Team Description 06/11/2021 Hospital Encounter Department of Moni Gross For Laboratory Medicine Liz Barr Supervision Of Other in [place], [address] Normal [place], [place] Unspecified [address] [address] Trimester [place], [place] [phone] [address] (Work) [phone] Social History Tobacco Use Types Packs/Day Years [...] or relatives? How often do you attend bahai or Never 2020 orthodox services? Do you belong to any clubs or No 05/22/2021 organizations such as bahai groups, unions, fraternal or athletic groups, or [...] at Date Recorded Female 05/18/2021 7:19 PM RESIDENCE HALL DIRECTOR documented as of this encounter Medications at [...] For Resul ts for this MICROSCOPIC IF RESIDENCE HALL DIRECTOR Supervision Of Other proce dure are in INDICATED, U Normal the results Unspecified section. Trimester [place] URINALYSIS AUTO Routine 06/11/2021 9:20 AM Res ults for this WO MICRO RESIDENCE HALL DIRECTOR procedure are i n the results section. BACTERIAL CULTURE, Routine 06/11/2021 9:20 AM Encounter For Re sults for this AEROBIC + SUSC, RESIDENCE HALL DIRECTOR Supervision Of Other proc edure are in URINE Normal the results Unspecified section. Trimester documented in this encounter Results (ABNORMAL) Microscopic Automated (06/11/2021 9:20 AM RESIDENCE HALL DIRECTOR) Analysis Performed At Patho logist Time Signature White Blood 11-20 (A) /hpf 06/11/2021 [facility] Cells 9:38 AM RESIDENCE HALL DIRECTOR Comment: ----REFERENCE VALUE---- Males: 0-3 Females: 0-10 Unknown: 0-10 Red Blood Cells 3-10 (A) 0 - 2 /hpf 06/11/2021 9:38 AM RESIDENCE HALL DIRECTOR [facility] Dysmorphic Red Blood Cells <=25 <=25 % 06/11/2021 9: 38 AM RESIDENCE HALL DIRECTOR [facility] Hyaline Casts 1-3 /lpf 06/11/2021 9:38 AM RESIDENCE HALL DIRECTOR O[place] T Squamous Cells 11-20 /hpf 06/11/2021 9:38 AM RESIDENCE HALL DIRECTOR [place] [facility] Bacteria Present (A) None Seen 06/11/2021 9:38 AM RESIDENCE HALL DIRECTOR [facility] Specimen Anatomical Collection Method Collection Time Receive d Time (Source) Location / / Volume Laterality Urine 06/11/2021 9:20 AM 9:27 RESIDENCE HALL DIRECTOR AM RESIDENCE HALL DIRECTOR Moni Gross M.D. LAB URINE ORDERABLES Performing Organization Address City/[facility]/ZIP [facility] Phon e Number [facility]- [address] [place] [address] [facility] [place] [address] System in [place] [address] [facility] (ABNORMAL) Bacterial Culture, Aerobic + Susc, Urine (06/11/2021 9:20 AM RESIDENCE HALL DIRECTOR) Analysis [facility]formed At [facility] Time Signature Urine Culture Mixed 06/12/2021 TO hilda. (A) 9:12 AM RESIDENCE HALL DIRECTOR Specimen Anatomical Collection Method Collection Time Receive d Time (Source) Location / / Volume Laterality Urine (Urine, 06/11/2021 9:20 AM 06/11/19 2:06 Midstream) RESIDENCE HALL DIRECTOR PM RESIDENCE HALL DIRECTOR Comment: Specimen Source Site: Urine Moni Gross M.D. LAB MICROBIOLOGY - GENERAL O RDERABLES Performing Organization Address City/[facility]/ZIP Code Phon e Number [facility]- [address] [place] [address] [place] [address] (ABNORMAL) Urinalysis with Microscopic if Indicated (06/11/2021 9:20 AM RESIDENCE HALL DIRECTOR) P athologist Signature Source Urine, 06/11/2021 [facility] Urine, Clean 9:33 AM RESIDENCE HALL DIRECTOR Catch Clarity Cloudy (A) Clear 06/11/2021 [facility] 9:33 AM RESIDENCE HALL DIRECTOR Color Yellow 06/11/2021 [place] 9:33 AM RESIDENCE HALL DIRECTOR Comment: ----REFERENCE VALUE---- Colorless Yellow Juanita Blood Negative Negative 06/11/2021 9:33 AM RESIDENCE HALL DIRECTOR [facility] Nitrite Negative Negative 06/11/2021 9:33 AM RESIDENCE HALL DIRECTOR [facility] Leukocyte Esterase Small (A) Negative 06/11/2021 9:33 AM CS T [facility] Protein Negative mg/dL 06/11/2021 9:33 AM RESIDENCE HALL DIRECTOR [facility] Comment: ----REFERENCE VALUE---- Negative Trace Glucose Negative Negative mg/dL 06/11/2021 9:33 AM RESIDENCE HALL DIRECTOR [facility] Ketone Negative Negative mg/dL 06/11/2021 9:33 AM RESIDENCE HALL DIRECTOR [facility] Bilirubin Negative Negative 06/11/2021 9:33 AM RESIDENCE HALL DIRECTOR [facility] pH 7.0 5.0 - 8.0 06/11/2021 9:33 AM RESIDENCE HALL DIRECTOR [facility] Specific [place] 1.006 1.001 - 1.035 06/11/2021 9:33 AM RESIDENCE HALL DIRECTOR [facility] Urobilinogen 0.2 0.2 - 1.0 mg/dL 06/11/2021 9:33 AM CS T [facility] Specimen Anatomical Collection Method Collection Time Receive d Time (Source) Location / / Volume Laterality Urine (Urine, 06/11/2021 9:20 AM 06/11/19 9:27 Clean Catch) RESIDENCE HALL DIRECTOR AM RESIDENCE HALL DIRECTOR Moni Gross M.D. LAB URINE ORDERABLES Performing Organization Address City/State/ZIP Code Phon e Number [facility]- [address] [place] [address] [facility] [place] [address] System in [place] [address] documented in this encounter Visit Diagnoses Diagnosis Encounter For Supervision Of Other Veronica l Unspecified Trimester (HCC) documented in this encounter Additional Health Concerns Assessment Noted Time PHQ-9 Depression Total Score: 1 06/11/2021 10:22 AM CS T documented as of this encounter Care Teams Road Engineer Freight Relationship Specialty Start Date End Date Unassigned, Pcp PCP - General Family Medicine 06/11/21 documented as of this encounter
--- OUTSIDE RECORDS SUMMARY | 2022-01-17 15:56 | XMS_ITS | Encounter Summary ---
:1990 Author Organization [facility] Address [address] [place] [address] Care Team Providers Name Role Phone Unassigned, Pcp Primary Care Provider Unavailable Reason for Referral Outpatient (Routine) - Closed Specialty Diagnoses / Procedures Referred By Contact Refer red To Contact Family Medicine Moni Gross M. D. [facility] [address] [address] Referral ID Status Reason Start Date Expiration Date Visits Requ ested Visits Authorized [id number] Closed 06/11/2021 06/11/2022 1 1 HOUSEMAN Reason for Visit Reason Comments Initial Visit Ultrasound Results Outpatient (Routine) - Closed Specialty Diagnoses / Procedures Referred By Contact Refer red To Contact Family Medicine Diagnoses Encounter For Supervision Of Other Normal Unspecified Trimester (HCC) Moni Gross M.D. [facility] Region [address] [place] [address] Referral ID Status Reason Start Date Expiration Date Visits Requ ested Visits Authorized [id number] Closed 05/18/2021 05/18/2022 1 1 Encounter Details Date Type Department Care Team Description 06/11/2021 Routine Department of Moni Wallisunter For MedicineAria M.D. Supervision Of Other Clinic, in [place], [address] Normal [place] MADELYN Rhodes Unspecified Trimester [address] [address] MADELYN RHODES [phone] [address] (Work) [phone] Social History Tobacco Use Types Packs/Day Years [...] or relatives? How often do you attend muslim or Never 2020 congregation services? Do you belong to any clubs or No 05/22/2021 organizations such as muslim groups, unions, fraternal or athletic groups, or [...] at Date Recorded Female 05/18/2021 7:19 PM WAREHOUSEMAN documented as of this encounter Last Filed Vital Signs Vital Sign Reading Time Taken Comments Blood Pressure 108/70 06/11/2021 10:22 AM WAREHOUSEMAN Pulse - - Temperature - - Respiratory Rate - - Oxygen Saturation - - Inhaled Oxygen Concentration - - Weight 80.8 kg (178 lb 2.1 oz) 06/11/2021 10:22 AM WAREHOUSEMAN Height - - Body Mass Index - [...] and Family: Twice a week ??? Attends Christianity Services: Never ??? Active Member of Clubs [...] their behalf by Monique Esposito, a trained biomedical equipment specialist. The creation of this record isbased on [...] blood/lymph issues: Yes No urinary/reproductive issues: Yes HOUSEMAN documented in this encounter Plan of Treatment Scheduled Referrals Name Type Priority Associated Diagnoses Order [facility] Medicine Outpatient Referral Routine Expec axel: office visit 07/12/2021 (clinic) (Approximate), Expires: 09/09/2022 documented as of this encounter Visit Diagnoses Diagnosis Encounter For Supervision Of Other Veronica anthony Unspecified Trimester (HCC) documented in this encounter Additional Health Concerns Assessment Noted Time PHQ-9 Depression Total Score: 1 06/11/2021 10:22 AM CS T documented as of this encounter Care Teams Medical Advisor Relationship Specialty Start Date End Date Unassigned, Pcp PCP - General Family Medicine 06/11/21 documented as of this encounter
--- OUTSIDE RECORDS SUMMARY | 2022-01-17 15:56 | XMS_ITS | Encounter Summary ---
:[address] [facility] Address [address] [place] [address] Care Team Providers Name Role Phone Unavailable Primary Care Provider Unavailable Reason for Referral Specialty Diagnoses / Procedures Referred By Contact Refer red To Contact [address] [address] Referral ID Status Reason Start Date Expiration Date Visits Requ ested Visits Authorized Reason for Visit Appointment Request (Routine) - Closed Specialty Diagnoses / Procedures Referred By Contact Refer red To Contact Family Medicine Referral ID Status Reason Start Date Expiration Date Visits Requ ested Visits Authorized [id number] Closed 08/15/2020 08/15/2021 1 1 Encounter Details Date Type Department Care Team Description 08/21/[address] [facility] er For COVID-19 Medicine, [facility] Vaccine Immunization [facility] (Prim hue Dx) [address] [address] Social History Tobacco Use Types Packs/Day [...] or relatives? How often do you attend protestant or Never 2020 pentecostal services? Do you belong to any clubs or No 05/22/2021 organizations such as protestant groups, unions, fraternal or athletic groups, or [...] or slept in a longterm (including now)? Sex Assigned at Date Recorded Female 05/18/2021 7:19 PM STONECUTTER ASSISTANT documented as of this encounter Plan [...]
--- OUTSIDE RECORDS SUMMARY | 2022-01-17 15:56 | XMS_ITS | Encounter Summary ---
:1990 Author Organization [facility] Address [address] [place] [address] Care Team Providers Name Role Phone Unavailable Primary Care Provider Unavailable Reason for Visit Reason Comments Nurse Visit nob ed/intake appt Encounter Details Date Type Department Care Team Description 05/26/2021 Virtual Visit Department of Moni Gross M.D. [address] [place] [address] Encounter For Obstetrics and Shannan Mora R.N. [address] [place] [address] Supervision Of Other Gynecology in Normal [place], [place] Unspecified Trimester [address], [place] [address] Social History Tobacco Use Types [...] or relatives? How often do you attend lutheran or Never 2020 taoist services? Do you belong to any clubs or No 05/22/2021 organizations such as lutheran groups, unions, fraternal or athletic groups, or [...] place to sleep or slept in a detention (including now)? Education Answer Date Recorded What is the highest level of school Bachelor's degree (e.g., BA, AB, 05/22/2021 you have completed or the highest BS) degree you have received? Sex Assigned at Date Recorded Female 05/18/2021 7:19 PM MANAGER OF EXHIBITIONS AND COLLECTIONS documented as of this encounter Patient Instructions [...] Provided Today: Beginnings: , , and [facility] brochure-[facility] GER OF EXHIBITIONS AND COLLECTIONS documented in this encounter Progress Notes Shannan Mora R.N. - 05/26/2021 10:30 AM CST Consult conducted via real-time audio/video technology by Shannan Mora R.N. in [facility] to the patient in Patient's Home. episode opened-please see history for details. States is very active with exercise and weight lifting-has adjusted with . Advised should cause any back/abdominal discomfort or SOB. Questions about calcium requirement. Discussed and sent Source of Calcium brochure via portal. Discussed COVID 19 precautions: vaccination, good handwashing, social distance, masking. Encouraged to call with questions or concerns. GER OF EXHIBITIONS AND COLLECTIONS documented in this encounter Plan of Treatment Not on filedocumented as of this encounter Results (ABNORMAL) Bacterial Culture, Aerobic + Susc, Urine (06/11/2021 9:20 AM MANAGER OF EXHIBITIONS AND COLLECTIONS) Analysis Performed At Patho logist Time Signature Urine Culture Mixed 06/12/2021 [facility] hilda. (A) 9:12 AM MANAGER OF EXHIBITIONS AND COLLECTIONS Specimen Anatomical Collection Method Collection Time Receive d Time (Source) Location / / Volume Laterality Urine (Urine, 06/11/2021 9:20 AM 06/11/19 2:06 Midstream) MANAGER OF EXHIBITIONS AND COLLECTIONS PM MANAGER OF EXHIBITIONS AND COLLECTIONS Comment: Specimen Source Site: Urine Moni Gross M.D. LAB MICROBIOLOGY - GENERAL O RDERABLES Performing Organization Address City/State/ZIP Code Phon e Number [facility]- [address] [place] [address] [place] [address] System in [address] (ABNORMAL) Urinalysis with Microscopic if Indicated (06/11/2021 9:20 AM MANAGER OF EXHIBITIONS AND COLLECTIONS) P athologist Signature Source Urine, 06/11/2021 [facility] Urine, Clean 9:33 AM MANAGER OF EXHIBITIONS AND COLLECTIONS Catch Clarity Cloudy (A) Clear 06/11/2021 [facility] 9:33 AM MANAGER OF EXHIBITIONS AND COLLECTIONS Color Yellow 06/11/2021 [facility] 9:33 AM MANAGER OF EXHIBITIONS AND COLLECTIONS Comment: ----REFERENCE VALUE---- Colorless Yellow Juanita Blood Negative Negative 06/11/2021 9:33 AM MANAGER OF EXHIBITIONS AND COLLECTIONS [facility] Nitrite Negative Negative 06/11/2021 9:33 AM MANAGER OF EXHIBITIONS AND COLLECTIONS [facility] Leukocyte Esterase Small (A) Negative 06/11/2021 9:33 AM CS T [facility] Protein Negative mg/dL 06/11/2021 9:33 AM MANAGER OF EXHIBITIONS AND COLLECTIONS [facility] Comment: ----REFERENCE VALUE---- Negative Trace Glucose Negative Negative mg/dL 06/11/2021 9:33 AM MANAGER OF EXHIBITIONS AND COLLECTIONS OW [facility] Ketone Negative Negative mg/dL 06/11/2021 9:33 AM MANAGER OF EXHIBITIONS AND COLLECTIONS OW AT Bilirubin Negative Negative 06/11/2021 9:33 AM MANAGER OF EXHIBITIONS AND COLLECTIONS [facility] pH 7.0 5.0 - 8.0 06/11/2021 9:33 AM MANAGER OF EXHIBITIONS AND COLLECTIONS [facility] Specific Cyrus 1.006 1.001 - 1.035 06/11/2021 9:33 AM MANAGER OF EXHIBITIONS AND COLLECTIONS [facility] Urobilinogen 0.2 0.2 - 1.0 mg/dL 06/11/2021 9:33 AM CS T [facility] Specimen Anatomical Collection Method Collection Time Receive d Time (Source) Location / / Volume Laterality Urine (Urine, 06/11/2021 9:20 AM 06/11/19 9:27 Clean Catch) MANAGER OF EXHIBITIONS AND COLLECTIONS AM MANAGER OF EXHIBITIONS AND COLLECTIONS Moni Gross M.D. LAB URINE ORDERABLES Performing Organization Address City/State/ZIP Code Phon e Number [facility]- [address] [place] [address] [facility] [place] [address] System in [place] [address] [place] [address] Syphilis Total Ab w/ Reflex, Serum (06/11/2021 9:02 AM MANAGER OF EXHIBITIONS AND COLLECTIONS) [facility] gist Method Time Signature Syphilis Nonreactive Nonreactive 06/14/2021 [facility] Total Ab w/ 3:47 PM MANAGER OF EXHIBITIONS AND COLLECTIONS Reflex Comment: No serologic evidence of infection with T. pallidum (syphilis). ??Repeat testing may be cons idered in patients with suspected acute or primary syphilis in 2-4 weeks. For additional information on interpreta tion of the syphilis reverse algorithm and resul ts, see: [email or web address] Specimen Anatomical Collection Method Collection Time Receive d Time (Source) Location / / Volume Laterality Blood (Blood, 06/11/2021 9:02 AM 06/14/19 1:54 Venous) MANAGER OF EXHIBITIONS AND COLLECTIONS PM MANAGER OF EXHIBITIONS AND COLLECTIONS Moni Gross M.D. LAB BLOOD ADD-ON Performing Organization Address City/[facility]/ZIP Code Phon e Number [facility] [address] [place], [place] [address] [place] [address] [place] [address] Laboratory Medicine and Pathology [address] MADDEN Rubella Antibodies, IgG (06/11/2021 9:02 AM MANAGER OF EXHIBITIONS AND COLLECTIONS) athologist Signature Rubella Ab, Positive 06/12/2021 [facility] IgG, S 9:27 PM MANAGER OF EXHIBITIONS AND COLLECTIONS Comment: Results suggest response to immunization or prior exposure to the virus. ----REFERENCE VALUE---- Vaccinated: Positive (>=1.0 AI) Unvaccinated: Negative (<=0.7 AI) Rubella IgG Antibody Index 1.9 06/12/2021 9: 27 PM MANAGER OF EXHIBITIONS AND COLLECTIONS [facility] Specimen Anatomical Collection Method Collection Time Receive d Time (Source) Location / / Volume Laterality Blood (Blood, 06/11/2021 9:02 AM 06/11/19 3:36 Venous) MANAGER OF EXHIBITIONS AND COLLECTIONS PM MANAGER OF EXHIBITIONS AND COLLECTIONS Moni Gross M.D. LAB MICROBIOLOGY - BLOOD ORD ERABLES Performing Organization Address City/[facility] Phon e Number [facility]- [address] [place] [address] LAB [place] [id number] System in [address] HIV-1/-2 Ag and Ab Scrn, Plasma (06/11/2021 9:02 AM MANAGER OF EXHIBITIONS AND COLLECTIONS) athologist Signature HIV Ag/Ab Negative Negative 06/12/2021 [facility] Scrn, 9:27 PM MANAGER OF EXHIBITIONS AND COLLECTIONS P Comment: Negative result does not rule out HIV in fection. If exposure to HIV infection occurred <14 d ays ago, contact the laboratory to request additi on of HIV-1 RNA detection / quantification test. HIV-1 p24 Ag Scrn, P Negative Negative 06/12/2021 9:27 PM MANAGER OF EXHIBITIONS AND COLLECTIONS [facility] Comment: Negative result does not rule out HIV in fection. If exposure to HIV infection occurred <14 d ays ago, contact the laboratory to request additi on of HIV-1 RNA detection / quantification test. HIV-1 Ab Scrn, P Negative Negative 06/12/2021 9:2 7 PM MANAGER OF EXHIBITIONS AND COLLECTIONS [facility] Comment: Negative result does not rule out HIV in fection. If exposure to HIV infection occurred <14 d ays ago, contact the laboratory to request additi on of HIV-1 RNA detection / quantification test. HIV-2 Ab Scrn, P Negative Negative 06/12/2021 9:2 7 PM MANAGER OF EXHIBITIONS AND COLLECTIONS [facility] Comment: Negative result does not rule out HIV in fection. If exposure to HIV infection occurred <14 d ays ago, contact the laboratory to request additi on of HIV-1 RNA detection / quantification test. Specimen Anatomical Collection Method Collection Time Receive d Time (Source) Location / / Volume Laterality Blood (Blood, 06/11/2021 9:02 AM 06/11/19 22 3:36 Venous) MANAGER OF EXHIBITIONS AND COLLECTIONS PM MANAGER OF EXHIBITIONS AND COLLECTIONS Moni Gross M.D. LAB MICROBIOLOGY - BLOOD ORD ERABLES Performing Organization Address City/[facility] Phon e Number [phone] [place] [address] System [address] HBs Antigen , Serum (06/11/2021 9:02 AM MANAGER OF EXHIBITIONS AND COLLECTIONS) athologist Signature HBs Antigen Negative Negative 06/12/2021 [facility] , S 9:26 AM MANAGER OF EXHIBITIONS AND COLLECTIONS Specimen Anatomical Collection Method Collection Time Receive d Time (Source) Location / / Volume Laterality Blood (Blood, 06/11/2021 9:02 AM 06/12/19 22 7:17 Venous) MANAGER OF EXHIBITIONS AND COLLECTIONS AM MANAGER OF EXHIBITIONS AND COLLECTIONS Moni Gross M.D. LAB MICROBIOLOGY - BLOOD ORD ERABLES Performing Organization Address City/State/ZIP Code Phon e Number [facility] [address] [place] [address] [facility] [place] [address] Laboratory Medicine and Pathology [address] MADDEN CBC without Differential (06/11/2021 9:02 AM MANAGER OF EXHIBITIONS AND COLLECTIONS) athologist Signature Hemoglobin 13.4 11.6 - 06/11/2021 [facility] 15.0 g/dL 9:11 AM MANAGER OF EXHIBITIONS AND COLLECTIONS Hematocrit 39.4 35.5 - 06/11/2021 [facility] 44.9 % 9:11 AM MANAGER OF EXHIBITIONS AND COLLECTIONS Erythrocytes 4.40 3.92 - 06/11/2021 [facility] 5.13 9:11 AM MANAGER OF EXHIBITIONS AND COLLECTIONS x10(12)/L MCV 89.5 78.2 - 06/11/2021 [facility] 97.9 fL 9:11 AM MANAGER OF EXHIBITIONS AND COLLECTIONS RBC Distrib Width 12.7 12.2 - 06/11/2021 [facility] 16.1 % 9:11 AM MANAGER OF EXHIBITIONS AND COLLECTIONS Platelet Count 163 157 - 371 06/11/2021 [facility] x10(9)/L 9:11 AM MANAGER OF EXHIBITIONS AND COLLECTIONS Leukocytes 5.7 3.4 - 9.6 06/11/2021 [facility] x10(9)/L 9:11 AM MANAGER OF EXHIBITIONS AND COLLECTIONS Specimen Anatomical Collection Method Collection Time Receive d Time (Source) Location / / Volume Laterality Blood (Blood, 06/11/2021 9:02 AM 06/11/19 9:03 Venous) MANAGER OF EXHIBITIONS AND COLLECTIONS AM MANAGER OF EXHIBITIONS AND COLLECTIONS Moni Gross M.D. LAB BLOOD ADD-ON Performing Organization Address City/State/ZIP Code Phon e Number [facility]- [address] [place] [address] [facility] [place] [address] System in [place] [address] Antibody Screen, RBC (with reflex Antibody ID) (06/11/2021 9:02 AM MANAGER OF EXHIBITIONS AND COLLECTIONS) athologist Signature Antibody Screen NEG 06/11/2021 A[facility] 6:18 PM MANAGER OF EXHIBITIONS AND COLLECTIONS Specimen Anatomical Collection Method Collection Time Receive d Time (Source) Location / / Volume Laterality Blood (Blood, 06/11/2021 9:02 AM 06/11/19 3:04 Venous) MANAGER OF EXHIBITIONS AND COLLECTIONS PM MANAGER OF EXHIBITIONS AND COLLECTIONS Moni Gross M.D. LAB BLOOD BANK TEST ORDERABL ES Performing Organization Address City/State/ZIP Code Phon e Number [facility]- [address] [place] [address] [facility] [place] [address] [facility] [address] ABORh, RBC (06/11/2021 9:02 AM MANAGER OF EXHIBITIONS AND COLLECTIONS) P athologist Signature ABO Group A 06/11/2021 6:18 AUST PM MANAGER OF EXHIBITIONS AND COLLECTIONS Rh Type POS 06/11/2021 6:18 AUST PM MANAGER OF EXHIBITIONS AND COLLECTIONS Specimen Anatomical Collection Method Collection Time Receive d Time (Source) Location / / Volume Laterality Blood (Blood, 06/11/2021 9:02 AM 06/11/19 22 3:04 Venous) MANAGER OF EXHIBITIONS AND COLLECTIONS PM MANAGER OF EXHIBITIONS AND COLLECTIONS Moni Gross M.D. LAB BLOOD BANK TEST ORDERABL ES Performing Organization Address City/State/ZIP Code Phon e Number [facility]- [address] [place] [address] [facility] [place] [address] [facility] [address] documented in this encounter Visit Diagnoses Diagnosis Encounter For Supervision Of Other Veronica l Unspecified Trimester (HCC) documented in this encounter
--- OUTSIDE RECORDS SUMMARY | 2022-01-17 15:56 | XMS_ITS | Encounter Summary ---
:1990 Author Organization [facility] Address [address] [place] [address] Care Team Providers Name Role Phone Unassigned, Pcp Primary Care Provider Unavailable Reason for Referral Outpatient (Routine) - Closed Specialty Diagnoses / Procedures Referred By Contact Refer red To Contact Moni Arias M. D. [facility] [address] [place] [address] Referral ID Status Reason Start Date Expiration Date Visits Requ ested Visits Authorized [id number] Closed 09/01/2021 09/01/2022 1 1 Reason for Visit Reason Comments Routine Visit Outpatient (Routine) - Closed Specialty Diagnoses / Procedures Referred By Contact Refer red To Contact Moni Arias M. D. [facility] [address] [place] [address] Referral ID Status Reason Start Date Expiration Date Visits Requ ested Visits Authorized [id number] Closed 08/10/2021 08/10/2022 1 1 Encounter Details Date Type Department Care Team Description 09/01/2021 Routine Department of Moni Wallis MedicineAria M.D. Other Normal Clinic, in [facility] [place] [address] [place], [place] Trimester (Primary [address] [address] Dx) MADELYN RHODES [phone] [address] (Work) [phone] Social History Tobacco Use Types Packs/Day Years [...] do you attend hoahaoism or Never 2020 quaker services? 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 The creation of this record is basedon the scribe remotely listening to the visit and the provider's statements to them. This document has been checked and approved by the attending provider. documented in this encounter Plan of Treatment Scheduled Referrals Name Type Priority Associated Diagnoses Order S [facility] Family Medicine Outpatient Referral Routine Expec axel: office visit 10/01/2021 (clinic) (Approximate), Expires: 12/01/2022 documented as of this encounter Visit Diagnoses Diagnosis Examination Other Normal Pregna ncy Second Trimester (HCC) - Primary documented in this encounter Additional Health Concerns Assessment Noted Time PHQ-9 Depression Total Score: 1 06/11/2021 10:22 AM CS T documented as of this encounter Care Teams Recreation Programmer Relationship Specialty Start Date End Date Unassigned, Pcp PCP - General Family Medicine 06/11/21 documented as of this encounter
--- OUTSIDE RECORDS SUMMARY | 2022-01-17 15:56 | XMS_ITS | Encounter Summary ---
:1990 Author Organization [facility] Address [address] [place] [address] Care Team Providers Name Role Phone Unavailable Primary Care Provider Unavailable Reason for Visit Reason Comments Abdominal Cramping Encounter Details Date Type Department Care Team Description 01/08/2021 - Emergency [facility] Procedure And Treatment 01/09/2021 [address] [facility] Not Carried Out Due To MADELYN RHODES [id number] Patient Leaving Prior To [phone] Being Seen By [facility] Care Provider ( Primary Dx) Social History [...] or relatives? How often do you attend nondenominational or Never 2020 moravian services? Do you belong to any clubs or No 05/22/2021 organizations such as nondenominational groups, unions, fraternal or athletic groups, or [...] or slept in a retirement (including now)? 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
--- OUTSIDE RECORDS SUMMARY | 2022-01-17 15:56 | XMS_ITS | Encounter Summary ---
:1990 Author Organization [facility] Address [address] [place] [address] Care Team Providers Name Role Phone Unassigned, Pcp Primary Care Provider Unavailable Encounter Details Date Type Department Care Team Description 06/11/2021 Hospital Encounter Department of Moni Gross For Laboratory Medicine Liz Barr Supervision Of Other in [place], [address] Normal [place], [place] Unspecified [address] [address] Trimester [place], [place] [phone] [phone] (Work) [phone] Social History Tobacco Use Types Packs/Day Years [...] or relatives? How often do you attend cheondoism or Never 2020 muslim services? Do you belong to any clubs or No 05/22/2021 organizations such as cheondoism groups, unions, fraternal or athletic groups, or [...] at Date Recorded Female 05/18/2021 7:19 PM BEFORE AND AFTER SCHOOL DAYCARE WORKER documented as of this encounter Medications at [...] Encounter For Re sults for this SCRN, BEFORE AND AFTER SCHOOL DAYCARE WORKER Supervision Of Other proce dure are in PLASMA Normal the results Unspecified section. Trimester SYPHILIS TOTAL AB Routine 06/11/2021 9:02 AM Encounter For Res ults for this W/ REFLEX S BEFORE AND AFTER SCHOOL DAYCARE WORKER Supervision Of Other procedu re are in Normal the results Unspecified section. Trimester HBS ANTIGEN Routine 06/11/2021 9:02 AM Encounter For Results for this , S BEFORE AND AFTER SCHOOL DAYCARE WORKER Supervision Of Other procedu re are in Normal the results Unspecified section. Trimester ABORH, RBC Routine 06/11/2021 9:02 AM Encounter For Results for this BEFORE AND AFTER SCHOOL DAYCARE WORKER Supervision Of Other procedu re are in Normal the results Unspecified section. Trimester RUBELLA ANTIBODIES, Routine 06/11/2021 9:02 AM Encounter For R esults for this IGG BEFORE AND AFTER SCHOOL DAYCARE WORKER Supervision Of Other procedu re are in Normal the results Unspecified section. Trimester CBC WITHOUT Routine 06/11/2021 9:02 AM Encounter For Results for this DIFFERENTIAL, B BEFORE AND AFTER SCHOOL DAYCARE WORKER Supervision Of Other proc edure are in Normal the results Unspecified section. Trimester ANTIBODY SCREEN, B Routine 06/11/2021 9:02 AM Encounter For Re sults for this BEFORE AND AFTER SCHOOL DAYCARE WORKER Supervision Of Other procedu re are in Normal the results Unspecified section. Trimester documented in this encounter Results Syphilis Total Ab w/ Reflex, Serum (06/11/2021 9:02 AM BEFORE AND AFTER SCHOOL DAYCARE WORKER) [facility] Method Time Signature Syphilis Nonreactive Nonreactive 06/14/2021 [facility] Total Ab w/ 3:47 PM BEFORE AND AFTER SCHOOL DAYCARE WORKER Reflex Comment: No serologic evidence of infection with T. pallidum (syphilis). ??Repeat testing may be cons idered in patients with suspected acute or primary syphilis in 2-4 weeks. For additional information on interpreta tion of the syphilis reverse algorithm and resul ts, see: [email or web address] df Specimen Anatomical Collection Method Collection Time Receive d Time (Source) Location / / Volume Laterality Blood (Blood, 06/11/2021 9:02 AM 06/14/19 1:54 Venous) BEFORE AND AFTER SCHOOL DAYCARE WORKER PM BEFORE AND AFTER SCHOOL DAYCARE WORKER Moni Gross M.D. LAB BLOOD ADD-ON Performing Organization Address City/State/ZIP Code Phon e Number [facility] [address] [place], [place] [address] [facility] [place] [address] Laboratory Medicine and Pathology [address] [place] Rubella Antibodies, IgG (06/11/2021 9:02 AM BEFORE AND AFTER SCHOOL DAYCARE WORKER) athologist Signature Rubella Ab, Positive 06/12/2021 [facility] IgG, S 9:27 PM BEFORE AND AFTER SCHOOL DAYCARE WORKER Comment: Results suggest response to immunization or prior exposure to the virus. ----REFERENCE VALUE---- Vaccinated: Positive (>=1.0 AI) Unvaccinated: Negative (<=0.7 AI) Rubella IgG Antibody Index 1.9 06/12/2021 9: 27 PM BEFORE AND AFTER SCHOOL DAYCARE WORKER [facility] Specimen Anatomical Collection Method Collection Time Receive d Time (Source) Location / / Volume Laterality Blood (Blood, 06/11/2021 9:02 AM 06/11/19 22 3:36 Venous) BEFORE AND AFTER SCHOOL DAYCARE WORKER PM BEFORE AND AFTER SCHOOL DAYCARE WORKER Moni Gross M.D. LAB MICROBIOLOGY - BLOOD ORD ERABLES Performing Organization Address City/[facility]/ZIP Code Phon e Number [address] [phone] [place] [address] System [address] HIV-1/-2 Ag and Ab Scrn, Plasma (06/11/2021 9:02 AM BEFORE AND AFTER SCHOOL DAYCARE WORKER) P athologist Signature HIV Ag/Ab Negative Negative 06/12/2021 [facility] Scrn, 9:27 PM BEFORE AND AFTER SCHOOL DAYCARE WORKER P Comment: Negative result does not rule out HIV in fection. If exposure to HIV infection occurred <14 d ays ago, contact the laboratory to request additi on of HIV-1 RNA detection / quantification test. HIV-1 p24 Ag Scrn, P Negative Negative 06/12/2021 9:27 PM BEFORE AND AFTER SCHOOL DAYCARE WORKER [facility] Comment: Negative result does not rule out HIV in fection. If exposure to HIV infection occurred <14 d ays ago, contact the laboratory to request additi on of HIV-1 RNA detection / quantification test. HIV-1 Ab Scrn, P Negative Negative 06/12/2021 9:2 7 PM BEFORE AND AFTER SCHOOL DAYCARE WORKER [facility] Comment: Negative result does not rule out HIV in fection. If exposure to HIV infection occurred <14 d ays ago, contact the laboratory to request additi on of HIV-1 RNA detection / quantification test. HIV-2 Ab Scrn, P Negative Negative 06/12/2021 9:2 7 PM BEFORE AND AFTER SCHOOL DAYCARE WORKER [facility] Comment: Negative result does not rule out HIV in fection. If exposure to HIV infection occurred <14 d ays ago, contact the laboratory to request additi on of HIV-1 RNA detection / quantification test. Specimen Anatomical Collection Method Collection Time Receive d Time (Source) Location / / Volume Laterality Blood (Blood, 06/11/2021 9:02 AM 06/11/19 22 3:36 Venous) BEFORE AND AFTER SCHOOL DAYCARE WORKER PM BEFORE AND AFTER SCHOOL DAYCARE WORKER Moni Gross M.D. LAB MICROBIOLOGY - BLOOD ORD ERABLES Performing Organization Address City/State/ZIP Code Phon e Number [address] [place], [place] [address] [place] [address] System [address] HBs Antigen , Serum (06/11/2021 9:02 AM BEFORE AND AFTER SCHOOL DAYCARE WORKER) P athologist Signature HBs Antigen Negative Negative 06/12/2021 [facility] , S 9:26 AM BEFORE AND AFTER SCHOOL DAYCARE WORKER Specimen Anatomical Collection Method Collection Time Receive d Time (Source) Location / / Volume Laterality Blood (Blood, 06/11/2021 9:02 AM 06/12/19 7:17 Venous) BEFORE AND AFTER SCHOOL DAYCARE WORKER AM BEFORE AND AFTER SCHOOL DAYCARE WORKER Moni Gross M.D. LAB MICROBIOLOGY - BLOOD ORD ERABLES Performing Organization Address City/State/ZIP Code Phon e Number [facility] [address] [place], [place] [address] SU[facility] CENTER [facility] [place] [address] Laboratory Medicine and Pathology [address] [place] CBC without Differential (06/11/2021 9:02 AM BEFORE AND AFTER SCHOOL DAYCARE WORKER) athologist Signature Hemoglobin 13.4 11.6 - 06/11/2021 [facility] 15.0 g/dL 9:11 AM BEFORE AND AFTER SCHOOL DAYCARE WORKER Hematocrit 39.4 35.5 - 06/11/2021 [place] 44.9 % 9:11 AM BEFORE AND AFTER SCHOOL DAYCARE WORKER Erythrocytes 4.40 3.92 - 06/11/2021 [place] 5.13 9:11 AM BEFORE AND AFTER SCHOOL DAYCARE WORKER x10(12)/L MCV 89.5 78.2 - 06/11/2021 [place] 97.9 fL 9:11 AM BEFORE AND AFTER SCHOOL DAYCARE WORKER RBC Distrib Width 12.7 12.2 - 06/11/2021 [place] 16.1 % 9:11 AM BEFORE AND AFTER SCHOOL DAYCARE WORKER Platelet Count 163 157 - 371 06/11/2021 [place] x10(9)/L 9:11 AM BEFORE AND AFTER SCHOOL DAYCARE WORKER Leukocytes 5.7 3.4 - 9.6 06/11/2021 [place] x10(9)/L 9:11 AM BEFORE AND AFTER SCHOOL DAYCARE WORKER Specimen Anatomical Collection Method Collection Time Receive d Time (Source) Location / / Volume Laterality Blood (Blood, 06/11/2021 9:02 AM 06/11/19 9:03 Venous) BEFORE AND AFTER SCHOOL DAYCARE WORKER AM BEFORE AND AFTER SCHOOL DAYCARE WORKER Moni Gross M.D. LAB BLOOD ADD-ON Performing Organization Address City/State/ZIP Code Phon e Number [facility]- [address] [place] [address] [place] [address] System in [place] [address] Antibody Screen, RBC (with reflex Antibody ID) (06/11/2021 9:02 AM BEFORE AND AFTER SCHOOL DAYCARE WORKER) athologist Signature Antibody Screen NEG 06/11/2021 [facility] 6:18 PM BEFORE AND AFTER SCHOOL DAYCARE WORKER Specimen Anatomical Collection Method Collection Time Receive d Time (Source) Location / / Volume Laterality Blood (Blood, 06/11/2021 9:02 AM 06/11/19 3:04 Venous) BEFORE AND AFTER SCHOOL DAYCARE WORKER PM BEFORE AND AFTER SCHOOL DAYCARE WORKER Moni Gross M.D. LAB BLOOD BANK TEST ORDERABL ES Performing Organization Address City/State/ZIP Code Phon e Number [facility]- [address] [place] [address] [facility] [place], [place] [id number] [place] [address] ABORh, RBC (06/11/2021 9:02 AM BEFORE AND AFTER SCHOOL DAYCARE WORKER) athologist Signature ABO Group A 06/11/2021 6:18 [place] PM BEFORE AND AFTER SCHOOL DAYCARE WORKER Rh Type POS 06/11/2021 6:18 AUST PM BEFORE AND AFTER SCHOOL DAYCARE WORKER Specimen Anatomical Collection Method Collection Time Receive d Time (Source) Location / / Volume Laterality Blood (Blood, 06/11/2021 9:02 AM 06/11/19 3:04 Venous) BEFORE AND AFTER SCHOOL DAYCARE WORKER PM BEFORE AND AFTER SCHOOL DAYCARE WORKER Moni Gross M.D. LAB BLOOD BANK TEST ORDERABL ES Performing Organization Address City/[facility]/ZIP Code Phon e Number [facility]- [address] [place] [address] [facility] [place], [place] [id number] [place] [address] documented in this encounter Visit Diagnoses Diagnosis Encounter For Supervision Of Other Veronica anthony Unspecified Trimester (HCC) documented in this encounter Additional Health Concerns Assessment Noted Time PHQ-9 Depression Total Score: 1 06/11/2021 10:22 AM CS T documented as of this encounter Care Teams Etch Operator Semiconductor Wafers Relationship Specialty Start Date End Date Unassigned, Pcp PCP - General Family Medicine 06/11/21 documented as of this encounter
--- OUTSIDE RECORDS SUMMARY | 2022-01-17 15:56 | XMS_ITS | Encounter Summary ---
:1990 Author Organization [facility] Address [address] [place] [address] Care Team Providers Name Role Phone Unassigned, Pcp Primary Care Provider Unavailable Reason for Referral Outpatient (Routine) - Closed Specialty Diagnoses / Procedures Referred By Contact Refer red To Contact Family Medicine Moni Gross M. D. [facility] Region [address] [place] [address] Referral ID Status Reason Start Date Expiration Date Visits Requ ested Visits Authorized [id number] Closed 08/10/2021 08/10/2022 1 1 Reason for Visit Reason Comments Routine Visit 16 5/7 weeks no concerns Appointment Request (Routine) - Closed Specialty Diagnoses / Procedures Referred By Contact Refer maribell To Contact Family Medicine Referral ID Status Reason Start Date Expiration Date Visits Requ ested Visits Authorized [id number] Closed 07/13/2021 07/13/2022 1 1 Encounter Details Date Type Department Care Team Description 08/10/2021 Routine Department of Moni Wallis Medicine, Aria Barr M.D. Other Normal Clinic, in [place], [address] Second [place], [place] Trimester (Primary [address] [address] Dx) [place], [place] [phone] (Work) [phone] Social History Tobacco Use Types Packs/Day Years [...] or relatives? How often do you attend advent or Never 2020 lutheran services? Do you belong to any clubs or No 05/22/2021 organizations such as advent groups, unions, fraternal or athletic groups, or [...] at Date Recorded Female 05/18/2021 7:19 PM NURSING MANAGER documented as of this encounter Last [...] Body Mass Index 29.37 07/13/2021 11:32 AM NURSING MANAGER documented in this encounter Progress Notes [...] Name Type Priority Associated Diagnoses Order S [facility] Outpatient Referral Routine Expec axel: office [...] documented as of this encounter Care Teams Photographic Hand Developer Relationship Specialty Start Date End Date Unassigned, Pcp PCP - General Family Medicine 06/11/21 documented as of this encounter
--- OUTSIDE RECORDS SUMMARY | 2022-01-17 15:56 | XMS_ITS | Encounter Summary ---
:1990 Author Organization [facility] Address [address] [place] [address] Care Team Providers Name Role Phone Unassigned, Pcp Primary Care Provider Unavailable Encounter Details Date Type Department Care Team Description 08/31/2021 Ancillary Procedure Department of Moni Gross [facility] Obstetrics and E, MIvory Other Normal Gynecology in [address] [place], [place] Trimester [address] [address] [place], [place] [phone] (Work) [phone] Social History Tobacco Use Types Packs/Day Years [...] or relatives? How often do you attend yazidism or Never 2020 zoroastrian services? Do you belong to any clubs or No 05/22/2021 organizations such as yazidism groups, unions, fraternal or athletic groups, or [...] at Date Recorded Female 05/18/2021 7:19 PM GLASS LOADING EQUIPMENT TENDER documented as of this encounter Plan [...] documented as of this encounter Care Teams Manager Summer Relationship Specialty Start Date End Date Unassigned, Pcp PCP - General Family Medicine 06/11/21 documented as of this encounter
--- OUTSIDE RECORDS SUMMARY | 2022-01-17 15:56 | XMS_ITS | Encounter Summary ---
:1990 Author Organization [facility] Address [address] [place] [address] Care Team Providers Name Role Phone Unassigned, Pcp Primary Care Provider Unavailable Encounter Details Date Type Department Care Team Description 06/11/2021 Silent Schedule Department of Moni Gross Encounter For Obstetrics and E, MIvory Supervision Of Other Gynecology in [address] Normal [place], [place] Unspecified Trimester [address] [address] [place], [place] [phone] (Work) [phone] Social History Tobacco Use Types Packs/Day Years [...] or relatives? How often do you attend spiritism or Never 2020 oriental orthodox services? Do you belong to any clubs or No 05/22/2021 organizations such as spiritism groups, unions, fraternal or athletic groups, or [...] at Date Recorded Female 05/18/2021 7:19 PM SPINDRAW OPERATOR documented as of this encounter Plan of Treatment Not on filedocumented as of this encounter Procedures Procedure Name Priority Date/Time Associated Comments Diagnosis US OB FIRST RAD - Routine 06/11/2021 9:19 Encounter For Results fo r this TRIMESTER (most inpatients AM SPINDRAW OPERATOR Supervision Of procedure are in and all Other Normal the results outpatients) section. Unspecified Trimester documented in this encounter Results US OB First Trimester (06/11/2021 9:19 AM SPINDRAW OPERATOR) Anatomical Region Laterality Modality Body, Ultrasound OB RST LOS, Ultrasound ARZ LOS N/A Ultrasound Specimen (Source) Anatomical Collection Method Collection Time Re ceived Time Location / / Volume Laterality 06/11/2021 10:09 AM SPINDRAW OPERATOR Impressions 06/11/2021 10:11 AM SPINDRAW OPERATOR Single, viable, intrauterine with ultrasound derived estimated [...] sound dating is allowed before changing EDWARD. [facility] in [place] SECURITY GUARD Dept. [phone] Narrative 06/11/2021 10:11 AM SPINDRAW OPERATOR First Trimester Ultrasound EXAM: US OB FIRST TRIMESTER HEALTH CARE PROVIDER: Dr. Gross COMPARISON: N/A RELEVANT CLINICAL INFORMATION/INDICATION : dating Estimated Date of Delivery (EDWARD) by LMP: 01/20/2022. Gestational age by LMP: 8 weeks 1 day FINDINGS: Gestational Sac: single, intrauterine Yolk Sac: 3.5 mm. heart rate: 161 beats per minute. [place] Rump Length: 19 mm. Age and EDWARD [...] mm. heart rate: 161 beats per minute. [place] Rump Length: 19 mm. Age and EDWARD [...] sound dating is allowed before changing EDWARD. [facility] in [place] SECURITY GUARD Dept. [phone] Moni Gross M.D. IMG OB US PROCEDURES documented in this encounter Visit Diagnoses Diagnosis Encounter For Supervision Of Other Veronica l Unspecified Trimester (HCC) documented in this encounter Additional Health Concerns Assessment Noted Time PHQ-9 Depression Total Score: 1 06/11/2021 10:22 AM CS T documented as of this encounter Care Teams Fruit Trimmer Relationship Specialty Start Date End Date Unassigned, Pcp PCP - General Family Medicine 06/11/21 documented as of this encounter
--- OUTSIDE RECORDS SUMMARY | 2022-01-17 15:56 | XMS_ITS | Encounter Summary ---
:1990 Author Organization [facility] Address [address] [place] [address] Care Team Providers Name Role Phone Unassigned, Pcp Primary Care Provider Unavailable Encounter Details Date Type Department Care Team Description 10/29/2021 Hospital Encounter Department of Moni Gross Laboratory Medicine Liz Barr Other Normal in [place], [address] Second [place], [place] Trimester (HCC) [address] [address] [place], [place] [phone] (Work) [phone] Social History Tobacco Use Types Packs/Day Years [...] do you attend confucianism or Never 2020 samaritan services? Do you [...] at Date Recorded Female 05/18/2021 7:19 PM RAGS LABORER documented as of this encounter Medications at [...] Organization Address City/State/ZIP Code Phon e Number [facility]- [address] [place] [address] [place] [address] System in [place] [address] [facility] Glucose Tolerance Test, 1 hour (10/29/2021 [...] Organization Address City/State/ZIP Code Phon e Number [facility]- [address] [place] [address] [place] [address] System in [place] [address] [facility] documented in this encounter Visit Diagnoses Diagnosis Examination Other Normal Pregna ncy Second Trimester (HCC) documented in this encounter Additional Health Concerns Assessment Noted Time PHQ-9 Depression Total Score: 1 06/11/2021 10:22 AM CS T documented as of this encounter Care Teams Valet Service Attendant Relationship Specialty Start Date End Date Unassigned, Pcp PCP - General Family Medicine 06/11/21 documented as of this encounter
--- OUTSIDE RECORDS SUMMARY | 2022-01-17 15:56 | XMS_ITS | Encounter Summary ---
:1990 Author Organization [facility] Address [address] [place] [address] Care Team Providers Name Role Phone Unassigned, Pcp Primary Care Provider Unavailable Reason for Referral Outpatient (Routine) - Authorized Specialty Diagnoses / Procedures Referred By Contact Refer red To Contact Family Moni Arroy[facility] [address] [address] Referral ID Status Reason Start Date Expiration Date Visits V isits Requested Authorized [id number] Authorized 10/29/2021 10/29/2022 1 1 Reason for Visit Reason Comments Routine Visit 28 wk 1 day - no concerns Outpatient (Routine) - Closed Specialty Diagnoses / Procedures Referred By Contact Jackie reyna To Contact Moni Arias [facility]. D[facility] [address] [place] [address] Referral ID Status Reason Start Date Expiration Date Visits Requ ested Visits Authorized [id number] Closed 09/28/2021 09/28/2022 1 1 Encounter Details Date Type Department Care Team Description 10/29/2021 Routine Department of Moni Wallis MedicineAria M.D. Other Normal Clinic, in [facility] [address] [place], [place] Trimester (HCC) [address] [address] (Primary Dx) MADELYN RHODES [phone] (Work) [phone] Social History Tobacco Use Types Packs/Day Years [...] do you attend moravian or Never 2020 yazidi services? Do you [...] Date Recorded Female 05/18/2021 7:19 PM SHIP YARD ELECTRICAL PERSON documented as of this encounter Last Filed [...] Body Mass Index 33.01 07/13/2021 11:32 AM SHIP YARD ELECTRICAL PERSON documented in this encounter Progress Notes Moni [...] Type Priority Associated Diagnoses Order S [facility] Outpatient Referral Routine Expec axel: office visit 11/28/2021 (clinic) (Approximate), Expires: 01/29/2023 documented as of this encounter Visit Diagnoses Diagnosis Examination Other Normal Pregna ncy Third Trimester (HCC) - Primary documented in this encounter Additional Health Concerns Assessment Noted Time PHQ-9 Depression Total Score: 1 06/11/2021 10:22 AM CS T documented as of this encounter Care Teams Machine Compositor Relationship Specialty Start Date End Date Unassigned, Pcp PCP - General Family Medicine 06/11/21 documented as of this encounter
--- OUTSIDE RECORDS SUMMARY | 2022-01-17 15:56 | XMS_ITS | Encounter Summary ---
:1990 Author Organization [facility] Address [address] [place] [address] Care Team Providers Name Role Phone Unavailable Primary Care Provider Unavailable Reason for Referral Outpatient (Routine) - Closed Specialty Diagnoses / Procedures Referred By Contact Refer red To Contact Family Medicine Diagnoses Encounter For Supervision Of Other Normal Unspecified Trimester (HCC) Moni Gross M.D. [facility] [address] [place] [address] Referral ID Status Reason Start Date Expiration Date Visits Requ ested Visits Authorized [id number] Closed 05/18/2021 05/18/2022 1 1 Scheduling Instructions NOB after US DE SALES CONSULTANT Specialty Diagnoses / Procedures Referred By Contact Refer red To Contact Moni Gross M. D. [facility] [address] [place] [address] Referral ID Status Reason Start Date Expiration Date Visits Requ ested Visits Authorized DE SALES CONSULTANT Encounter Details Date Type Department Care Team Description 05/18/2021 Clinical Communication Department of Gino Wallis MedicineAria M.D. [facility], in [facility] [address] [place], [place] [address] [address] MADELYN RHODES [phone] (Work) [phone] Social History Tobacco Use Types Packs/Day Years [...] do you attend spiritism or Never 2020 yazdanism services? Do you [...] at Date Recorded Female 05/18/2021 7:19 PM INSIDE SALES CONSULTANT documented as of this encounter Miscellaneous Notes [...] following references were used: nursing clinical judgement. DE SALES CONSULTANT Telephone Encounter - Jeffrey Villaseñor - 05/18/2021 [...] send all scheduling replies to scheduling pool. DE SALES CONSULTANT documented in this encounter Plan of Treatment [...] US OB First Trimester (06/11/2021 9:19 AM INSIDE SALES CONSULTANT) Anatomical Region Laterality Modality Body, Ultrasound OB RST LOS, Ultrasound ARZ LOS N/A Ultrasound Specimen (Source) Anatomical Collection Method Collection Time Re ceived Time Location / / Volume Laterality 06/11/2021 10:09 AM INSIDE SALES CONSULTANT Impressions 06/11/2021 10:11 AM INSIDE SALES CONSULTANT Single, viable, intrauterine with ultrasound derived estimated [...] sound dating is allowed before changing EDWARD. [facility] in [place] CORPORATE LAW SPECIALIST Dept. [phone] [facility] 06/11/2021 10:11 AM INSIDE SALES CONSULTANT First Trimester Ultrasound EXAM: US OB FIRST TRIME[facility] PROVIDER: Dr. Gross COMPARISON: N/A RELEVANT CLINICAL INFORMATION/INDICATION : dating Estimated Date of Delivery (EDWARD) by LMP: 01/20/2022. Gestational age by LMP: 8 weeks 1 day FINDINGS: Gestational Sac: single, intrauterine Yolk Sac: 3.5 mm. heart rate: 161 beats per minute. [place] Rump Length: 19 mm. Age and [...] mm. heart rate: 161 beats per minute. [place] Rump Length: 19 mm. Age and [...] sound dating is allowed before changing EDWARD. [facility] in [place] CORPORATE LAW SPECIALIST Dept. [phone] Moni Gross M.D. IMG OB US PROCEDURES documented in this encounter Visit Diagnoses Diagnosis Encounter For Supervision Of Other Veronica l Unspecified Trimester (HCC) - Primary Encounter For Supervision Of Other Veronica l Unspecified Trimester (HCC) documented in this encounter
[2022-01-17 17:16] LABS: Basophils Absolute Auto 0.02 K/uL (0.00-0.30); Basophils Percent Auto 0.2 % (0.0-3.0); Eosinophils Absolute Auto 0.07 K/uL (0.00-0.50); Eosinophils Percent Auto 0.8 % (0.0-7.0); Immature Granulocytes Abs Auto 0.04 K/uL (0.00-0.30); Lymphocytes Percent Auto 16.3 % (20-44); Mean Corpuscular HGB Conc 34 gm/dL (32-36); Mean Corpuscular Hemoglobin 31 pg (26-34); Mean Corpuscular Volume 91 fL (80-100); Monocytes Percent Auto 7.7 % (0.0-11.0); Neutrophils Percent Auto 74.6 % (42.0-72.0); Platelet Count* 149 K/uL (140-440); RDW Coefficient of Variation % 12.7 % (11.5-15.5); Red Blood Count 4.16 m/uL (4.00-5.20); White Blood Count* 8.91 K/uL (4.50-11.00)
[2022-01-17 17:20] LABS: Slide Review Reflex No
[2022-01-17 17:56] LABS: SARS PCR* Negative SARS-CoV-2 (Negative)
--- NOTE | 2022-01-17 18:03 | W.PM.LDBA ---
Subjective History of Present Illness Date Seen: 01/17/22 Narrative: Patient is being admitted to Labor and Delivery for PROM.? She is a 31 year old at 39 Weeks, 4 Days gestation.? Her full history and physical was dictated by Edwin Dominguez CNM on 12/30/21.? Please see this for details.? ? 1. Subchorionic hemorrhage on 1st trimester US Not seen on Anatomy scan 2. COVID prior to 3. Transfer of care. See labs below. H&P done 12/30/2021 by JANUARY Jose 1st trimester US: 06/11/21 consistent with LMP Anatomy Scan: Normal anatomy 08/31/2021 Labs from [place]: 10/29/2021: 1 hr gct: 79 Hgb: 13.1 06/11/2021 A+ Antibody screen: neg Hgb: 13.4 Plt: 163 Hep B: neg HIV: neg Rub: Immune RPR: non-reactive UC: Mixed hilda OB - H&P: Exam Physical Exam: Vital signs: Temp Pulse Resp BP Pulse Ox 98.3 F 73 16 132/85 98 01/17/22 16:06 01/17/22 16:06 01/17/22 16:06 01/17/22 16:06 01/17/22 16:06 Constitutional: Constitutional: no acute distress Routine HEENT Exam: Head: Present normal inspection Eye: Present normal appearance ENT: Present normal exam Routine Neck Exam: Neck: Present full ROM Routine Respiratory Exam: Respiratory: Present CTA bilaterally Routine Cardiovascular Exam: Cardiovascular: RRR Routine Exam: Patient deferred: external exam Detailed Labor and Delivery Exam: Patient Gravid: yes Contraction frequency (min): 3 (Q3-4 min. pt only feeling some as cramping or tightening) Tachysystole: No Contraction intensity: Mild (SVE deferred due to PROM) Fetus (Single): Amniotic Membrane Status: SROM Amniotic Membrane Fluid Description: Clear Heart Rate Baseline: 135 Monitor Accelerations: Present Monitor Decelerations: None Intermediate Variability: Moderate (11-25) (6-25) Routine Extremities Exam: Extremities: Present full ROM Routine Back/Spine/Pelvis Exam: Back/Spine: full ROM Routine Neurological Exam: Present alert and oriented X3 Routine Psychiatric Exam: Present normal affect and normal thought process OB - Problem Based A/P Additional Plan (1) Rupture of membranes with clear amniotic fluid: Status: Acute (2) : Status: Acute Plan at 39.4 weeks gestation? GBS negative A+? Uncomplicated ? Prelabor Rupture of Membranes at term ?? PLAN:? 1. Reviewed risks and benefits of expectant management vs. labor augmentation with Pitocin. Chooses expectant management at this time.? 2. Considering a water . Consent signed. Hep C negative.? 3. Candidate for analgesia of choice. Planning unmedicated .? 4. Anticipate ? 5. Expectant management at this time.? 6. IV if needed per unit policy 7. Intermittent auscultation at this time. May use intermittent or continuous monitoring if conditions change per unit policy. Delivery/Labor/Induction Plan Plan: expectant management
[2022-01-18] VITALS (12 sets, daily range): BP systolic 107–148; BP diastolic 60–81; PULSE 59–90; RESP 14–16; TEMP 36.7–36.9; O2SAT 95–98
[2022-01-18] MEDS: fentaNYL 100 MCG/2 ML inj IVP ×2 (02:40→03:30)
--- NOTE | 2022-01-18 02:56 | P.OBPN_ITS ---
Pain Control Date Seen: 01/18/22 Pain control: other (hydrotherapy, position changes), narcotic analgesia and nitrous oxide Contractions Monitor mode: None Contraction frequency: 3 (Q3-4 min. pt only feeling some as cramping or tightening) Contraction pattern: Regular Contraction intensity: Strong/Firm (feelng urge to push and pressure with some contractions) Pelvic Exam Dilation (cm): 6 Effacement (%): 80 Station: -1 Fetus (Single) Amniotic Membrane Status: SROM status: Category l Comments: FHR 130-140's per Doppler. No decelerations heard. Assessment and Plan Assessment: active labor Plan: continue present management Comments: Pt was in tub but choose to get out. Labored on the toilet some before going to the bed. Tried nitrous but then choose to get IV fentanyl to try to ease the contractions some and rest. May consider an epidural. IV Pitocin offered to e xpedite labor despite making adequate cervical change. Risks and benefits reviewed. Pt declined at this time.
[2022-01-18] MEDS: LACTATED RINGERS 1000 ML 1,000 ML 999 ML IV (03:31)
[2022-01-18] MEDS: OXYTOCIN 30 unit/500 ML in NS 30 UNIT/500 ML BAG 300 UNIT IVPB (04:56)
--- NOTE | 2022-01-18 05:23 | PM.OBPRCVD ---
Procedure Delivery date: 01/18/22 Procedure Done: Global Procedure Details: Patient is a 31 year-old G3 now P2 admitted on 01/17/22 at 39 Weeks, 4 Days gestation for SROM.? Cervical exam on admission was 2 cm/60 % effaced/-2 station with membranes ruptured in vertex presentation.? Contractions were every 2-4 minutes.? heart rate demonstrated baseline 135 bpm with moderate variability, + accelerations, - decelerations; a category 1 tracing.? SROM occurred at 1230 on 07/20/21 with clear fluid.? ?? Labor Analgesia:? Fentanyl ?? Pitocin:? Yes, only? ?? Labor onset:? 2330? ?? Complete:? 0420 (presumed with pushing)? ?? Pushing:? 0420? ?? heart tones during second stage were heard by Doppler in the 130-140's with no decelerations heard..? ?? At 0429 a viable female delivered in vertex JULIETA presentation over intact perineum via spontaneous vaginal delivery.? was placed on maternal abdomen.? Cord was clamped and cut after a >5 minute delay.? Nose and mouth were bulb suctioned.? Infant weight pending.? 8 at 1 minute and 9 at 5 minutes.? Shoulder dystocia: no.? Nuchal cord: no.? ?? Placenta delivered spontaneously and complete at 0511 with a 3 vessel cord.? ?? Mother and were stable after delivery.? ?? Lacerations:? 1st degree, hemostatic without repair.? ?? Blood loss: 50 mL.? Blood loss measurement type: QBL? Sponge and needles counts are correct.? Intrapartal Events: None Delivery monitor: external FHT (intermittent and doppler) and external uterine Route of delivery: Episiotomy description: None Laceration description: Perineal - 1st Degree (without repair) Estimated blood loss (mL): 50 Anesthesia type: None Disposition: floor [place] Gender: Female presentation: vertex Placental Delivery Description: Spontaneous Cord Description: 3 Vessels OB Vag Delivery Procedures Additional Procedures ECV: No [place] [employer] Catheter Insertion: No NST: Yes D&C: No Laceration Repair: No Tubal Ligation : No Other: No
[2022-01-18] MEDS: IBUPROFEN 600 MG TABLET PO ×3 (05:50→18:03)
[2022-01-18] MEDS: DOCUSATE SODIUM 100 MG CAPSULE PO (09:00)
[2022-01-18] MEDS: ACETAMINOPHEN 500 MG TABLET 1000 MG PO ×3 (09:02→20:43)
[2022-01-19 01:00] VITALS: BP 122/79; PULSE 67; RESP 16; TEMP 36.4; O2SAT 98
[2022-01-19] MEDS: IBUPROFEN 600 MG TABLET PO (02:06)
[2022-01-19 05:15] VITALS: BP 120/84; PULSE 62; RESP 15; TEMP 36.4; O2SAT 97
[2022-01-19] MEDS: ACETAMINOPHEN 500 MG TABLET 1000 MG PO (06:13)
--- NOTE | 2022-01-19 08:18 | P.DS_ITS ---
DS: Providers Provider Date Seen: 01/19/22 Date of admission: 01/17/22 16:48 Primary care physician: Moni Gross MD Admitting Clinician: Kayla Spear CNM Attending Physician on discharge: Kayla Spear CNM Date of Discharge: 01/19/22 Exam Const: Vital Signs, click to edit/add: Vital Signs - 24 hr 01/18/22 08:45 01/18/22 09:35 01/18/22 12:00 Temperature 98.2 F 98.3 F Pulse Rate [Blood Pressure Cuff] 60 59 L Respiratory Rate 14 14 Blood Pressure [Le ft Arm] 144/81 H 114/70 116/71 Pulse Oximetry 95 Oxygen Delivery Me thod Room Air Room Air 01/18/22 16:10 01/18/22 20:30 01/19/22 01:00 Temperature 98.1 F 98.1 F 97.6 F Pulse Rate [Blood Pressure Cuff] 66 67 67 Respiratory Rate 16 15 16 Blood Pressure [Le ft Arm] 134/74 107/69 122/79 Pulse Oximetry 97 98 98 Oxygen Delivery Me thod Room Air Room Air Room Air 01/19/22 05:15 Temperature 97.6 F Pulse Rate [Blood Pressure Cuff] 62 Respiratory Rate 15 Blood Pressure [Le ft Arm] 120/84 Pulse Oximetry 97 Oxygen Delivery Me thod Room Air Documenting provider has reviewed patient's vital signs: yes Common normals: no apparent distress, average body habitus, oriented x3, no limitations, healthy appearing, alert and well nourished HENMT: Common normals: hearing grossly normal bilaterally and external ears normal Head and scalp: normal to inspection Face and sinus: normal facial exam External ear: external ears normal Eye: General eye: normal appearance of both eyes Neck & C-Spine: Common normals: full ROM, supple and no JVD Resp: Common normals: normal respiratory effort, no retractions, no use of ac cessory muscles and clear to auscultation bilaterally Auscultation: clear to auscultation bilaterally Cardio: Common normals: no JVD, regular rate, regular rhythm, S1 normal heart sound, S2 normal heart sound, no gallops, no clicks, no murmurs and no rub Rate: regular rate Rhythm: regular rhythm Heart sounds: S1 normal and S2 normal GI: Common normals: soft to palpation and non-tender Palpation: soft : Uterus: U/2 Lochia: small Extremity: Common normals: full ROM Neuro: Common normals: oriented x3 Sensorium/orientation: alert Psych: Common normals: mental status grossly normal, thought process normal, cooperative, affect normal, speech normal and activity/motor behavior normal Speech: normal speech Thought process: normal thought process OB - DS: Summary Hospital Course Hospital Course: The patient is a 31 year old G 3 now P 2 at 39.5 weeks gestation that was admitted to the Center on 01/17/22 for SROM. She had an uncomplicated vaginal delivery. She delivered a viable female infant. The patient feels well.? The pain is well controlled with current medications.? She has no new complaints.? Urinary output is adequate and she is voiding without difficulty.? Has a good appetite, is tolerating a general diet, is passing flatus, and has not had a bowel movement.? Has?small amount of rubra lochia.? She is ambulating well.?She is breast feeding and denies concerns at this time. the patient has done well. Discharge Criteria?met Patient has no complaints? No active bleeding?? Doing well? Discharge Medication Orders:? No New Medication Orders? She is requesting discharge home.? Peripartum Data delivery method: Vaginal Laceration description: Perineal - 1st Degree Episiotomy description: None complications: none [place] Infant Gender: Female Infant Discharge Plan: Home Status at Discharge Functional status at discharge: independent ambulation Overall status at discharge: patient is progressing back to baseline Time Spent with Patient Time attestation: Total time spent providing and/or coordinating discharge services: Discharge Plan Discharge Disposition: Home, Self-Care Date of Admission: 01/17/22 16:48 Primary Care Provider: Moni Gross Condition: Stable Anticipated Discharge Date/Time: 01/19/22 12:00 Discharge Medications: New docusate sodium 100 mg Capsule 100 mg PO DAILY Qty: 90 0RF Rx Instructions: Take 1-2 tablets daily as needed for constipation. ibuprofen 600 mg Tablet 600 mg PO Q6H PRNQty: 60 0RF Continued prenat.vits,lalit,hwc-jdym-xnkko Tablet 1 tab PO QDAY Discharge Orders: Discharge Order (Routine); Ordered 01/19/22 Ordered By: Kayla Spear Patient Education: OB Vaginal/Breast Feeding Activity Restrictions/Additional Instructions: Discharge instructions were reviewed with the patient including signs and symptoms of infection and home going medications.? Off Work or School for 6 weeks.? ?? Symptoms to report to doctor:? -Bleeding that saturates more than one pad per hour? -Passing clots larger than the size of a golf ball? -Pain not relieved by prescribed medication? -Fever above 100.4 degrees Fahrenheit? -A foul vaginal odor? -Difficulty in emotions, mood and functions? -Thoughts of hurting yourself and/or ? -Painful, reddened area in your breast? -Any drainage, redness or tenderness in your IV/epidural site? -Severe headache that doesn't improve after taking medications? -Changes in vision, including temporary loss of vision, blurred vision, and/or light sensitivity? -Upper abdominal pain (usually under ribs on the right side)? -Decrease in urination or painful, frequent urinating? -Chest pain? -Shortness of breath? -Tenderness or pain with redness and/swelling in the calf(s) of your leg? ?? Follow Up in clinic in 2 and 6 weeks.? ?? consultation services are available to all mothers and babies for the first year after delivery.? To make an appointment, please call [phone].? Activity Level: No Restrictions and Activity as Tolerated Discharge Diet: Regular Follow Up Appointments: Jaja Dominguez CNM [Certified Nurse Biological Technical Officer] - Kayla Spear CNM [Certified Nurse Biological Technical Officer] - Forms: [employer] Info Instructions
[2022-01-19 08:45] VITALS: BP 119/78; PULSE 67; RESP 16; TEMP 36.7
== END 2022-01-19 11:10 | disposition home or self-care (01) | DRG 560 ==
LOC: OB OUT 16:50 → OB 16:50
PROVIDERS: Admitting Provider Advanced Practice Midwife; PCP Family Medicine; Visit Provider Advanced Practice Midwife
DX: O42.02 Full-term premature rupture of membranes, onset of labor within 24 hours of rupture (principal); O70.0 First degree perineal laceration during delivery; Z3A.39 39 weeks gestation of pregnancy; Z37.0 Single live birth
CPT/HCPCS: 36415; 85025; 86850; 86900; 86901; 87635; A9270; J3010; J7120

== ENCOUNTER 2022-10-29 09:25 | Outpatient (CLI) | payer OTHER, SELFPAY | END 2022-10-29 09:26 | disposition home or self-care (01) | PROVIDERS: PCP Family Medicine; Visit Provider Family Medicine | DX: Z13.6 Encounter for screening for cardiovascular disorders (principal); Z13.1 Encounter for screening for diabetes mellitus | CPT/HCPCS: 80061; 82947 ==

== ENCOUNTER 2023-01-18 13:44 | Outpatient (CLI) | payer OTHER, SELFPAY ==
--- NOTE | 2023-01-18 14:00 | CRLHL7_ITS ---
For Patients: As a result of the Century Cures Act, medical imaging exams and procedure reports are released immediately into your electronic medical record. You may view this report before your referring provider. If you have questions, please contact your health care provider. INDICATION: Dating and viability, 8 weeks 2 days gestation by LMP TECHNIQUE: Ultrasound OB pelvis transvaginal. Real-time singh-scale imaging of the pelvis was performed. COMPARISON: None FINDINGS: Sonographic imaging demonstrates a single intrauterine gestation. No cardiac activity identified. The embryo`s crown rump length measurement of 1.8 cm corresponds to a gestational age of 8 weeks 2 days. There is a 2.8 x 5.3 x 0.6 cm subchorionic hemorrhage to the right of the gestational sac. There is a normal appearing yolk sac. There are no gross abnormalities noted within the embryo at this early state of development. The placenta has not yet developed. The amount of fluid within the sac appears appropriate for gestational age. The ovaries are of normal size. There are no suspicious fluid collections noted in the cul-de-sac. IMPRESSION: A gestational age of 8 weeks 2 days without cardiac activity indicates demise. There is also a subchorionic hemorrhage to the right of the gestational sac. Dictated by Kamryn Valle MD @ 01/18/2023 4:07:56 PM (Electronically Signed)
== END 2023-01-18 13:45 | disposition home or self-care (01) ==
LOC: US 13:45
PROVIDERS: Visit Provider Advanced Practice Midwife
DX: Z34.91 Encounter for supervision of normal pregnancy, unspecified, first trimester (principal); O20.9 Hemorrhage in early pregnancy, unspecified; O36.8310 Maternal care for abnormalities of the fetal heart rate or rhythm, first trimester, not applicable or unspecified; Z3A.08 8 weeks gestation of pregnancy
CPT/HCPCS: 76817

== ENCOUNTER 2023-02-11 14:22 | Outpatient (CLI) | payer OTHER, SELFPAY | END 2023-02-11 14:23 | disposition home or self-care (01) | LOC: NFLDREF 14:23 | PROVIDERS: Visit Provider Advanced Practice Midwife | DX: O02.1 Missed abortion (principal) | CPT/HCPCS: 84702 ==

== ENCOUNTER 2023-02-14 09:44 | Outpatient (CLI) | payer OTHER, SELFPAY | END 2023-02-14 09:45 | disposition home or self-care (01) | LOC: NFLDREF 02-16 13:24 | PROVIDERS: Visit Provider Advanced Practice Midwife | DX: O02.1 Missed abortion (principal) | CPT/HCPCS: 84702 ==

== ENCOUNTER 2023-02-18 09:58 | Outpatient (CLI) | payer OTHER, SELFPAY ==
--- NOTE | 2023-02-18 10:15 | CRLHL7_ITS ---
For Patients: As a result of the Century Cures Act, medical imaging exams and procedure reports are released immediately into your electronic medical record. You may view this report before your referring provider. If you have questions, please contact your health care provider. INDICATION: MISSED COMPARISON: 01/18/2023 TECHNIQUE: Real-time singh-scale imaging of the pelvis was performed. FINDINGS: Transvaginal sonography of the pelvis. pole is present measuring 1.5 cm, 8 weeks 0 days, decreased in size compared to the prior study. Gestational sac is irregular. No heart tones. Ovaries are normal. Left-sided subchorionic hemorrhage measuring 1.7 x 3.1 x 1.0 cm. IMPRESSION: Persistent intrauterine demise. Subchorionic hemorrhage again noted. Dictated by Ravindra Shelton MD @ 02/18/2023 3:53:15 PM (Electronically Signed)
== END 2023-02-18 09:59 | disposition home or self-care (01) ==
LOC: US 09:58
PROVIDERS: Visit Provider Advanced Practice Midwife
DX: O02.1 Missed abortion (principal)
CPT/HCPCS: 76817

== ENCOUNTER 2023-02-22 08:30 | Day surgery (SDC) | payer OTHER, SELFPAY ==
[2023-02-22 08:48] VITALS: BMI 28.8
[2023-02-22 08:59] LABS: Hemoglobin* 13.9 gm/dL (12.0-16.0)
[2023-02-22 09:00] VITALS: BP 132/81; PULSE 71; RESP 16; TEMP 36.9; O2SAT 100
[2023-02-22] MEDS: DOXYCYCLINE HYCLATE 200 MG in 0.9 % SODIUM CHLORIDE Mini-bag 100 ML 100 MG IVPB (09:05)
[2023-02-22] MEDS: SODIUM CHLORIDE 0.9 % (FLUSH) 10 ML SYRINGE IVF (09:05)
[2023-02-22] MEDS: LACTATED RINGERS 1000 ML 1,000 ML 100 ML IV (09:05)
--- NOTE | 2023-02-22 09:32 | W.ANESCHARGE ---
Anesthesia Charges Start Date/Time Anesthesia Start Date: 02/22/23 Anesthesia Start Time: 09:53 Stop Date/Time Anesthesia Stop Date: 02/22/23 Anesthesia Stop Time: 10:38
--- NOTE | 2023-02-22 09:40 | P.GYNPRC_ITS ---
Procedure Note Time Seen by Provider: 09:41 Date of procedure: 02/22/23 Pre-op diagnosis: Missed Post-op diagnosis: same Procedure: Suction dilation and curettage Anesthesia: MAC and local Complications: None Surgeon: Nick Castillo MD Chocolate Production Machine Operator: Jenna Le Estimated blood loss (mL): 100 IV fluids (mL): 900 Pathology: specimen obtained, sent to pathology (Cytogenetic evaluation ordered) Condition: stable Disposition: same day Findings: 8 week size, anteverted uterus on bimanual exam Homogenous and thin endometrial stripe on post-procedure transabdominal US Procedure Description: After verifying written informed consent, the patient was taken to the operating room. A time-out was completed to verify correct patient and procedure. Anesthesia was induced and found to be adequate. She was placed in the dorsal high lithotomy position in [place] with care taken to avoid neurologic injury. She did receive a preoperative dose of doxycycline per protocol. She was prepared and draped in the usual sterile fashion. A surgical pause was conducted to confirm correct patient and procedure. Bimanual exam performed revealing anteverted uterus, 8 weeks size. Metal speculum was inserted. The cervix was identified and grasped with a single-tooth tenaculum. A paracervical block was applied with 1% lidocaine. The cervix was serially dilated to accommodate a No. 8 curved curette. Suction curette was inserted without difficulty. The intrauterine contents were aspirated until there was no further return of tissue and uterine cri, across 3 total passes. Transabdominal ultrasound was performed documenting a thin, uniform endometrial stripe. Photo printed to be scanned into medical record. Excellent hemostasis from the uterus was noted. Tenaculum was removed from the cervix. Cervix was made hemostatic with gentle pressure and silver nitrate. Sponge and instrument count was correct. The patient was transferred to the recovery room in excellent condition. Products of conception were submitted for routine pathology and cytogenetic evaluation - confirmed by myself and TAR CHASER. Debrief completed.
[2023-02-22] MEDS: LIDOCAINE 1% MDV 20 ML INJECTION (10:09)
[2023-02-22] MEDS: SILVER NITRATE APPLICATOR 1 EACH STICK..EA. TOPICAL (10:23)
[2023-02-22 10:35] VITALS: BP 113/69; PULSE 71; RESP 16; TEMP 37.1; O2SAT 99
[2023-02-22 10:45] VITALS: BP 117/72; PULSE 54; RESP 16; O2SAT 99
--- NOTE | 2023-02-22 10:51 | PM.GYNDS1 ---
DS: Providers Provider Time Seen by Provider: 10:51 Date Seen: 02/22/23 Primary care physician: Aletha Anderson MD Attending Physician on discharge: MD Nick Hyatt MD DS: Diagnosis Discharge Diagnosis (1) Missed with demise before 20 completed weeks of gestation: Status: Acute Problem details: s/p suction dilation and curettage for missed measuring 8 weeks. Uncomplicated procedure, well tolerated. Pathology specimen submitted and cytogenetics ordered. EDUCATION INSTRUCTOR-Discharge Summary Hospital Course Hospital Course Narrative: Patient is a 32 year old seen for same-day surgery including suction dilation and curettage in the setting of a missed . Indication for surgery: Missed . Intraoperative findings were notable for anteverted uterus, 8 weeks in size by bimanual exam. Thin and homogeneous endometrial stripe at completion of procedure. She had an uncomplicated surgery. Postoperative course has been uneventful. Vitals have been stable. She has remained afebrile. She is meeting all appropriate postop milestones - pain control, p.o. intake, ambulation and urination. Discharge to home. Time Spent with Patient Time attestation: Total time spent providing and/or coordinating discharge services: Time spent: Less than 30 minutes EDUCATION INSTRUCTOR - Exam Physical Exam: Vital signs: Temp Pulse Resp BP Pulse Ox O2 Del Method 98.8 F 71 68 H 113/69 99 Room Air 02/22/23 10:35 02/22/23 10:35 02/22/23 10:35 02/22/23 10:35 02/22/23 10:35 02/22/23 10:35 EDUCATION INSTRUCTOR - DS: Data Data Completed and Pending Completed studies during hospitalization: Procedures Delivery of Products of Conception, External Approach (01/17/22) Labs on day of discharge: Labs from last 24 hours 02/22/23 08:52 Hgb 13.9 Blood Type A Positive Antibody Screen NEGATIVE Procedures Procedures: Procedures Operation Date: 02/22/23 09:55 Actual Procedure Side Surgeon p Suction Uterine Curettage under ultrasound guidance Not Applicable Jenna Le MD Discharge Plan Discharge Disposition: Home, Self-Care Discharging Surgeon: Mami Castillo Follow-Up Appointment: 03/08 @ 12:[facility]pm [facility] Prescriptions: No Action No Known Home Medications Activity Level: Activity as Tolerated Activity Detail: Pelvic rest for 2 weeks or until follow up exam. Pain control: Over the counter Motrin 600 mg by mouth every six hours on a full stomach for pain as needed *Do not take until after 2:30pm* Over the counter Acetaminophen 1000 mg by mouth every six hours on a full stomach for pain as needed Discharge Diet: Regular Patient Instructions: Deep Sedation (DC), Dilation and Curettage (DC) Follow-up: Jenna Le MD [Staff Physician] - Discharge Orders: Discharge Order (Routine); Ordered 02/22/23 Ordered By: Mami Castillo
[2023-02-22 11:00] VITALS: BP 122/68; PULSE 58; RESP 16; O2SAT 99
[2023-02-22 11:15] VITALS: BP 120/65; PULSE 62; RESP 16; O2SAT 99
--- NOTE | 2023-02-22 11:37 | W.ANESCHARGE ---
Anesthesia Charges Start Date/Time Anesthesia Start Date: 02/22/23 Anesthesia Start Time: 09:53 Stop Date/Time Anesthesia Stop Date: 02/22/23 Anesthesia Stop Time: 10:38
== END 2023-02-22 11:40 | disposition home or self-care (01) ==
PROVIDERS: PCP Obstetrics & Gynecology; Visit Provider Obstetrics & Gynecology
PROC: (CPT 59820; principal; 2023-02-22 09:45)
DX: O02.1 Missed abortion (principal)
CPT/HCPCS: 59820; 00940; 01965; 36415; 81229; 85018; 86850; 86900; 86901; A9270; J1100; J1885; J2250; J2405; J2704; J3010; J7120

== ENCOUNTER 2023-03-11 10:42 | Outpatient (CLI) | payer OTHER, SELFPAY | END 2023-03-11 10:43 | disposition home or self-care (01) | LOC: NFLDREF 03-14 11:14 | PROVIDERS: Visit Provider Obstetrics & Gynecology | DX: N93.9 Abnormal uterine and vaginal bleeding, unspecified (principal) | CPT/HCPCS: 84702 ==

== ENCOUNTER 2023-03-17 08:49 | Outpatient (CLI) | payer OTHER, SELFPAY | END 2023-03-17 08:50 | disposition home or self-care (01) | LOC: NFLDREF 03-21 00:54 | PROVIDERS: Visit Provider Obstetrics & Gynecology | DX: O02.1 Missed abortion (principal) | CPT/HCPCS: 84702 ==

== ENCOUNTER 2023-03-25 09:41 | Outpatient (CLI) | payer OTHER, SELFPAY | END 2023-03-25 09:42 | disposition home or self-care (01) | LOC: NFLDREF 03-28 08:20 | PROVIDERS: Visit Provider Obstetrics & Gynecology | DX: O02.1 Missed abortion (principal) | CPT/HCPCS: 84702 ==

== ENCOUNTER 2023-04-25 08:45 | Outpatient (CLI) | payer OTHER, SELFPAY | END 2023-04-25 08:46 | disposition home or self-care (01) | LOC: NFLDREF 04-27 07:26 | PROVIDERS: Visit Provider Obstetrics & Gynecology | DX: O01.9 Hydatidiform mole, unspecified (principal) | CPT/HCPCS: 84702 ==

== ENCOUNTER 2023-07-07 08:05 | Outpatient (CLI) | payer OTHER, SELFPAY ==
--- OUTSIDE RECORDS SUMMARY | 2023-07-07 08:08 | XMS_ITS | Clinical Summary ---
Author Name Unknown Organization [employer] [facility] Address [place], [place] [address] Care Team Providers Care Biomedical Instrument Technician Name Role Phone Fanta Sarmiento MD Primary Care Provider [phone] Allergies Active Allergy Reactions Criticality Noted Date Comments Neomycin-Polymyxin B-Dexameth Edema,Erythema Medications No known medications Active Problems Problem Noted Date Diagnosed Date Family planning 04/09/2015 Myopia 08/24/2012 Resolved Problems Problem Noted Date Diagnosed Date Resolved Date Supervision of normal first 07/23/2011 03/27/2012 Overview: Boy by US GBS neg Major depression, single episode 03/06/2009 02/21/2012 Immunizations Name Administration Dates Next Due DTP 09/12/1997, 4,01/19/1993,1992,1992,1992 DTP-HIB 09/16/1993,01/19/1993,1992 DTaP 09/12/1997 HIB HbOC (HibTITER) 1992,1992 HIB PRP-D (ProHIBIT) 01/19/1993,10/30/18 93,1992,1992 Hepatitis A (Adult) 09/15/2015 Hepatitis B (Peds) 12/21/1996,07/23/1996, 997 Human Papilloma Virus Vaccine 07/31/2008, 008,01/05/2008 Inactivated Polio Vaccine 09/12/1997,,1992,1992 Influenza A (H1N1), Inactiva axel (Age >=3 Years) 02/21/2020 Influenza, IIV3 (Age 6-35 mos) 03/05/2011 Influenza, IIV3 (Age >=3 years) 03/22/2013,02/01,03/05/2011 Influenza, IIV4 04/05/2018,03/03/2015,03/14/2014 MMR 06/13/2002,09/16/1993,1992 Oral Polio Vaccine 09/12/1997, 4,1992,1992 Td, Preservative Free (age > = 7 Years) 04/09/2015 Tdap 12/29/2004 Typhoid (injectable) 09/15/2015 Family History Medical History Relation Name Comments Good Health Brother 2 Good Health Father Pulmonary fibrosis Maternal Grandmother o xygen Good Health Mother Leukemia Paternal Grandfather Good Health Sister 2 Relation Name Status Comments Brother 1 Alive Brother 2 Father Alive Maternal Grandmother Mother Alive Paternal Grandfather Sister 1 Alive Sister 2 Son Alive Social History Tobacco Use Types Packs/Day Years Used Date Smoking Tobacco: Never Smokeless Tobacco: Never Tobacco Cessation:Counseling Given: Yes Alcohol Use Standard Drinks/Week Comments Not Currently 0 (1 standard drink = 0.6 oz pur e alcohol) occasional PHQ-2 Answer Date Recorded PHQ-2 TOTAL SCORE 0 06/09/2020 Social Connections Answer Date Recorded Frequency of Communication with Friends and Fami ly Not on file 05/14/2021 Financial Resource Strain Answer Date R ecorded Difficulty of Paying Living Expenses Not on file 05/14/2021 Difficulty of Paying Living Expenses Not on file 05/14/2021 Sex and Gender Information Value Date Recorded Sex Assigned at Not on file Gender Identity Not on file Sexual Orientation Not on file Obstetrics History Para Term AB IAB SAB Ectopic Multiple Livin g Live Births 3 1 1 0 1 0 1 0 0 1 1 Date Outcome GA Total Labor Labor/2nd/3rd Weight Sex Delivery Anes PTL Airane A1 A5 Name Cl in 03/07 Term 38w 0d 18h 00m/ 3.35 kg (7 lb 6 oz) M Vag Rosalba ng Carso n Comments:System Genera axel. Please review and update details. 06/24 SAB Comments:System Genera axel. Please review and update details. Last Filed Vital Signs Vital Sign Reading Time Taken Comments Blood Pressure 102/68 06/09/2020 3:27 PM COUNTER SERVER Pulse 72 06/09/2020 3:27 PM COUNTER SERVER Temperature 36.1 ??C (97 ??F) 04/05/2018 11:33 AM COUNTER SERVER Respiratory Rate 12 08/01/2015 9:31 AM COUNTER SERVER Oxygen Saturation 100% 04/05/2018 11:33 AM COUNTER SERVER Inhaled Oxygen Concentration - - Weight 78.1 kg (172 lb 3.2 oz) 06/09/2020 3:27 P M COUNTER SERVER Height 170.2 cm (5' 7) 06/09/2020 3:27 PM COUNTER SERVER Body Mass Index 26.97 06/09/2020 3:27 PM COUNTER SERVER Plan of Treatment Health Maintenance Due Date Last Done Comments Hepatitis C screening for age 18-79 2010 BMI (ht and wt on same day) for age 18+ 06/09/2021 06/09/2020, 02/14/2019, 04/05/2018, Additional history exists Depression screening for age 12+ 06/09/2021 06/09/2020, 04/05/2018, 08/01/2015 COVID-19 vaccine series (2022- season) 2023 08/21/2020 Influenza for age 9-49 01/21/2023 0, 04/05/2018, 03/03/2015, Additional history exists Pap test for age 21-65 03/02/2025 2, 03/02/2022, 02/14/2019, Additional history exists Tetanus booster 04/09/2025 04/09/2015, 12/29/2004 Tdap Completed 12/29/2004 HIV for age 15-65 Completed 08/03/2011 Pneumococcal series for age 6-64 Aged Out No longer eligible based on patient's age to complete this topic Care Teams Biomedical Instrument Technician Relationship Specialty Start Date End Date Fanta Sarmiento MD [address] [facility] [place] [address] PCP - General 12/19/07
--- NOTE | 2023-07-07 08:15 | US_ITS ---
Patient: ARLETH GONZALEZ Facility:?[facility] RIS Patient ID:?[id number] Site Patient ID:?[id number]. Site :?1990 Study:?US-OB Pelvis DATING AND VIABILITY-07/07/2023 8:41:24 AM Ordering Physician:?THA GARSIA Final Report: INDICATION: First trimester scan, establish dates. COMPARISON: None. TECHNIQUE: Real-time singh-scale imaging of the pelvis was performed. FINDINGS: There is a single living intrauterine with a crown-rump length of 1.6 cm and sonographic age of 8 weeks 0 days. Estimated due date by sonography is 02/16/2024. heart rate 150 beats per minute. Normal yolk sac. Right ovary measures 4.8 x 2.3 x 2.8 cm and left ovary measures 3.0 x 1.5 x 2.3 cm. Corpus luteal cyst is present on the right. Left uterine fibroid is present measuring 9 x 7 x 8 millimeters. Subchorionic hemorrhage is present measuring 1.6 x 1.4 x 2.2 cm. Umbilical cord cyst is noted measuring 4 x 4 x 4 millimeters. IMPRESSION: Single living intrauterine with sonographic gestational age 8 weeks 0 days and sonographic due date of 02/16/2024. 1.6 x 1.4 x 2.2 cm subchorionic hemorrhage. Umbilical cord cyst measuring 4 millimeters. Dictated by Ravindra Shelton MD @ 07/07/2023 10:22:21 AM Signed by:?Ravindra Shelton MD @07/07/2023 10:22:21 AM (Electronic Signature)
== END 2023-07-07 08:06 | disposition home or self-care (01) ==
PROVIDERS: Visit Provider Advanced Practice Midwife
DX: Z34.91 Encounter for supervision of normal pregnancy, unspecified, first trimester (principal); O20.9 Hemorrhage in early pregnancy, unspecified; Z3A.08 8 weeks gestation of pregnancy
CPT/HCPCS: 76817; 86592; 86703; 86704; 86706; 86762; 86787; 86803; 86850; 86900; 86901; 87086; 87340

== ENCOUNTER 2023-07-20 12:38 | Outpatient (CLI) | payer OTHER, SELFPAY ==
--- NOTE | 2023-07-20 13:00 | US_ITS ---
Patient: ARLETH BENSON LISA Facility:?[facility] RIS Patient ID:?[id number] Site Patient ID:?[id number]. Site :?1990 Study:?US-OB Pelvis OB TV-07/20/2023 1:25:07 PM Ordering Physician:?THA GARSIA Final Report: INDICATION: Follow-up umbilical cord cyst. COMPARISON: 07/07/2023 ultrasound Technique multiple transvaginal grayscale and color Doppler images obtained. FINDINGS: Examination shows a single intrauterine gestation. Umbilical cord appears normal. Previously seen cyst is not present. Subchorionic hemorrhage has nearly resolved. MEASUREMENTS: Right ovary measures 4.7 x 2.5 x 2.9 cm. Corpus luteum present. Left ovary measures 3.5 x 1.6 x 1.7 cm. EARLY GESTATION MEASUREMENTS: [place]-rump length 3.2 cm, AGA of 10 weeks, 0 days. Mean gestational sac 5.0 cm, AGA of 10 weeks, 5 days. Delete yolk sac: 4.9 mm. Heart Rate: 167 bpm. IMPRESSION: 1. Previously seen umbilical cord cyst is not present on this exam. 2. Subchorionic hemorrhage has nearly resolved. 3. Measurements consistent with 10 week 0 day gestational age. Dictated by Moises Patino MD @ 07/20/2023 3:25:26 PM Signed by:?Moises Patino MD @07/20/2023 3:25:26 PM (Electronic Signature)
== END 2023-07-20 12:39 | disposition home or self-care (01) ==
LOC: US 12:40
PROVIDERS: Visit Provider Advanced Practice Midwife
DX: O35.9XX0 Maternal care for (suspected) fetal abnormality and damage, unspecified, not applicable or unspecified (principal); O20.9 Hemorrhage in early pregnancy, unspecified; Z3A.10 10 weeks gestation of pregnancy
CPT/HCPCS: 76817

== ENCOUNTER 2023-09-29 13:15 | Outpatient (CLI) | payer OTHER, SELFPAY ==
--- NOTE | 2023-09-29 13:00 | US_ITS ---
Patient: ARLETH GONZALEZ Facility:?[facility] Patient ID:?[id number] Site Patient ID:?[id number]. Site :?1990 Study:?US-OB Pelvis BFAS-09/29/2023 2:10:35 PM Ordering Physician:LAURI GARSIA Final Report: INDICATION: Evaluate anatomy. COMPARISON: 07/20/2023 TECHNIQUE: Real time singh scale imaging of the fetus was performed as well as color Doppler analysis of the umbilical vessels. FINDINGS: Sonographic imaging demonstrates a single living intrauterine gestation. Fetus demonstrates a regular cardiac rate of 145 beats per minute. Fetus has a variable position. The placenta lies anteriorly without evidence of placenta previa. Placental edge 4.1 cm from the internal cervical os. Amniotic fluid volume appears normal. Single deepest vertical pocket: 4.7 cm. The cervix is closed and measures 5.3 cm in length. The composite ultrasound gestational age is calculated at 20 weeks 2 days with an estimated sonographic due date of 02/14/2024. The estimated weight is 354 grams which lies at the 84th %. The following biometric measurements were obtained: Biparietal diameter: 4.6 cm/20 weeks 0 days 60th% Head circumference: 17.1 cm/19 weeks 5 days 40th% Abdominal circumference: 15.4 cm/20 weeks 4 days 72nd% Femur length: 3.4 cm/20 weeks 4 day 72nd% The HC/AC ratio measures: 1.11 range (1.07-1.25) On anatomic survey, there is a normal appearance of the cerebral ventricles, cavum septi pellucidi, cisterna magna and cerebellum. The nose, lips, and facial profile appear normal. The cervical, thoracic and lumbar spine are well visualized and appear normal. There is a normal four-chamber heart view and the left and right ventricular outflow tracts appear normal. The diaphragm and stomach appear normal. The kidneys and bladder also appear normal. There is a normal three-vessel cord and cord insertion site. The four extremities appear normal. IMPRESSION: Normal OB ultrasound exam with concordance of clinical and sonographic dating. No intrinsic abnormalities noted on anatomic survey. Dictated by Ravindra Shelton MD @ 09/30/2023 5:22:36 PM Signed by:?Ravindra Shelton MD @09/30/2023 5:22:36 PM (Electronic Signature)
--- OUTSIDE RECORDS SUMMARY | 2023-09-29 13:22 | XMS_ITS | Clinical Summary ---
Author Name Unknown Organization [employer] [facility] Address [place], [place] [address] Care Team Providers Care Turbine Room Attendant Name Role Phone Fanta Sarmiento MD Primary Care Provider [phone] Allergies Active Allergy Reactions Criticality Noted Date [...] Labor Labor/2nd/3rd Weight Sex Delivery Anes PTL Ariane A1 A5 Name Cl in 03/07 Term 38w 0d 18h 00m/ 3.35 kg (7 lb 6 oz) M Vag Rosalba ng Carso n Comments:System Genera axel. Please review and update details. 06/24 SAB Comments:System Genera axel. Please review and update details. Last Filed Vital Signs Vital Sign Reading Time Taken Comments Blood Pressure 102/68 06/09/2020 3:27 PM SECOND HELPER Pulse 72 06/09/2020 3:27 PM SECOND HELPER Temperature 36.1 ??C (97 ??F) 04/05/2018 11:33 AM SECOND HELPER Respiratory Rate 12 08/01/2015 9:31 AM SECOND HELPER Oxygen Saturation 100% 04/05/2018 11:33 AM SECOND HELPER Inhaled Oxygen Concentration - - Weight 78.1 kg (172 lb 3.2 oz) 06/09/2020 3:27 P M SECOND HELPER Height 170.2 cm (5' 7) 06/09/2020 3:27 PM SECOND HELPER Body Mass Index 26.97 06/09/2020 3:27 PM SECOND HELPER Plan of Treatment Health Maintenance Due Date Last Done Comments Hepatitis C screening for age 18-79 2010 BMI (ht and wt on same day) for age 18+ 06/09/2021 06/09/2020, 02/14/2019, 04/05/2018, Additional history exists Depression screening for age 12+ 06/09/2021 06/09/2020, 04/05/2018, 08/01/2015 COVID-19 vaccine series (2022- season) 2023 08/21/2020 Influenza for age 9-49 01/22/2024 0, 04/05/2018, 03/03/2015, Additional history exists Pap test for age 21-65 03/02/2025 2, 03/02/2022, 02/14/2019, Additional history exists Tetanus booster 04/09/2025 04/09/2015, 12/29/2004 Tdap Completed 12/29/2004 HIV for age 15-65 Completed 08/03/2011 Pneumococcal series for age 6-64 Aged Out No longer eligible based on patient's age to complete this topic Procedures Procedure Name Priority Date/Time Associated Diagnosis Comments MANAGER RN CASE THIN PREP PAP SCREEN IMAGED Routine 03/02/2022 12:20 PM CDT ANTI HIV 1/2 Routine 08/03/2011 12:34 PM CDT Supervision of normal first from Last 3 Months or Most Recently Relevant to Health Maintenance Results * MANAGER RN CASE THIN PREP PAP SCREEN IMAGED (03/02/2022 12:20 PM CDT) Case Report Gynecologic Cytology Report ? Case: [id number] ? Authorizing Provider: ??Bhumi Lorenzo CNM ? Collected: ? 03/02/2022 1220 ? Ordering Location: ? [facility] ?Received: ?03/04/2022 09 ? First Screen: ?Matthew, Medina ? Rescreen: ?Rufino, Sophie ? Specimen: ?MANAGER RN CASE ThinPrep Vial Screening, Cervical ? 03/31/2022 3:48 PM SECOND HELPER [facility] ENTRAL LABORATORY INTERPRETATION/ RESULT NEGATIVE FOR INTRAEPITHELIAL LESION OR MALIGNANCY (NIL) (none) 03/31/2022 3:48 PM SECOND HELPER [facility] ENTRAL LABORATORY IMEN ADEQUACY Satisfactory for evaluation Endocervical component present Scant cellularity 03/31/2022 3:48 PM SECOND HELPER [facility] HPV REQUEST HPV and PAP 03/31/2022 3:48 PM SECOND HELPER [facility] [facility] Last Pap Date 03/31/2022 3:48 PM SECOND HELPER [facility] Comment:SEVERAL YEARS AGO Last Pap Result NIL 3:48 PM SECOND HELPER [facility] Abnormal Pap or [place] Bx in last 5 years No 03/31/2022 3:48 PM SECOND HELPER [facility] Menstrual Status 03/31/2022 3:48 PM SECOND HELPER [facility] [place] Bx Done Today No 03/31/2022 3:48 PM SECOND HELPER [facility] Additional Information 03/31/2022 3:48 PM SECOND HELPER [facility] Comment: Interpreted at [facility] - [address] [place] [address] S[address] [facility] [address] [address] Automated Review Successful 03/31/2022 3:48 PM SECOND HELPER [facility] Comment:Specimen processed s uccessfully by automated assistant clinical nurse manager device, ThinPrep Imaging System, [employer] ANCILLARY TESTING MANAGER RN CASE HPV Ordered, Please see separate report 03/31/2022 3:48 PM SECOND HELPER [facility] Note The pap test is a screening technique, not a diagnostic procedure. It is used primarily to screen for squamous cancers and precursor lesions. Published studies have shown that it is subject to both false negative and false positive results. The pap test should not be used as the sole means to diagnose or exclude pre-malignant and malignant lesions. 03/31/2022 3:48 PM SECOND HELPER [facility] Other (Cervical) 03/02/2022 12:20 PM CDT 03/04/2022 9:12 AM CDT Bhumi Lorenzo CNM PATHOLOGY/CYTOLOGY [facility] [address] [place] [address], * ANTI HIV 1/2 (08/03/2011 12:34 PM CDT) ANTI HIV 1/2 Non-reacti ve [facility] Blood specimen (specimen) BLOOD SPECIMEN / Unknown 08/03/2011 12:34 PM CDT 08/03/2011 12:22 PM CDT Fanta Brooke RESIDENT DIRECTOR SEND OUTS [facility] [place]NAL ZIP [id number] [place] [address] from Last 3 Months or Most Recently Relevant to Health Maintenance Care Teams Turbine Room Attendant Relationship Specialty Start Date End Date Fanta Sarmiento MD [address] [place] [address] PCP - General 12/19/07
== END 2023-09-29 13:16 | disposition home or self-care (01) ==
LOC: US 13:15
PROVIDERS: Visit Provider Advanced Practice Midwife
DX: Z34.92 Encounter for supervision of normal pregnancy, unspecified, second trimester (principal); Z3A.20 20 weeks gestation of pregnancy
CPT/HCPCS: 76805

== ENCOUNTER 2023-11-28 08:35 | Outpatient (CLI) | payer OTHER, SELFPAY ==
--- OUTSIDE RECORDS SUMMARY | 2023-11-30 00:11 | XMS_ITS | Clinical Summary ---
Author Organization [employer] [facility] Address [place], [place] [address] Care Team Providers Care Scow Captain Name Role Phone Fanta Sarmiento MD Primary Care Provider [phone] Allergies Active Allergy Reactions Criticality Noted Date [...] Outcome GA Total Labor Labor/2nd/3rd Weight Sex Type Anes PTL Ariane A1 A5 Name Clin 012 Term 38w 0d 18h 00m/ 3.35 kg (7 lb 6 oz) M Vag Livin g Oliverio Comments:System Genera axel. Please review and update details. 015 SAB Comments:System Genera axel. Please review and update details. Last Filed Vital Signs Vital Sign Reading Time Taken Comments Blood Pressure 102/68 06/09/2020 3:27 PM QUILTER FIXER Pulse 72 06/09/2020 3:27 PM QUILTER FIXER Temperature 36.1 ??C (97 ??F) 04/05/2018 11:33 AM QUILTER FIXER Respiratory Rate 12 08/01/2015 9:31 AM QUILTER FIXER Oxygen Saturation 100% 04/05/2018 11:33 AM QUILTER FIXER Inhaled Oxygen Concentration - - Weight 78.1 kg (172 lb 3.2 oz) 06/09/2020 3:27 P M QUILTER FIXER Height 170.2 cm (5' 7) 06/09/2020 3:27 PM QUILTER FIXER Body Mass Index 26.97 06/09/2020 3:27 PM QUILTER FIXER Plan of Treatment Health Maintenance Due Date Last Done Comments Hepatitis C screening for age 18-79 2010 BMI (ht and wt on same day) for age 18+ 06/09/2021 06/09/2020, 02/14/2019, 04/05/2018, Additional history exists Depression screening for age 12+ 06/09/2021 06/09/2020, 04/05/2018, 08/01/2015 COVID-19 vaccine series ( season) 2023 08/21/2020 Influenza for age 9-49 [...] Procedure Name Priority Date/Time Associated Diagnosis Comments ADJUTANT GENERAL THIN PREP PAP SCREEN IMAGED Routine 03/02/2022 12:20 PM CDT ANTI HIV 1/2 Routine 08/03/2011 12:34 PM CDT Supervision of normal first from Last 3 Months or Most Recently Relevant to Health Maintenance Results * ADJUTANT GENERAL THIN PREP PAP SCREEN IMAGED (03/02/2022 12:20 PM CDT) Case Report Gynecologic Cytology Report ? Case: [id number] ? Authorizing Provider: ??Bhumi Lorenzo CNM ? Collected: ? 03/02/2022 1220 ? Ordering Location: ? [facility] ?Received: ?03/04/2022 0912 ? First Screen: ?[place] Castro ? Rescreen: ?Rufino, Sophie ? Specimen: ?ADJUTANT GENERAL ThinPrep Vial Screening, Cervical ? 03/31/2022 3:48 PM QUILTER FIXER [facility]-C ENTRAL LABORATORY INTERPRETATION/ RESULT NEGATIVE FOR INTRAEPITHELIAL LESION OR MALIGNANCY (NIL) (none) 03/31/2022 3:48 PM QUILTER FIXER [facility] ENTRAL LABORATORY IMEN ADEQUACY Satisfactory for evaluation Endocervical component present Scant cellularity 03/31/2022 3:48 PM QUILTER FIXER [facility] HPV REQUEST HPV and PAP 03/31/2022 3:48 PM QUILTER FIXER [facility] Last Pap Date 03/31/2022 3:48 PM QUILTER FIXER [facility] Comment:SEVERAL YEARS AGO Last Pap Result NIL 3:48 PM QUILTER FIXER [facility] Abnormal Pap or [place] Bx in last 5 years No 03/31/2022 3:48 PM QUILTER FIXER [facility] Menstrual Status 03/31/2022 3:48 PM QUILTER FIXER [facility] [place] Bx Done Today No 03/31/2022 3:48 PM QUILTER FIXER [facility] Additional Information 03/31/2022 3:48 PM QUILTER FIXER [facility] Comment: Interpreted at [facility] - [address] [place] [address] S[facility] [address], [place] [address] Automated Review Successful 03/31/2022 3:48 PM QUILTER FIXER [facility] Comment:Specimen processed s uccessfully by automated children's program coordinator device, ThinPrep Imaging System, [employer] ANCILLARY TESTING ADJUTANT GENERAL HPV Ordered, Please see separate report 03/31/2022 3:48 PM QUILTER FIXER [facility] Note The pap test is a screening technique, not a diagnostic procedure. It is used primarily to screen for squamous cancers and precursor lesions. Published studies have shown that it is subject to both false negative and false positive results. The pap test should not be used as the sole means to diagnose or exclude pre-malignant and malignant lesions. 03/31/2022 3:48 PM QUILTER FIXER [facility] Other (Cervical) 03/02/2022 12:20 PM CDT 03/04/2022 9:12 AM CDT Bhumi Lorenzo CNM PATHOLOGY/CYTOLOGY [facility] [address] [place] [address], * ANTI HIV 1/2 (08/03/2011 12:34 PM CDT) ANTI HIV 1/2 Non-reacti ve [facility] Blood specimen (specimen) BLOOD SPECIMEN / Unknown 08/03/2011 12:34 PM CDT 08/03/2011 12:22 PM CDT Fanta Brooke SENIOR APPLICATION SOFTWARE ENGINEER SEND OUTS [facility] INTERNAL ZIP [id number] [place] [address] from Last 3 Months or Most Recently Relevant to Health Maintenance Care Teams Scow Captain Relationship Specialty Start Date End Date Fanta Sarmiento MD [address] [facility] [address] [place] [address] PCP - General 12/19/07
== END 2023-11-28 08:36 | disposition home or self-care (01) ==
LOC: NFLDREF 11-30 00:10
PROVIDERS: Visit Provider Advanced Practice Midwife
DX: Z34.83 Encounter for supervision of other normal pregnancy, third trimester (principal)
CPT/HCPCS: 86592

== ENCOUNTER 2024-01-26 09:14 | Outpatient (CLI) | payer OTHER, SELFPAY ==
--- OUTSIDE RECORDS SUMMARY | 2024-01-26 09:17 | XMS_ITS | Clinical Summary ---
Author Organization [employer] [facility] Address [place] [id number] 07 Care Team Providers Care Field Service Representative Name Role Phone Fanta Sarmiento MD Primary Care Provider Allergies Active Allergy Reactions Criticality Noted Date [...] Comments Blood Pressure 102/68 06/09/2020 3:27 PM ADVANCED PRACTICE NURSE PSYCHOTHERAPIST Pulse 72 06/09/2020 3:27 PM ADVANCED PRACTICE NURSE PSYCHOTHERAPIST Temperature 36.1 ??C (97 ??F) 04/05/2018 11:33 AM ADVANCED PRACTICE NURSE PSYCHOTHERAPIST Respiratory Rate 12 08/01/2015 9:31 AM ADVANCED PRACTICE NURSE PSYCHOTHERAPIST Oxygen Saturation 100% 04/05/2018 11:33 AM ADVANCED PRACTICE NURSE PSYCHOTHERAPIST Inhaled Oxygen Concentration - - Weight 78.1 kg (172 lb 3.2 oz) 06/09/2020 3:27 P M ADVANCED PRACTICE NURSE PSYCHOTHERAPIST Height 170.2 cm (5' 7) 06/09/2020 3:27 PM ADVANCED PRACTICE NURSE PSYCHOTHERAPIST Body Mass Index 26.97 06/09/2020 3:27 PM ADVANCED PRACTICE NURSE PSYCHOTHERAPIST Plan of Treatment Health Maintenance Due Date Last Done Comments Hepatitis C screening for age 18-79 2010 BMI (ht and wt on same day) for age 18+ 06/09/2021 06/09/2020, 02/14/2019, 04/05/2018, Additional history exists Depression screening for age 12+ 06/09/2021 06/09/2020, 04/05/2018, 08/01/2015 COVID-19 vaccine series ( season) 2024 08/21/2020 Influenza for age 9-49 01/22/2024 0, [...] Procedure Name Priority Date/Time Associated Diagnosis Comments IT BUSINESS ANALYST THIN PREP PAP SCREEN IMAGED Routine 03/02/2022 12:20 PM CDT ANTI HIV 1/2 Routine 08/03/2011 12:34 PM CDT Supervision of normal first from Last 3 Months or Most Recently Relevant to Health Maintenance Results * IT BUSINESS ANALYST THIN PREP PAP SCREEN IMAGED (03/02/2022 12:20 PM CDT) Case Report Gynecologic Cytology Report ? Case: [id number] ? Authorizing Provider: ??Bhumi Lorenzo CNM ? Collected: ? 03/02/2022 1220 ? Ordering Location: ? [facility] ?Received: ?03/04/2022 0912 ? First Screen: ?Medina Castro ? Rescreen: ?Rufino, Sophie ? Specimen: ?IT BUSINESS ANALYST ThinPrep Vial Screening, Cervical ? 03/31/2022 3:48 PM ADVANCED PRACTICE NURSE PSYCHOTHERAPIST [facility] ENTRAL [facility]AT[facility] INTERPRETATION/ RESULT NEGATIVE FOR INTRAEPITHELIAL LESION OR MALIGNANCY (NIL) (none) 03/31/2022 3:48 PM ADVANCED PRACTICE NURSE PSYCHOTHERAPIST [facility] ENTRAL LAB[facility] IMEN ADEQUACY Satisfactory for evaluation Endocervical component present Scant cellularity 03/31/2022 3:48 PM ADVANCED PRACTICE NURSE PSYCHOTHERAPIST [facility] HPV REQUEST HPV and PAP 03/31/2022 3:48 PM ADVANCED PRACTICE NURSE PSYCHOTHERAPIST [facility] Last Pap Date 03/31/2022 3:48 PM ADVANCED PRACTICE NURSE PSYCHOTHERAPIST [facility] Comment:SEVERAL YEARS AGO Last Pap Result NIL 3:48 PM ADVANCED PRACTICE NURSE PSYCHOTHERAPIST [facility] Abnormal Pap or [place] Bx in last 5 years No 03/31/2022 3:48 PM ADVANCED PRACTICE NURSE PSYCHOTHERAPIST [facility] Menstrual Status 03/31/2022 3:48 PM ADVANCED PRACTICE NURSE PSYCHOTHERAPIST [facility] [place] Bx Done Today No 03/31/2022 3:48 PM ADVANCED PRACTICE NURSE PSYCHOTHERAPIST [facility] Additional Information 03/31/2022 3:48 PM ADVANCED PRACTICE NURSE PSYCHOTHERAPIST [facility] Comment: Interpreted at [facility] - [address] [place] [address] [facility] [address] [address] Automated Review Successful 03/31/2022 3:48 PM ADVANCED PRACTICE NURSE PSYCHOTHERAPIST [facility] Comment:Specimen processed s uccessfully by automated pipe fitter soft copper device, ThinPrep Imaging System, [employer] ANCILLARY TESTING IT BUSINESS ANALYST HPV Ordered, Please see separate report 03/31/2022 3:48 PM ADVANCED PRACTICE NURSE PSYCHOTHERAPIST [facility] Note The pap test is a screening technique, not a diagnostic procedure. It is used primarily to screen for squamous cancers and precursor lesions. Published studies have shown that it is subject to both false negative and false positive results. The pap test should not be used as the sole means to diagnose or exclude pre-malignant and malignant lesions. 03/31/2022 3:48 PM ADVANCED PRACTICE NURSE PSYCHOTHERAPIST [facility] Other (Cervical) 03/02/2022 12:20 PM CDT 03/04/2022 9:12 AM CDT Bhumi Lorenzo CNM PATHOLOGY/CYTOLOGY [facility] LAB[facility]ORY [address] [place] [address], * ANTI HIV 1/2 (08/03/2011 12:34 PM CDT) ANTI HIV 1/2 Non-reacti ve [facility] Blood specimen (specimen) BLOOD SPECIMEN / Unknown 08/03/2011 12:34 PM CDT 08/03/2011 12:22 PM CDT Fanta Brooke FITNESS STUDIES TEACHER SEND OUTS [facility] [place]NAL ZIP [address] [place] [address] from Last 3 Months or Most Recently Relevant to Health Maintenance Care Teams Field Service Representative Relationship Specialty Start Date End Date Fanta Sarmiento MD [address] [place] [address] PCP - General 12/19/07
[2024-01-27 12:15] LABS: Strep B DNA Probe POSITIVE (Negative)
[2024-01-27 12:34] LABS: Strep B Susceptibility Needed? No
== END 2024-01-26 09:15 | disposition home or self-care (01) ==
PROVIDERS: Visit Provider Midwife
DX: O09.293 Supervision of pregnancy with other poor reproductive or obstetric history, third trimester (principal); Z3A.36 36 weeks gestation of pregnancy
CPT/HCPCS: 87081; 87653

== ENCOUNTER 2024-02-20 03:49 | Inpatient (IN) | payer OTHER, SELFPAY ==
[2024-02-20] VITALS (15 sets, daily range): BP systolic 110–139; BP diastolic 66–88; PULSE 64–88; RESP 16–18; TEMP 36.6–37; O2SAT 97; BMI 37.3
--- OUTSIDE RECORDS SUMMARY | 2024-02-20 03:36 | XMS_ITS | Clinical Summary ---
Author Organization [employer] [facility] Address [place] [address] Care Team Providers Care Regional Owner Operator Truck Driver Name Role Phone Fanta Sarmiento MD Primary Care Provider [phone] Allergies Active Allergy Reactions Criticality Noted Date Comments Neomycin-Polymyxin B-Dexameth Edema,Erythema Medications No known medications Active Problems Problem Noted Date Diagnosed Date Family planning 04/09/2015 Myopia 08/24/2012 Resolved Problems Problem Noted Date Diagnosed Date Resolved Date Supervision of normal first 07/23/2011 03/27/2012 Overview (02/21/2012): Boy by US GBS neg Major depression, [...] Comments Blood Pressure 102/68 06/09/2020 3:27 PM FILTERATION OPERATOR Pulse 72 06/09/2020 3:27 PM FILTERATION OPERATOR Temperature 36.1 ??C (97 ??F) 04/05/2018 11:33 AM FILTERATION OPERATOR Respiratory Rate 12 08/01/2015 9:31 AM FILTERATION OPERATOR Oxygen Saturation 100% 04/05/2018 11:33 AM FILTERATION OPERATOR Inhaled Oxygen Concentration - - Weight 78.1 kg (172 lb 3.2 oz) 06/09/2020 3:27 P M FILTERATION OPERATOR Height 170.2 cm (5' 7) 06/09/2020 3:27 PM FILTERATION OPERATOR Body Mass Index 26.97 06/09/2020 3:27 PM FILTERATION OPERATOR Plan of Treatment Health Maintenance Due Date [...] Procedure Name Priority Date/Time Associated Diagnosis Comments TRANSFORMER COIL WINDER THIN PREP PAP SCREEN IMAGED Routine 03/02/2022 12:20 PM CDT ANTI HIV 1/2 Routine 08/03/2011 12:34 PM CDT Supervision of normal first from Last 3 Months or Most Recently Relevant to Health Maintenance Results * TRANSFORMER COIL WINDER THIN PREP PAP SCREEN IMAGED (03/02/2022 12:20 PM CDT) Case Report Gynecologic Cytology Report ? Case: [id number] ? Authorizing Provider: ??Bhumi Lorenzo CNM ? Collected: ? 03/02/2022 1220 ? Ordering Location: ? [facility] ?Received: ?03/04/2022 0912 ? First Screen: ?Matthew, Medina ? Rescreen: ?Sophie Joy ? Specimen: ?TRANSFORMER COIL WINDER ThinPrep Vial Screening, Cervical ? 03/31/2022 3:48 PM FILTERATION OPERATOR [facility]-C ENTRAL LABORATORY INTERPRETATION/ RESULT NEGATIVE FOR INTRAEPITHELIAL LESION OR MALIGNANCY (NIL) (none) 03/31/2022 3:48 PM FILTERATION OPERATOR [facility] IMEN ADEQUACY Satisfactory for evaluation Endocervical component present Scant cellularity 03/31/2022 3:48 PM FILTERATION OPERATOR [facility] HPV REQUEST HPV and PAP 03/31/2022 3:48 PM FILTERATION OPERATOR [facility] Last Pap Date 03/31/2022 3:48 PM FILTERATION OPERATOR [facility] Comment:SEVERAL YEARS AGO Last Pap Result NIL 3:48 PM FILTERATION OPERATOR [facility] Abnormal Pap or [place] Bx in last 5 years No 03/31/2022 3:48 PM FILTERATION OPERATOR [facility] Menstrual Status 03/31/2022 3:48 PM FILTERATION OPERATOR [facility] [place] Bx Done Today No 03/31/2022 3:48 PM FILTERATION OPERATOR [facility] Additional Information 03/31/2022 3:48 PM FILTERATION OPERATOR [facility] Comment: Interpreted at [facility] Laboratory - [address], [place] [address] Automated Review Successful 03/31/2022 3:48 PM FILTERATION OPERATOR [facility] Comment:Specimen processed s uccessfully by automated assistant manager pt device, ThinPrep Imaging System, [employer] ANCILLARY TESTING TRANSFORMER COIL WINDER HPV Ordered, Please see separate report 03/31/2022 3:48 PM FILTERATION OPERATOR [facility] Note The pap test is [...] pre-malignant and malignant lesions. 03/31/2022 3:48 PM FILTERATION OPERATOR [facility] Other (Cervical) 03/02/2022 12:20 PM CDT 03/04/2022 9:12 AM CDT Bhumi Lorenzo CNM PATHOLOGY/CYTOLOGY [facility] LAB[facility] [address] [place] [address], * ANTI HIV 1/2 (08/03/2011 12:34 PM CDT) ANTI HIV 1/2 Non-reacti ve [facility] Blood specimen (specimen) BLOOD SPECIMEN / Unknown 08/03/2011 12:34 PM CDT 08/03/2011 12:22 PM CDT Fanta Brooke RIVER TESTER SEND OUTS [facility] [place]NAL ZIP [id number] [place] [address] from Last 3 Months or Most Recently Relevant to Health Maintenance Care Teams Regional Owner Operator Truck Driver Relationship Specialty Start Date End Date Fanta Sarmiento MD [address] [place] [address] PCP - General 12/19/07
[2024-02-20] MEDS: AMPICILLIN 2 GM in 0.9 % SODIUM CHLORIDE Mini-bag 100 ML IVPB (03:59)
[2024-02-20 04:07] LABS: Basophils Percent Auto 0.3 % (0.0-3.0); Eosinophils Percent Auto 0.5 % (0.0-7.0); Hematocrit 40.5 % (33.0-51.0); Hemoglobin* 13.8 gm/dL (12.0-16.0); Immature Granulocytes Pct Auto 0.6 %; Lymphocytes Percent Auto 18.8 % (20-44); Mean Corpuscular HGB Conc 34 gm/dL (32-36); Mean Corpuscular Hemoglobin 31 pg (26-34); Mean Corpuscular Volume 91 fL (80-100); Monocytes Percent Auto 9.1 % (0.0-11.0); Neutrophils Percent Auto 70.7 % (42.0-72.0); Platelet Count* 134 K/uL (140-440); RDW Coefficient of Variation % 12.4 % (11.5-15.5); Red Blood Count 4.47 m/uL (4.00-5.20); White Blood Count* 11.42 K/uL (4.50-11.00)
[2024-02-20 04:08] LABS: Slide Review Reflex No
--- NOTE | 2024-02-20 04:08 | W.PM.LDBA ---
Subjective History of Present Illness Date Seen: 02/20/24 Narrative: Shaye is a 33 yo at 40 2/7 weeks gestation being admitted to Labor and Delivery for spontaneous onset of labor. She reports she began having contractions at 11 am this morning. She coped well with labor at home until her contractions were every 5 minutes, regular, and intensifying. She denies any leaking of fluid or bleeding. She is supported in labor by her , Caleb, and Clare Carlos. Her full history and physical was dictated by JANUARY Jose on 02/01/2024. Please see this for details. Specific Issues/Plans Caleb H&P completed by JANUARY Jose on 02/01/2024 1. Molar on 02/22/23 w/ last 2 months between pregnancies send placenta at delivery Hcg at 6 weeks 2. 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 left fibroid 0.9x0.7x0.8cm 4. Thrombocytopenia Borderline low platelets at 28 weeks: 142 Repeat CBC with 34 weeks: 131 Consider CBC on admission 5. GBS +, recommend antibiotics in labor Ok with ampicillin COVID: one dose from initial series, not boosted, declined booster. Flu: declined TDAP: declined RSV: declined OB - Problem Based A/P Additional Plan (1) Pain during labor: Status: Acute (2) History of gestational trophoblastic disease: Status: Acute (3) Group B Streptococcus carrier, antepartum: Status: Acute (4) 40 weeks gestation of : Status: Acute (5) Spontaneous onset of labor: Status: Acute Plan ASSESSMENT:? 33 yo at 40.2 weeks gestation? complicated by:?Hx of molar , fibroid, thrombocytopenia Labor type: Spontaneous, Active labor? Category 1 FHR pattern.?? Labor complicated by: GBS? GBS positive? ? PLAN:? 1. Routine intrapartum cares as ordered. Continue with expectant management? 2. Monitoring per policy, intermittent? 3. Planning unmedicated . Desires water . Consent signed. Hep C negative. Candidate for analgesia of choice.?? 4. Patient encouraged to reposition and ambulate to promote physiologic labor and .? 5. GBS prophylaxis initiated for GBS positive status. Will treat with antibiotics per protocol. 6. Hx of molar , placenta to be sent post-delivery. 7. Anticipate ? Delivery/Labor/Induction Plan Plan: expectant management OB Exam Physical Exam Vital signs: Temp Pulse Resp BP 98.6 F 81 18 139/67 02/20/24 04:05 02/20/24 04:01 02/20/24 04:05 02/20/24 04:01 Narrative: Vitals Reviewed Constitutional:? Alert and oriented x3 HEENT:? Normocephalic, atraumatic Neck:? Supple Lungs:? Clear to auscultation bilaterally Heart:? Regular rate and rhythm, no murmur, rub or gallop Abdomen:? Soft, nontender, and gravid. Vertex by Donovan's, confirmed with cervical exam. Extremities:? No edema or erythema Cervix: 8 cm/80%/0 station/vertex NST: 120 bpm/moderate variability/15x15 accelerations/no decelerations/contractions every 2 minutes Detailed Labor and Delivery Exam Patient Gravid: Yes
[2024-02-20] MEDS: IBUPROFEN 600 MG TABLET PO (07:11)
--- NOTE | 2024-02-20 07:35 | W.PM.OBVAGDE ---
OB Procedure Vag Delivery Mother Details Mother Details: The patient is a 33 year-old, 5, now Para 3023, admitted on 02/20/24 at 40.2 weeks gestation. : 5 Para: 3 Weeks Gestation: 40.2 Admission Date: 02/20/24 Additional Details Amniotic Membrane Status: SROM Amniotic Membrane Rupture Date: 02/20/24 Amniotic Membrane Rupture Time: 05:12 Amniotic Membrane Fluid Description: Clear Analgesia/Anesthesia Type: None Waterbirth: No Pitcoin: No (Declined unless necessary) Intrapartal Events: None Labor Onset: 23:30 Complete: 05:17 Pushin:45 Heart: heart tones during second stage were Delivery Details Delivery Date: 02/20/24 Delivery Time: 06:00 Infant Gender: Male Infant Viability: Alive; Heart Rate Present Position at Delivery: OA Delivery Details: Patient was admitted for spontaneous onset of labor and progressed normally. She requested AROM but we reviewed that she is GBS + but that had only been 1 hour since antibiotics. We discussed waiting until 4 hours vs AROM with SVE of 8/90/0 at that time. Patient reports she understands risk and desires AROM, performed with clear fluid at 0517. Patient was assumed complete with pushing at 0545. of a viable male at 0600 in hands and knees on the mat next to the bed. Vertex delivered OA. No nuchal cord or shoulder. Body delivered easily and without incident. passed between mothers legs with a vigorous cry. Mother was assisted to lying on her side before being assisted back to the bed with baby in her arms. Cord was clamped and cut at > 5 minutes. APGARS were 8 at one minute and 9 at five minutes respectively. Mouth was bulb suctioned. Intact placenta with a 3 vessel cord delivered spontaneously at 0618. Fundus firm. Intact perineum. QBL 150 cc. Mother and baby stable; mother plans to breastfeed. Infant weight pending. 1 Minute Interval Total Score: 8 5 Minute Interval Total Score: 9 Additional Details Shoulder Dystocia: No Placenta Delivery Time: 06:18 Placental Delivery Description: Spontaneous Procedure Done: Global Blood Loss: 150 Laceration: None Blood Loss Measurement Type: QBL Bakri Used: No Sponge/Need Count Correct: No Cord Vessel Description: 3 Vessels Event Summary Status: Mother and were stable after delivery. Disposition: floor
[2024-02-20] MEDS: ACETAMINOPHEN 500 MG TABLET 1000 MG PO ×2 (10:25→16:52)
[2024-02-20] MEDS: DOCUSATE SODIUM 100 MG CAPSULE PO (11:02)
[2024-02-20] MEDS: metroNIDAZOLE 500 MG TABLET PO ×2 (11:02→21:24)
[2024-02-21 01:32] VITALS: BP 128/86; RESP 16
[2024-02-21 04:35] VITALS: BP 103/86; PULSE 68; RESP 18; TEMP 36.6
--- NOTE | 2024-02-21 10:05 | PM.OBDSVD1 ---
DS: Providers Provider Date Seen: 02/21/24 Date of admission: 02/20/24 03:49 Primary care physician: Not a Local Provider Admitting Clinician: Jaja Dominguez CNM Attending Physician on discharge: Jaja Dominguez CNM DS: Diagnosis Discharge Diagnosis (1) care and examination immediately after delivery: Status: Acute (2) Lactating mother: Status: Acute (3) History of gestational trophoblastic disease: Status: Acute Exam Narrative: Exam Narrative: GENERAL APPEARANCE:? normal affect, alert, no distress MOOD:? appropriate CHEST:? clear to auscultation HEART:? regular rate and rhythm ABDOMEN:? soft, non-tender the uterine fundus is at Umbilicus, Midline and is appropriate for the stage of recovery. PERINEUM:? mild edema of the perineum. EXTREMITIES:? normal and no edema Const: Vital Signs, click to edit/add: Vital Signs - 24 hr 02/20/24 10:15 02/20/24 13:20 02/20/24 16:48 Temperature 98.1 F 98.2 F 98.4 F Pulse Rate [Blood Pressure Cuff] 80 64 Respiratory Rate 16 16 16 Blood Pressure [Le ft Arm] 124/72 123/76 116/79 Pulse Oximetry 97 Oxygen Delivery Me thod Room Air Room Air Room Air 02/20/24 21:25 02/21/24 01:32 02/21/24 04:35 Temperature 98.6 F 97.9 F Pulse Rate [Blood Pressure Cuff] 73 68 Respiratory Rate 16 16 18 Blood Pressure [Le ft Arm] 110/73 128/86 103/86 Pulse Oximetry Oxygen Delivery Me thod Room Air Room Air OB - DS: Summary Hospital Course Hospital Course: Shaye is a 33 y.o. G 5 P 3 who was admitted to L & D for spontaneous onset of labor. ?She had a NVD that was uncomplicated. The patient feels well. ?The pain is well controlled with current medications. ?She has no new complaints. ?She is breast feeding and reports things are going well. the patient has done well.? Vitals have been stable.? She has remained afebrile.? Has a good appetite, is tolerating a general diet. ?She is voiding without difficulty.? She is passing gas and has not had a bowel movement.? She is ambulating and denies any dizziness.? Has small amount of rubra lochia. Problems: none plan: Discharge home with baby. Follow up in 2 weeks and 6 weeks. , may see if needed Hgb 11.0. Peripartum Data Infant delivery method: Vaginal Laceration description: None complications: none [place] Gender: Male Infant Discharge Plan: Home Status at Discharge Functional status at discharge: independent ambulation Overall status at discharge: patient is progressing back to baseline Time Spent with Patient Time attestation: Total time spent providing and/or coordinating discharge services: Time spent: Less than 30 minutes Discharge Plan Discharge Disposition: Home, Self-Care Date of Admission: 02/20/24 03:49 Attending Provider on Discharge: Jaja Dominguez Primary Care Provider: Provider,Not a Local Condition: Stable Anticipated Discharge Date/Time: 02/21/24 15:01 Discharge Medications: New docusate sodium 100 mg Capsule 100 mg PO DAILY Qty: 0 0RF ibuprofen 600 mg Tablet 600 mg PO Q6H PRNQty: 0 0RF acetaminophen 500 mg Tablet 1,000 mg PO Q6H PRNQty: 0 0RF Continued Classic 28 mg iron- 800 mcg tablet 1 tab PO DAILY Discontinued metronidazole 500 mg tablet 500 mg PO BID 7 Days Qty: 14 0RF Discharge Orders: Discharge Order (Routine); Ordered 02/21/24 Ordered By: Chelsea Pugh Patient Education: OB Over the Counter Medication Information, OB Vaginal/Breast Feeding Additional Instructions: Discharge instructions were reviewed with the patient including signs and symptoms of infection and home going medications Nothing vaginally for 6 weeks: no tampons or intercourse Do not drive while taking narcotic pain medication(s) Off Work or School for 6 weeks 2-week visit: discuss infant feeding concerns, review control options and screen for anxiety/depression. 6-week visit for an annual exam. consultation services are available to all mothers and babies for the first year after delivery.? To make an appointment, please call [phone]. Activity Level: Activity as Tolerated Discharge Diet: Regular Follow Up Appointments: [facility] [Provider Group] Forms: NOW! [employer] Info Instructions
[2024-02-21] MEDS: DOCUSATE SODIUM 100 MG CAPSULE PO (10:21)
[2024-02-21 14:36] VITALS: BP 123/78; PULSE 65; RESP 16; TEMP 36.4; O2SAT 96
[2024-02-21 23:01] LABS: Rapid Plasma Reagin (RPR) Non Reactive (Non Reactive)
== END 2024-02-21 18:36 | disposition home or self-care (01) | DRG 806 ==
LOC: OB OUT 03:49 → OB 03:49
PROVIDERS: Admitting Provider Advanced Practice Midwife; Visit Provider Advanced Practice Midwife
DX: O34.13 Maternal care for benign tumor of corpus uteri, third trimester (principal); O99.12 Other diseases of the blood and blood-forming organs and certain disorders involving the immune mechanism complicating childbirth; Z37.0 Single live birth; O99.824 Streptococcus B carrier state complicating childbirth; D69.6 Thrombocytopenia, unspecified; D25.9 Leiomyoma of uterus, unspecified; Z87.59 Personal history of other complications of pregnancy, childbirth and the puerperium; Z3A.40 40 weeks gestation of pregnancy
CPT/HCPCS: 36415; 85018; 85025; 86592; 86850; 86900; 86901; 88307; G0463; A9270; J0290

== ENCOUNTER 2024-03-04 13:46 | Emergency (ER) | payer OTHER, SELFPAY ==
[2024-03-04 13:57] VITALS: BP 133/98; PULSE 65; RESP 18; TEMP 36.3; O2SAT 98; BMI 32.9
--- NOTE | 2024-03-04 14:07 | ED_ITS ---
HPI - General Time Seen by Provider: 14:07 Date Seen: 03/04/24 Chief complaint: Vaginal Bleeding Stated complaint: 2 weeks , golfball sized clots Time Seen by Provider: 03/04/24 13:51 Source: patient, RN notes reviewed and old records reviewed Mode of arrival: ambulatory Limitations: no limitations History of Present Illness HPI Narrative: This 33-year-old female is about 2 weeks coming into the ER of her own accord with concern of increasing vaginal bleeding and increasing blood clots. She is not exhibiting any shortness of breath, no palpitations, is not feeling lightheaded from the blood loss. She notes it is most when she goes to the bathroom, the toilet is red and will have a lot of clots to point she can not see the bottom of the toilet. The bleeding is increasing. This is reportedly her 2nd . She notes she is passing about golf ball size clots. No dizziness, no lightheadedness, no chest pain, shortness of breath. Patient is pumping breast milk to bottle feed. She feels like her milk really has not come in. She is not having any significant abdominal pain or cramping. She notes no fevers. Right after delivery, she had 1 night where she woke up in a cold sweat but nothing since then. Review of her chart reveals that she came into Labor and delivery on February 19 in spontaneous labor. She had a normal vaginal delivery that was uncomplicated. Patient delivered at 40 and 2 7th weeks. Her chart notes that she had a molar in between these pregnancies, was on 02/22/2023. She was group B strep positive. Patient is a positive for blood type, negative on antibody screen. The placental from this delivery was sent and the pathology showing no concerning change. Related Data Home Medications ?Medication ?Instructions ?Recorded ?Confirmed vits no.[id number]-ferrous fum 1 tab PO DAILY 07/07/23 02/20/24 28 mg iron-folic acid 800 mcg tablet (Classic ) Previous Rx's ?Medication ?Instructions ?Recorded acetaminophen 500 mg tablet 1,000 mg (2 x 500 mg) PO Q6H PRN 02/21/24 #0 tabs docusate sodium 100 mg capsule 100 mg PO DAILY #0 caps 02/21/24 ibuprofen 600 mg tablet 600 mg PO Q6H PRN #0 tabs 02/21/24 Allergies Allergy/AdvReac Type Severity Reaction Status Date / Time moxifloxacin Allergy Mild Swelling Verified 02/20/24 03:58 of the Eye Review of Systems Status of ROS: Reports: 6 or more systems reviewed and unremarkable except as noted in History and below [facility] Medical History ?Z34.90 - Encounter for supervision of normal , unspecified, unspecified trimester (ICD-10) Gestational trophoblastic disease ?O01.9 - Hydatidiform mole, unspecified (ICD-10) Missed with demise before 20 completed weeks of gestation ?O02.1 - Missed (ICD-10) (normal spontaneous vaginal delivery) ?O80 - Encounter for full-term uncomplicated delivery (ICD-10) Surgical History [place] teeth extracted ?K08.409 - Partial loss of teeth, unspecified cause, unspecified class (ICD- 10) Family History Father No problems noted. Mother History of recurrent miscarriages Maternal Grandfather No problems noted. Maternal Grandmother No problems noted. Paternal Grandfather No problems noted. Paternal Grandmother No problems noted. Son Eczema Brother ADHD Social History Narrative: She lives in [place]. She doesn't smoke, drink alcohol or use recreational drugs ? Work:? [employer], works from home Partner: Caleb Rutledge, Owns [employer]?(his first baby) Lives with:? Oliverio Ellis (age 10)? Pets: 3 dogs Abuse:? Denies past/present ? Ok with a blood transfusion:? yes ? Culture or presybeterian beliefs:? denies? RISK FACTORS ? Seat Belt Use: Routinely ? Alcohol/day:? Denies while ? Chicken Pox:? Yes as a child MRSA:? Denies ? What is your current living situation?: I presently have a place to live Problems where you live: no known problems In the past 12 months, utilities in danger of being shut off: no In past 12 months, lack of transportation kept you from medical appts, meetings, work, or getting things needed for daily living: no In the past 12 mos, have been you worried that your food would run out before you had money to buy more?: never true In the past 12 mos, the food you bought just didn't last and you didn't have money to buy more?: never true Are you following a diet prescribed by a doctor: No Are you following a special diet: No Do you want help finding or keeping work or a job: I do not need or want help Known occupational exposures/hazards: No Highest level of school completed/degree received: Bachelor's degree Do you want help with school or training: No Physical activity type: walking and weight lifting Physical activity type details: Crossfit How many days of moderate to strenuous exercise, like a brisk walk, did you do in the last 7 days: 7 Smoking Status: Never smoker Do you use any of these nicotine containing products: None Second hand tobacco smoke exposure: No How often do you have a drink containing alcohol: never How often do you have six or more drinks on one occasion: Never AUDIT-C Alcohol total score: 0 Non-prescribed substance use: denies use Caffeine: Yes (1/2 energy drink daily) How often does anyone, including family, friends and others, physically hurt you : never How often does anyone, including family, friends and others, insult or talk down to you: never How often does anyone, including family, friends and others, threaten you with harm: never How often does anyone, including family, friends and others, scream or curse at you: never Little interest or pleasure in doing things: not at all Feeling down, depressed, or hopeless: not at all Exam Const: Vital Signs, click to edit/add: Vital Signs - 24 hr 03/04/24 13:57 03/04/24 16:23 Temperature 97.4 F L Pulse Rate 62 Pulse Rate [Right Pulse Oximeter] 65 Respiratory Rate 18 Blood Pressure [Ri ght Upper Arm] 133/98 H Pulse Oximetry 98 100 Oxygen Delivery Me thod Room Air Rolf is a very pleasant 33-year-old female ambulatory into the ED of her own accord. She is alert, interactive, no apparent stress. Sclera clear, face atraumatic, able speak in complete sentences. Lungs are clear, good air entry, no wheezing or crackles. CV regular rate and rhythm, no murmur, normal S1-S2, no S3-S4. Abdomen is soft, nontender, nondistended, uterus below umbilicus, no suprapubic tenderness. Documenting provider has reviewed patient's vital signs: yes Course Course ED Course: We will obtain a CBC on this patient, ensure her hemoglobin is not significantly low. We will be proceeding with pelvic ultrasound to rule out retained products of conception. Reevaluation(s) Time of Reevaluation #1: 16:06 Reevaluation #1: Patient does have retained products of conception. Will be talking to environmental programs specialist. She is currently hemodynamically stable as far as a bleeding standpoint. Time of Reevaluation #2: 16:30 Reevaluation #2: Did review with patient that her repeat blood pressure is elevated at 1 40/99. We reviewed preeclampsia that can happen up to 6 weeks . She has had a mild headache, she states she may have not noticed a headache prior because she had been doing scheduled Tylenol and ibuprofen. She has not had any for a while today. Reviewed with her the environmental programs specialist did want me to give her dose of Tylenol to see for headache went away. We also need a CMP to look at her kidney and liver functions. We did discuss preeclampsia, she does relate to me that she has been having a little right upper quadrant abdominal pain, maybe noticed it within this last week but really only at night when she is trying to lay down to sleep. No edema noted. Time of Reevaluation #3: 16:50 Reevaluation #3: Blood pressure is 132/87. She is currently pumping. She states her headache is improving, is better than it was. Her comprehensive metabolic panel is normal. Will follow blood pressures here for a bit as well as her symptoms and update OB. Consultations Consultation #1: Paged Dr. Le whom called back expeditiously. We reviewed the case. She did point out blood pressure, will have staff recheck this. Patient is truly hemodynamically stable as far as a bleeding standpoint, procedure certainly could happen this week from my clinical evaluation. Will have blood pressure rechecked and make sure this is normal. Did let her know that the blood pressure was 140/99. Will treat headache with 1000 mg Tylenol and see if it does help. Also get a CMP, CBC is showing no concerning changes, no thrombocytopenia. Time: 16:03 Consultation #2: Updated OB, most recent blood pressures were 132/87, 132/93. They are going to try to get her in tomorrow or Tuesday for recheck blood pressure, plan to deal with retained products of conception. In the meantime signs and symptoms for return reviewed. Time: 17:11 Vital Signs Vital signs: Initial Vital Signs Temperature 97.4 F L 03/04/24 13:57 Temperature Source Temporal Artery Scan 03/04/24 13:57 Pulse Rate 65 03/04/24 13:57 Respiratory Rate 18 03/04/24 13:57 Blood Pressure 133/98 H 03/04/24 13:57 Blood Pressure Mean 109 H 03/04/24 13:57 Blood Pressure Position Sitting 03/04/24 13:57 Pulse Oximetry 98 03/04/24 13:57 Oxygen Delivery Method Room Air 03/04/24 13:57 Vital Signs Temperature 97.4 F L 03/04/24 13:57 Pulse Rate 65 03/04/24 13:57 Respiratory Rate 18 03/04/24 13:57 Blood Pressure 133/98 H 03/04/24 13:57 Pulse Oximetry 98 03/04/24 13:57 Oxygen Delivery Method Room Air 03/04/24 13:57 Temperature 97.4 F L 03/04/24 13:57 Pulse Rate 62 03/04/24 16:23 Respiratory Rate 18 03/04/24 13:57 Blood Pressure 133/98 H 03/04/24 13:57 Pulse Oximetry 100 03/04/24 16:23 Oxygen Delivery Method Room Air 03/04/24 13:57 Medications Administered Medications: Generic Name Dose Route Start Last Admin Trade Name Freq PRN Reason Stop Dose Admin Acetaminophen 1,000 mg 03/04/24 16:22 03/04/24 17:02 Acetaminophen 500 Mg Tablet PO 03/04/24 16:23 1,000 mg ONCE ONE Administration MDM - OB/Uterine Contractions Lab Data Attestation: I reviewed the patient's lab results. Lab results narrative: Patient's admission hemoglobin on February 19 was 13.8, discharge at 11. She is back up to 14 and normal at this time. Labs: Lab Results 03/04/24 Range/Units 14:30 WBC 7.66 (4.50-11.00) K/uL RBC 4.62 (4.00-5.20) m/uL Hgb 14.0 (12.0-16.0) gm/dL Hct 41.8 (33.0-51.0) % MCV 91 (80-100) fL MCH 30 (26-34) pg MCHC 34 (32-36) gm/dL RDW Coeff of Roseanne 11.8 (11.5-15.5) % Plt Count 211 (140-440) K/uL Neut % (Auto) 62.8 (42.0-72.0) % Lymph % (Auto) 26.8 (20-44) % [place] % (Auto) 7.0 (0.0-11.0) % Eos % (Auto) 2.1 (0.0-7.0) % Baso % (Auto) 0.3 (0.0-3.0) % Neut # (Auto) 4.81 (1.7-7.0) K/uL Lymph # (Auto) 2.05 (0.90-2.90) K/uL [place] # (Auto) 0.50 (0.00-0.90) K/UL Eos # (Auto) 0.16 (0.00-0.50) K/uL Baso # (Auto) 0.02 (0.00-0.30) K/uL Abs Immat Gran (auto) 0.08 (0.00-0.30) K/uL Imm/Tot Granulo (auto) 1.0 % Sodium 138 (135-149) mmol/L Potassium 3.8 (3.6-5.1) mmol/L Chloride 103 (96-114) mmol/L Carbon Dioxide 26 (20-32) mmol/L Anion Gap 9 (7-15) mEq/L BUN 19 (5-24) mg/dL Creatinine 0.8 (0.5-1.5) mg/dL Estimated Creat Clear 99.08 Estimated GFR 101 ml/min Glucose 96 (60-115) mg/dL Calcium 9.4 (8.4-10.6) mg/dL Total Bilirubin 0.4 (0.1-1.5) mg/dL AST 25 (12-35) U/L ALT 23 (4-35) U/L Alkaline Phosphatase 78 (40-150) U/L Total Protein 7.7 (6.0-8.3) g/dL Albumin 4.3 (3.3-5.0) g/dL Imaging Data US pelvis: Attestation: I have reviewed the pertinent imaging results. Radiologist's impression: Patient: ARLETH RUTLEDGE Facility:?[facility] Patient ID:?[id number] Site Patient ID:?[id number]. Site :?[id number] Study:?US-Pelvis -03/04/2024 3:10:17 PM Ordering Physician:?Tone Hdez Final Report: INDICATION: Increased bleeding . TECHNIQUE: Transabdominal pelvic ultrasound COMPARISON: No prior. FINDINGS: Uterus measures 11.7 x 6.0 x 8.6 centimeters in size. Small amount of fluid or hemorrhage is present within the endometrial canal. There is a more focal area of heterogeneous material within the endometrial region that measures approximately 1.5 x 1.8 x 0.8 centimeters in size and which may reflect retained products of conception. Blood clot is a secondary consideration. There is some prominent adjacent vascularity. Right ovary not seen. No right adnexal mass. Left ovary measures 2.3 x 1.3 x 2.8 centimeters in size and appears normal. No free fluid. IMPRESSION: 1. 1.5 x 1.8 x 0.8 centimeter focal area of heterogeneous material within the endometrial region reason the possibility of retained products of conception. Blood clot would reflect a secondary consideration. Otherwise, there is a small amount of fluid or hemorrhage within the endometrial canal. 2. No adnexal mass or pelvic free fluid. Dictated by Leonel Benjamin MD @ 03/04/2024 3:58:42 PM Dictated by: Leonel Benjamin MD @ 03/04/2024 15:58:47 (Electronic Signature) Discharge Plan Discharge Clinical Impression: Retained products of conception, Elevated blood pressure reading Patient Disposition: Home, Self-Care Condition: Stable Instructions: Preeclampsia During (ED), Bleeding (ED) Additional Instructions: Obstetrics will be trying to work on a follow-up appointment for you tomorrow or Tuesday to recheck blood pressure and make a plan for your retained products of conception. It is fine to take Tylenol and ibuprofen as needed for any cramping mild headache. If you have increasing headache, persistent right upper quadrant or worsening right upper quadrant abdominal pain, start to develop any fluid retention/edema, have increasing vaginal bleeding that is greater than a maxi pad per hour over 2 hours or feeling symptomatic from bleeding, need to return to the ER for emergent re-evaluation. Activity Level: Activity as Tolerated Prescriptions: No Action Classic 28 mg iron- 800 mcg tablet 1 tab PO DAILY acetaminophen 500 mg Tablet 1,000 mg PO Q6H PRNQty: 0 0RF docusate sodium 100 mg Capsule 100 mg PO DAILY Qty: 0 0RF ibuprofen 600 mg Tablet 600 mg PO Q6H PRNQty: 0 0RF Follow Up/Referrals: Provider,Not a Local [Non-Staff] - Stand Alone Forms: [employer] Info Instructions
--- NOTE | 2024-03-04 14:13 | CRLHL7_ITS ---
For Patients: As a result of the Century Cures Act, medical imaging exams and procedure reports are released immediately into your electronic medical record. You may view this report before your referring provider. If you have questions, please contact your health care provider. INDICATION: Increased bleeding . TECHNIQUE: Transabdominal pelvic ultrasound COMPARISON: No prior. FINDINGS: Uterus measures 11.7 x 6.0 x 8.6 centimeters in size. Small amount of fluid or hemorrhage is present within the endometrial canal. There is a more focal area of heterogeneous material within the endometrial region that measures approximately 1.5 x 1.8 x 0.8 centimeters in size and which may reflect retained products of conception. Blood clot is a secondary consideration. There is some prominent adjacent vascularity. Right ovary not seen. No right adnexal mass. Left ovary measures 2.3 x 1.3 x 2.8 centimeters in size and appears normal. No free fluid. IMPRESSION: 1. 1.5 x 1.8 x 0.8 centimeter focal area of heterogeneous material within the endometrial region reason the possibility of retained products of conception. Blood clot would reflect a secondary consideration. Otherwise, there is a small amount of fluid or hemorrhage within the endometrial canal. 2. No adnexal mass or pelvic free fluid. Dictated by Leonel Benjamin MD @ 03/04/2024 3:58:42 PM Dictated by: Leonel Benjamin MD @ 03/04/2024 15:58:47 (Electronically Signed)
--- OUTSIDE RECORDS SUMMARY | 2024-03-04 14:27 | XMS_ITS | Clinical Summary ---
Author Organization [email or web address] [facility] Address [place] [address] Care Team Providers Care Traffic Expert Name Role Phone Fanta Sarmiento MD Primary [...] neg Major depression, single episode 03/06/2009 02/21/2012 Encounters Date Type Department Care Team Description 02/20/2024 Lab Requisition [facility] [phone] Jaja Dominguez CNM from Last 3 Months Immunizations Name Administration Dates Next Due DTP [...] kg (7 lb 6 oz) M Vag Nakia owusu Oliverio Comments:System Genera axel. Please review and update details. 015 SAB Comments:System Genera axel. Please review and update details. Last Filed Vital Signs Vital Sign Reading Time Taken Comments Blood Pressure 102/68 06/09/2020 3:27 PM CONFERENCE INTERPRETER Pulse 72 06/09/2020 3:27 PM CONFERENCE INTERPRETER Temperature 36.1 ??C (97 ??F) 04/05/2018 11:33 AM CONFERENCE INTERPRETER Respiratory Rate 12 08/01/2015 9:31 AM CONFERENCE INTERPRETER Oxygen Saturation 100% 04/05/2018 11:33 AM CONFERENCE INTERPRETER Inhaled Oxygen Concentration - - Weight 78.1 kg (172 lb 3.2 oz) 06/09/2020 3:27 P M CONFERENCE INTERPRETER Height 170.2 cm (5' 7) 06/09/2020 3:27 PM CONFERENCE INTERPRETER Body Mass Index 26.97 06/09/2020 3:27 PM CONFERENCE INTERPRETER Plan of Treatment Health Maintenance Due Date [...] Procedure Name Priority Date/Time Associated Diagnosis Comments LAB TRACKING EVENT Routine 02/20/2024 6: 00 AM CDT PATH TISSUE EXAM PLACENTA Routine 02/20/2024 6:00 AM CDT MASK DESIGN ENGINEER THIN PREP PAP SCREEN IMAGED Routine 03/02/2022 12:20 PM CDT ANTI HIV 1/2 Routine 08/03/2011 12:34 PM CDT Supervision of normal first from Last 3 Months or Most Recently Relevant to Health Maintenance Results * LAB TRACKING EVENT (02/20/2024 6:00 AM CDT) Other (Other) Client Collect / Unknown 02/20/2024 6:00 AM CDT 02/20/2024 12:47 PM CDT Jaja Dominguez CNM LAB BILL ONLY [facility] LABORATORY [address] [place] [address], * PATH TISSUE EXAM PLACENTA (02/20/2024 6:00 AM CDT) Case Report Pathology Report ?Case: [id number] ? Authorizing Provider: ??Jaja Dominguez CNM ?Collected: ? 02/20/2024 0600 ? Ordering Location: ? [facility] ?Received: ?02/20/2024 1400 ? Pathologist: ? Codi Kinney MD ? Specimen: ?Placenta ? 02/22/2024 2:04 PM CDT [facility] LABORAT[facility]-C ENTRAL LABORATORY Final Diagnosis A) PLACENTA, VAGINAL DELIVERY: 1. Third trimester gaspar placenta with the following characteristics: ? a. Weight: 522 grams (25-50th percentile for gestational age) ? b. 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 c. Umbilical cord: ?Three vessel cord ?Negative for funisitis ? d. Disc/Villi: ?Chorionic villi consistent with gestational age ?Negative for villitis ?Placental disc without infarcts ?Small intervillous thrombus, involving <5% of the disc ? e. Decidua/basal plate: ?No diagnostic abnormalities identified 02/22/2024 2:04 PM [facility]- ENTRAL LABORATORY Comment Circummarginate placental membrane insertion describes the phenomenon when placental membranes do not arise from the edge of the placental disc. The pathogenesis of this finding is incompletely understood; however, they are favored to arise from a marginal hemorrhage early in gestation. The most common clinical complications associated with this placental finding are bleeding and premature delivery. Intraplacental hematomas (intervillous thrombi) are usually innocuous when small and few in number, as in this case. When numerous, they may be associated with significant -maternal hemorrhage, leading to anemia and its complications. 02/22/2024 2:04 PM CDT [facility] LABORAT[facility]-C ENTRAL LABORATORY Clinical Information Vaginal delivery at 40+2 weeks gestational age. For obstetrical history. . No history of diabetes, hypertension, eclampsia, or smoking. 02/22/2024 2:04 PM CDT [facility]-C ENTRAL LABORATORY Gross Description A) Received fresh labeled with the patient's name and placenta, is a 522 gram, 18.3 x 15.2 x 3.0 cm gaspar placenta. The surface is blue-singh with normal vasculature. The 48.2 cm long, 1.0 cm diameter trivascular umbilical cord is eccentrically inserted 4.7 cm from the nearest edge of the placental plate. ??The umbilical cord averages 2.5 twists per 10 cm. ??The extraplacental membranes are semitranslucent, thin, and inserted 70% marginally and 30% circummarginally. The maternal surface is chase-red with intact cotyledons (100% complete). ??No adherent blood clot is present. ??Sectioning reveals chase-red spongy parenchyma with a single chase-yellow central lesion measuring 0.5 cm in greatest dimension. ??Lesion involves less than 5% of the placenta parenchyma. Small Business Director sections are submitted: 1. ?? membranes and insertion 2. ??Umbilical cord 3. ??Lesion 4. ??Central placenta with umbilical cord insertion site, full-thickness 5-6. ??Central placenta, full-thickness Time and date in formalin: 1453 on 02/20/2024 [facility] 02/20/2024 02/22/2024 2:04 PM CDT [facility] Microscopic Description The final diagnosis is based on microscopic examination of appropriate sections of all specimens. 02/22/2024 2:04 PM CDT [facility] Additional Information Interpreted at [facility] [employer] [facility] Laboratory - [address], [place] [address] 02/22/2024 2:04 PM CDT [facility] Tissue SPECIMEN FROM PLACENTA / Unknown 02/20/2024 6:00 AM CDT 02/20/2024 2:00 PM CDT Jaja Dominguez CNM PATHOLOGY/CYTOLOGY [employer] [facility]-CENTRAL LABORATORY [address] [place] [address], * MASK DESIGN ENGINEER THIN PREP PAP SCREEN IMAGED (03/02/2022 12:20 PM CDT) Case Report Gynecologic Cytology Report ? Case: [id number] ? Authorizing Provider: ??Bhumi Lorenzo CNM ? Collected: ? 03/02/2022 1220 ? Ordering Location: ? [facility] ?Received: ?03/04/2022 0912 ? First Screen: ?Medina Castro ? Rescreen: ?Sophie Joy ? Specimen: ?MASK DESIGN ENGINEER ThinPrep Vial Screening, Cervical ? 03/31/2022 3:48 PM CONFERENCE INTERPRETER [facility] ENTRAL LABORATORY INTERPRETATION/ RESULT NEGATIVE FOR INTRAEPITHELIAL LESION OR MALIGNANCY (NIL) (none) 03/31/2022 3:48 PM CONFERENCE INTERPRETER [facility] LAB[facility] IMEN ADEQUACY Satisfactory for evaluation Endocervical component present Scant cellularity 03/31/2022 3:48 PM CONFERENCE INTERPRETER [facility] ENTRAL LABORATORY HPV REQUEST HPV and PAP 03/31/2022 3:48 PM CONFERENCE INTERPRETER [facility] LABORATORY Last Pap Date 03/31/2022 3:48 PM CONFERENCE INTERPRETER [facility] ENTRAL LABORATORY Comment:SEVERAL YEARS AGO Last Pap Result NIL 3:48 PM CONFERENCE INTERPRETER [facility] ENTRAL LABORATORY Abnormal Pap or [place] Bx in last 5 years No 03/31/2022 3:48 PM CONFERENCE INTERPRETER [facility] ENTRAL LABORATORY Menstrual Status 03/31/2022 3:48 PM CONFERENCE INTERPRETER [facility] LAB[facility] [place] Bx Done Today No 03/31/2022 3:48 PM CONFERENCE INTERPRETER [facility] LABORATORY Additional Information 03/31/2022 3:48 PM CONFERENCE INTERPRETER [facility] ENTRAL LABORATORY Comment: Interpreted at [facility], Central Laboratory - [address] [facility] [address], [place] [address] Automated Review Successful 03/31/2022 3:48 PM CONFERENCE INTERPRETER [facility] ENTRMN LABORATORY Comment:Specimen processed s uccessfully by automated front end loader operator device, ThinPrep Imaging System, [employer] ANCILLARY TESTING MASK DESIGN ENGINEER HPV Ordered, Please see separate report 03/31/2022 3:48 PM CONFERENCE INTERPRETER [facility] Note The pap test is [...] pre-malignant and malignant lesions. 03/31/2022 3:48 PM CONFERENCE INTERPRETER [facility] ENTRAL LABORATORY Other (Cervical) 03/02/2022 12:20 PM CDT 03/04/2022 9:12 AM CDT Bhumi Vaughan Bj CNM PATHOLOGY/CYTOLOGY [facility] LABORATORY-CENTRAL LABORATORY [address] [place] [address], [place] * ANTI HIV 1/2 (08/03/2011 12:34 PM CDT) ANTI HIV 1/2 Non-reacti ve [facility] Blood specimen (specimen) BLOOD SPECIMEN / Unknown 08/03/2011 12:34 PM CDT 08/03/2011 12:22 PM CDT Fanta Brooke SENIOR SUPPORT ENGINEER SEND OUTS [facility] LABORATORY INTERNAL ZIP [id number] [place] [address] from Last 3 Months or Most Recently Relevant to Health Maintenance Care Teams Traffic Expert Relationship Specialty Start Date End Date Fanta Sarmiento MD [address] [place] [address] PCP - General 12/19/07
[2024-03-04 14:36] LABS: Basophils Absolute Auto 0.02 K/uL (0.00-0.30); Basophils Percent Auto 0.3 % (0.0-3.0); Eosinophils Absolute Auto 0.16 K/uL (0.00-0.50); Eosinophils Percent Auto 2.1 % (0.0-7.0); Hematocrit 41.8 % (33.0-51.0); Immature Granulocytes Abs Auto 0.08 K/uL (0.00-0.30); Lymphocytes Absolute Auto 2.05 K/uL (0.90-2.90); Lymphocytes Percent Auto 26.8 % (20-44); Mean Corpuscular HGB Conc 34 gm/dL (32-36); Mean Corpuscular Hemoglobin 30 pg (26-34); Mean Corpuscular Volume 91 fL (80-100); Neutrophils Absolute Auto 4.81 K/uL (1.7-7.0); Neutrophils Percent Auto 62.8 % (42.0-72.0); Platelet Count* 211 K/uL (140-440); RDW Coefficient of Variation % 11.8 % (11.5-15.5); Red Blood Count 4.62 m/uL (4.00-5.20); Slide Review Reflex No; White Blood Count* 7.66 K/uL (4.50-11.00)
[2024-03-04 16:23] VITALS: PULSE 62; O2SAT 100
[2024-03-04 16:35] LABS: Albumin* 4.3 g/dL (3.3-5.0); Chloride* 103 mmol/L (96-114); Potassium* 3.8 mmol/L (3.6-5.1); Sodium* 138 mmol/L (135-149)
[2024-03-04 16:37] LABS: Creatinine* 0.8 mg/dL (0.5-1.5); Est. Creatinine Clearance* 99.08; Estimated Glomerular Filt Rate 101 ml/min
[2024-03-04 16:38] LABS: Alanine Aminotransferase* 23 U/L (4-35); Alkaline Phosphatase* 78 U/L (40-150); Anion Gap 9 mEq/L (7-15); Aspartate Amino Transferase* 25 U/L (12-35); Bilirubin Total* 0.4 mg/dL (0.1-1.5); Blood Urea Nitrogen* 19 mg/dL (5-24); Calcium* 9.4 mg/dL (8.4-10.6); Carbon Dioxide* 26 mmol/L (20-32); Glucose* 96 mg/dL (60-115); Total Protein* 7.7 g/dL (6.0-8.3)
[2024-03-04] MEDS: ACETAMINOPHEN 500 MG TABLET 1000 MG PO (17:02)
== END 2024-03-04 17:20 | disposition home or self-care (01) ==
PROVIDERS: Emergency Provider Family Medicine; PCP Obstetrics & Gynecology
DX: O73.1 Retained portions of placenta and membranes, without hemorrhage (principal); R03.0 Elevated blood-pressure reading, without diagnosis of hypertension
CPT/HCPCS: 36415; 76856; 80053; 85025; 99284; A9270

== ENCOUNTER 2024-03-06 06:05 | Day surgery (SDC) | payer OTHER, SELFPAY ==
--- OUTSIDE RECORDS SUMMARY | 2024-03-06 06:08 | XMS_ITS | Clinical Summary ---
Author Organization [employer] [facility] Address [place] [address] Care Team Providers Care Group Home Paraprofessional Name Role Phone Fanta Sarmiento MD Primary [...] Department Care Team Description 02/20/2024 Lab Requisition [facility] [phone] Jaja Dominguez CNM from Last 3 Months [...] Comments Blood Pressure 102/68 06/09/2020 3:27 PM [employer] Pulse 72 06/09/2020 3:27 PM [employer] Temperature 36.1 ??C (97 ??F) 04/05/2018 11:33 AM [employer] Respiratory Rate 12 08/01/2015 9:31 AM [employer] Oxygen Saturation 100% 04/05/2018 11:33 AM [employer] Inhaled Oxygen Concentration - - Weight 78.1 kg (172 lb 3.2 oz) 06/09/2020 3:27 P M [employer] Height 170.2 cm (5' 7) 06/09/2020 3:27 PM [employer] Body Mass Index 26.97 06/09/2020 3:27 PM [employer] Plan of Treatment Health Maintenance Due Date [...] EXAM PLACENTA Routine 02/20/2024 6:00 AM CDT HIGH SCHOOL MATH TUTOR THIN PREP PAP SCREEN IMAGED Routine 03/02/2022 12:20 PM CDT ANTI HIV 1/2 Routine 08/03/2011 12:34 PM CDT Supervision of normal first from Last 3 Months or Most Recently Relevant to Health Maintenance Results * LAB TRACKING EVENT (02/20/2024 6:00 AM CDT) Other (Other) Client Collect / Unknown 02/20/2024 6:00 AM CDT 02/20/2024 12:47 PM CDT Jaja Dominguez CNM LAB BILL ONLY [facility] LABORATORY-CENTRAL LABORATORY [address] [place] [address], * PATH TISSUE EXAM PLACENTA (02/20/2024 6:00 AM CDT) Case Report Pathology Report ?Case: [id number] ? Authorizing Provider: ??Jaja Dominguez CNM ?Collected: ? 02/20/2024 0600 ? Ordering Location: ? [facility] ?Received: ?02/20/2024 1400 ? Pathologist: ? Codi Kinney MD ? Specimen: ?Placenta ? 02/22/2024 2:04 PM CDT [facility] LABORATORY-C ENTRAL LABORATORY Final Diagnosis A) PLACENTA, [...] ?No diagnostic abnormalities identified 02/22/2024 2:04 PM [facility]- ENTRAL LABORATORY Comment Circummarginate placental membrane insertion [...] and its complications. 02/22/2024 2:04 PM CDT [facility] LABORATORY-C ENTRAL LABORATORY Clinical Information Vaginal delivery at 40+2 weeks gestational age. For obstetrical history. . No history of diabetes, hypertension, eclampsia, or smoking. 02/22/2024 2:04 PM CDT [facility]-C ENTRAL LABORATORY Gross Description A) Received fresh [...] less than 5% of the placenta parenchyma. Licensed Psychologist Manager sections are submitted: 1. ?? membranes and insertion 2. ??Umbilical cord 3. ??Lesion 4. ??Central placenta with umbilical cord insertion site, full-thickness 5-6. ??Central placenta, full-thickness Time and date in formalin: 1453 on 02/20/2024 [facility] 02/20/2024 02/22/2024 2:04 PM CDT [facility] Microscopic Description The final diagnosis is based on microscopic examination of appropriate sections of all specimens. 02/22/2024 2:04 PM CDT [facility] Additional Information Interpreted at [facility] [employer] [facility] Laboratory - [address], [place] [address] 02/22/2024 2:04 PM CDT [facility] Tissue SPECIMEN FROM PLACENTA / Unknown 02/20/2024 6:00 AM CDT 02/20/2024 2:00 PM CDT Jaja Dominguez CNM PATHOLOGY/CYTOLOGY [facility]-CENTRAL LABORATORY [address] [place] [address], * HIGH SCHOOL MATH TUTOR THIN PREP PAP SCREEN IMAGED (03/02/2022 12:20 PM CDT) Case Report Gynecologic Cytology Report ? Case: [id number] ? Authorizing Provider: ??Bhumi Lorenzo CNM ? Collected: ? 03/02/2022 1220 ? Ordering Location: ? [facility] ?Received: ?03/04/2022 0912 ? First Screen: ?Medina Castro ? Rescreen: ?Sophie Joy ? Specimen: ?HIGH SCHOOL MATH TUTOR ThinPrep Vial Screening, Cervical ? 03/31/2022 3:48 PM [employer] [facility] INTERPRETATION/ RESULT NEGATIVE FOR INTRAEPITHELIAL LESION OR MALIGNANCY (NIL) (none) 03/31/2022 3:48 PM [employer]IDENT [employer] [facility] IMEN ADEQUACY Satisfactory for evaluation Endocervical component present Scant cellularity 03/31/2022 3:48 PM [employer] [facility] HPV REQUEST HPV and PAP 03/31/2022 3:48 PM [employer] [facility] Last Pap Date 03/31/2022 3:48 PM [employer] [facility] Comment:SEVERAL YEARS AGO Last Pap Result NIL 3:48 PM [employer] [facility] Abnormal Pap or [place] Bx in last 5 years No 03/31/2022 3:48 PM [employer] [facility] Menstrual Status 03/31/2022 3:48 PM [employer] [facility] [place] Bx Done Today No 03/31/2022 3:48 PM [employer] [facility] Additional Information 03/31/2022 3:48 PM [employer] [facility] Comment: Interpreted at [facility], Central Laboratory - [address] [facility] [address], [place] [address] Automated Review Successful 03/31/2022 3:48 PM [employer] [facility] Comment:Specimen processed s uccessfully by automated employment law attorney device, ThinPrep Imaging System, [employer] ANCILLARY TESTING HIGH SCHOOL MATH TUTOR HPV Ordered, Please see separate report 03/31/2022 3:48 PM [employer] [facility] Note The pap test is [...] pre-malignant and malignant lesions. 03/31/2022 3:48 PM [employer] [facility] Other (Cervical) 03/02/2022 12:20 PM CDT 03/04/2022 9:12 AM CDT Bhumi Vaughan Bj CNM PATHOLOGY/CYTOLOGY [facility] LABORATORY-CENTRAL LABORATORY [address] [place] [address], [place] * ANTI HIV 1/2 (08/03/2011 12:34 PM CDT) ANTI HIV 1/2 Non-reacti ve [facility] Blood specimen (specimen) BLOOD SPECIMEN / Unknown 08/03/2011 12:34 PM CDT 08/03/2011 12:22 PM CDT Fanta Brooke REFRIGERATOR TESTER SEND OUTS [facility] LABORATORY INTERNAL ZIP [id number] [place] [address] from Last 3 Months or Most Recently Relevant to Health Maintenance Care Teams Group Home Paraprofessional Relationship Specialty Start Date End Date Fanta Sarmiento MD [address] [place] [address] PCP - General 12/19/07
[2024-03-06 06:16] VITALS: BP 129/74; PULSE 79; RESP 18; TEMP 36.7; O2SAT 99; BMI 33.3
[2024-03-06 06:43] LABS: Hemoglobin* 13.2 gm/dL (12.0-16.0)
[2024-03-06] MEDS: DOXYCYCLINE HYCLATE 100 MG 200 MG PO (07:04)
--- NOTE | 2024-03-06 08:05 | W.ANESCHARGE ---
Anesthesia Charges Start Date/Time Anesthesia Start Date: 03/06/24 Anesthesia Start Time: 07:15 Stop Date/Time Anesthesia Stop Date: 03/06/24 Anesthesia Stop Time: 08:42
[2024-03-06] MEDS: miSOPROStoL 800 MCG/4 TABLET PR (08:13)
[2024-03-06 08:40] VITALS: BP 115/67; PULSE 80; RESP 16; TEMP 36.2; O2SAT 98
[2024-03-06 08:45] VITALS: BP 108/82; PULSE 59; RESP 16; O2SAT 97
--- NOTE | 2024-03-06 08:46 | W.ANESCHARGE ---
Anesthesia Charges Start Date/Time Anesthesia Start Date: 03/06/24 Anesthesia Start Time: 07:15 Stop Date/Time Anesthesia Stop Date: 03/06/24 Anesthesia Stop Time: 08:42
[2024-03-06 09:00] VITALS: BP 110/70; PULSE 60; RESP 16; O2SAT 98
[2024-03-06 09:15] VITALS: BP 120/80; PULSE 67; RESP 16; O2SAT 98
[2024-03-06 09:30] VITALS: BP 121/80; PULSE 62; RESP 16; O2SAT 98
--- NOTE | 2024-03-06 17:33 | W.PM.GYNPROC ---
Procedure Note Date of procedure: 02/28/24 Will [facility] bill your pro fee for this procedure?: Yes Pre-op diagnosis: Two weeks with suspected retained placental fragments Post-op diagnosis: Two weeks with suspected retained placental fragments Procedure: Hysteroscopy and dilation and curettage, both visual and sharp, with ultrasound guidance Anesthesia: MAC Complications: None Surgeon: Aletha Anderson MD Estimated blood loss (mL): 100 IV fluids (mL): 0 Urine Output (mL): 230 Pathology: specimen obtained, sent to pathology (1. Hysteroscopic endometrial curettings, 2. Sharp endometrial curettings) Condition: stable Disposition: same day Findings: 1. Upon pelvic exam under anesthesia, the cervix and vagina were normal in appearance. Uterus was mobile and anteverted, approximately 10 weeks size end of normal texture. There were no palpable adnexal masses. 2. Upon hysteroscopy, blood obscured clear visualization for much of the procedure, ultimately making continued hysteroscopy impossible. There appear to be deep red/purple placental fragments adherent to the anterior fundus, and the remainder of the endometrium appeared to contain only some blood clots. The general shape of the endometrial cavity was normal, though tubal ostia were not visualized due to the presence of blood and probable placental debris. 3. With ultrasound guidance, performed after cessation of hysteroscopy, all intrauterine debris appeared avascular and there was a gritty texture noted throughout the uterine cavity with sharp curettage. Saline deficit: 2300 mL saline Procedure Description: Procedure in detail: Patient was taken to the operating room with IV running. She was positioned in dorsal lithotomy position with her legs fully supported in Yellofin stirrups. Monitored anesthesia care was administered. She was prepped and draped in the usual sterile fashion. Exam under anesthesia was performed for the above-noted findings. Speculum was inserted. Cervix visualized and grasped along the anterior lip with a single-tooth tenaculum. Cervix was serially dilated to accommodate the TRUCLEAR hysteroscope. The cervix was patulous, so this was easily accomplished. This was assembled with saline inflow and outflow in place. The line was flushed of bubbles. The hysteroscope was advanced through the cervix into the endometrial cavity for the above noted findings. The tissue morcellator was then inserted through the operating channel. Window lock was performed. Under direct visualization, the endometrial cavity curetted anteriorly with the tissue morcellator. Visualization worsened throughout the course of this procedure, ultimately resulting in inability to continue hysteroscopic curettage. In addition, cervix was quite patulous, and there was abundant leakage of fluid through the cervical os. At time of cessation of hysteroscopy, the fluid deficit was slightly greater than 2 L. The hysteroscope and morcellator were then removed from the uterus. Tenaculum was removed from the anterior lip of cervix. Initially, after cessation of hysteroscopy, it appeared that vaginal bleeding was heavy, though some of this was surely hysteroscopic distension media. The patient was treated with 800 mcg of rectal misoprostol and 1 g of tranexamic acid. Bleeding did slow by the end of the procedure. Ultrasound was called to the operating room to aid in curettage. Allis clamp was applied to the anterior lip the cervix. Sharp curettage was performed under ultrasound guidance, with the findings as described above. Small amount of tissue was obtained for further analysis in this way. Hemostasis was noted. Allis clamp was removed. Patient tolerated procedure well. She was taken to recovery area in stable condition. Postoperative debrief was carried out, and I verbalized my request to send the above described specimens to surgical pathology.
== END 2024-03-06 09:45 | disposition home or self-care (01) ==
PROVIDERS: PCP Obstetrics & Gynecology; Visit Provider Obstetrics & Gynecology
PROC: 0UDB8ZZ Extraction of Endometrium, Via Natural or Artificial Opening Endoscopic (ICD-10-PCS; CPT 58558; principal; 2024-03-06 07:15)
DX: O72.2 Delayed and secondary postpartum hemorrhage (principal)
CPT/HCPCS: 58558; 00952; 36415; 76998; 85018; 86850; 86900; 86901; 88305; A9270; C1782; J1100; J1885; J2250; J2405; J2704; J3010; J3490